=== PATIENT | male | born 1930 | race Caucasian/White ===

== ENCOUNTER 2016-08-24 13:11 | Emergency (ER) | payer MEDICARE, MEDICAID ==
[2016-08-24] MEDS ORDERED: NS 0.9% 1000 ML* 1,000 ML IV SCH (14:30)
[2016-08-24 14:47] LABS: Hematocrit 42 % (42-52); Hemoglobin 14.1 g/dl (14.0-18.0); Mean Corpuscular HGB Conc 33 g/dl (31-36); Mean Corpuscular Hemoglobin 32 pg (27-31); Mean Corpuscular Volume 97 fL (80-94); Mean Platelet Volume 8 um3 (7.4-10.4); Red Blood Count 4.35 10^6/ul (4.0-5.4); Red Cell Distribution Width 14 % (10.5-15); White Blood Count 7.1 10^3/ul (3.5-10.8)
--- NOTE | 2016-08-24 14:55 | RAD ---
HISTORY: Increased confusion COMPARISONS: None TECHNIQUE: Multiple contiguous axial CT scans were obtained of the head without intravenous contrast. FINDINGS: HEMORRHAGE/INFARCT: There is no hemorrhage or acute infarct. MASSES/SHIFT: There is no mass or shift. EXTRA-AXIAL SPACES: There are no extra-axial fluid collections. SULCI AND VENTRICLES: The sulci and ventricles are normal in size and position for the patient's stated age. CEREBRUM: There is hypoattenuation of the periventricular and subcortical white matter. BRAINSTEM: There are no focal parenchymal abnormalities. CEREBELLUM: There are no focal parenchymal abnormalities. VESSELS: The vessels are grossly normal. PARANASAL SINUSES: The paranasal sinuses are clear. ORBITS: The orbits are unremarkable. BONES AND SOFT TISSUE: No bone or soft tissue abnormalities are noted. OTHER: None IMPRESSION: NO ACUTE INTRACRANIAL PATHOLOGY.
[2016-08-24 15:06] LABS: Albumin 3.9 g/dL (3.2-5.2); BUN/Creatinine Ratio 22.2 (8-20); C Reactive Protein 13.53 mg/L (< 5.00); Calcium 9.4 mg/dL (8.6-10.3); EGFR African American 102.7 (>60); EGFR Non-African American 79.8 (>60); Globulin 2.9 g/dL (2-4); Magnesium 2.4 mg/dL (1.9-2.7); Potassium 3.7 mmol/L (3.5-5.0); Total Bilirubin 0.6 mg/dL (0.2-1.0); Total Protein 6.8 g/dL (6.4-8.9)
[2016-08-24 15:07] LABS: Troponin I 0.01 ng/mL (<0.04)
--- NOTE | 2016-08-24 15:07 | RAD ---
Indication: No solid bowel movements. Rectal seepage. Comparison: October 29, 2015 Technique: Supine and upright views of the abdomen. Report: No radiographic evidence for free air. Unremarkable bowel gas pattern. Large volume of stool present throughout the colon however with only mild rectal distention with stool. Negative for dilated bowel loops to indicate obstruction. Pelvic phleboliths. No suspicious calcifications or mass effect. Clear lung bases. IMPRESSION: Large volume of stool throughout the colon without evidence for bowel obstruction. Similar pattern to the prior exam.
[2016-08-24 15:25] LABS: TSH (Thyroid Stimulating Horm) 0.23 mcIU/mL (0.34-5.60)
[2016-08-24 15:53] LABS: Urine Bacteria Absent (Absent); Urine Bilirubin Negative (Negative); Urine Glucose Negative (Negative); Urine Nitrite Negative (Negative)
--- NOTE | 2016-08-24 16:31 | ED ---
Lois Ram Edward, scribed for Jaxson Gutiérrez MD on 08/24/16 at 1405 . GI/ HPI - HPI Summary HPI Summary: 86 y/o male presents to ED c/o increased confusion and fecal seepage. Patient's confusion has been getting progressively worse for the past 7-10 days, according to the patient's daughter in law. The fecal seepage started 3-4 days ago. Associated sx: constipation (last movement one week ago), chronic SOB, increased frequency of urination, bilateral pedal edema and diarrhea. Denies pain, CP, ABD pain, back pain and dry mucosa. Patient was brought in with concerns of fecal impaction by his [id number]. PMHx dementia, fecal impaction, UTI and emphysema. Patient was recently moved into [facility] in [place]. - History of Current Complaint Chief Complaint: EDGeneral Stated Complaint: CONFUSION,CONSTIPATED Hx Obtained From: Patient, Family/Talent Development Consultant - [id number] Onset/Duration: Started Days Ago - Increased confusion started 7-10 days ago, Still Present Pain Intensity: 0 Location of Pain: None Associated Signs and Symptoms: Positive: Constipation, Discharge - Fecal seepage , Diarrhea, Other: - Increased confusion, bilateral pedal edema, mild chronic SOB. Negative: Back Pain, Abdominal Pain, Chest Pain - Additional Pertinent History Primary Care Physician: JOSE - Allergy/Home Medications Allergies/Adverse Reactions: Allergies Allergy/AdvReac Type Severity Reaction Status Date / Time No Known Allergies Allergy Verified 10/24/15 16:22 PMH/Surg Hx/FS Hx/Imm Hx Previously Healthy: No Endocrine/Hematology History: Reports: Hx Thyroid Disease Denies: Hx Anticoagulant Therapy, Hx Diabetes Cardiovascular History: Reports: Hx Angina, Hx Hypercholesterolemia, Hx Hypertension, Other Cardiovascular Problems/Disorders - ANGINA Denies: Hx Congestive Heart Failure, Hx Deep Vein Thrombosis, Hx Myocardial Infarction, Hx Pacemaker/ICD Respiratory History: Reports: Hx Chronic Obstructive Pulmonary Disease (COPD), Other Respiratory Problems/Disorders - COPD Denies: Hx Asthma, Hx Lung Cancer, Hx Pneumonia, Hx Pulmonary Embolism GI History: Reports: Hx Gastroesophageal Reflux Disease - WELL CONTROLLED Denies: Hx Gall Bladder Disease, Hx Gastrointestinal Bleed, Hx Ulcer, Hx Urosepsis History: Reports: Hx Benign Prostatic Hyperplasia, Other Problems/ Disorders - indwelling piedra Denies: Hx Kidney Stones, Hx Renal Disease Sensory History: Reports: Hx Contacts or Glasses, Hx Hearing Aid - BILAT Opthamlomology History: Reports: Hx Contacts or Glasses Neurological History: Denies: Hx Dementia, Hx Migraine, Hx Seizures, Hx Transient Ischemic Attacks (TIA) Psychiatric History: Denies: Hx Anxiety, Hx Depression, Hx Schizophrenia, Hx Bipolar Disorder - Surgical History Surgery Procedure, Year, and Place: 2014 Hx Anesthesia Reactions: No Infectious Disease History: No Infectious Disease History: Denies: Hx Clostridium Difficile, Hx Hepatitis, Hx Human Immunodeficiency Virus (HIV), Hx of Known/Suspected MRSA, Hx Shingles, Hx Tuberculosis, Hx Known/ Suspected VRE, Hx Known/Suspected VRSA, History Other Infectious Disease, Traveled Outside the [place] in Last 30 Days - Family History Family History: no fhx of malignant hyperthermia or anesthesia reaction - Social History Occupation: Retired Lives: Assisted Living - [place] Alcohol Use: None Hx Substance Use: No Substance Use Type: Reports: None Hx Tobacco Use: Yes Smoking Status (MU): Former Smoker Type: Cigarettes Length of Time of Smoking/Using Tobacco: 40 years Have You Smoked in the Last Year: No Review of Systems Constitutional: Negative Eyes: Negative ENT: Negative Cardiovascular: Negative Negative: Chest Pain Positive: Shortness Of Breath Positive: Diarrhea, Other - Constipation. Negative: Abdominal Pain Positive: frequency - Increased frequency Positive: Edema - Mild bilateral pedal edema Skin: Negative Neurological: Other - Increased confusion Psychological: Normal All Other Systems Reviewed And Are Negative: Yes Physical Exam Triage Information Reviewed: Yes Vital Signs On Initial Exam: Initial Vitals Temp 97.7 F 08/24/16 13:15 Vital Signs Reviewed: Yes Appearance: Positive: Well-Appearing, No Pain Distress Skin: Positive: Warm, Skin Color Reflects Adequate Perfusion, Dry Head/Face: Positive: Normal Head/Face Inspection Eyes: Positive: EOMI, JANINE ENT: Positive: Normal ENT inspection Neck: Positive: Supple, Nontender Respiratory/Lung Sounds: Positive: Clear to Auscultation, Breath Sounds Present Cardiovascular: Positive: RRR Abdomen Description: Positive: Nontender, Soft, Other: - Minimal discomfort in the LLQ to palpation Bowel Sounds: Positive: Present Musculoskeletal: Positive: Normal, Strength/ROM Intact Neurological: Positive: Sensory/Motor Intact, Alert, Oriented to Person Place, Time, Other - Mild confusion. Psychiatric: Positive: Affect/Mood Appropriate - [place] Coma Scale Best Eye Response: 4 - Spontaneous Best Motor Response: 6 - Obeys Commands Best Verbal Response: 5 - Oriented Coma Scale Total: 15 Diagnostics - Vital Signs Vital Signs Temp Pulse Resp BP Pulse Ox 08/24/16 14:00 63 17 95 08/24/16 13:31 66 28 162/60 98 08/24/16 13:29 74 97 08/24/16 13:17 97.7 F 75 20 148/93 95 08/24/16 13:15 97.7 F - Laboratory Lab Results: Lab Results 08/24/16 08/24/16 08/24/16 Range/Units 14:31 14:31 14:31 WBC 7.1 (3.5-10.8) 10^3/ul RBC 4.35 (4.0-5.4) 10^6/ul Hgb 14.1 (14.0-18.0) g/dl Hct 42 (42-52) % MCV 97 H (80-94) fL MCH 32 H (27-31) pg MCHC 33 (31-36) g/dl RDW 14 (10.5-15) % Plt Count 248 (150-450) 10^3/ul MPV 8 (7.4-10.4) um3 Neut % (Auto) 63.0 (38-83) % Lymph % (Auto) 24.3 L (25-47) % [place] % (Auto) 8.0 (1-9) % Eos % (Auto) 3.7 (0-6) % Baso % (Auto) 1.0 (0-2) % Absolute Neuts (auto) 4.5 (1.5-7.7) 10^3/ul Absolute Lymphs (auto) 1.7 (1.0-4.8) 10^3/ul Absolute Monos (auto) 0.6 (0-0.8) 10^3/ul Absolute Eos (auto) 0.3 (0-0.6) 10^3/ul Absolute Basos (auto) 0.1 (0-0.2) 10^3/ul Absolute Nucleated RBC 0.01 10^3/ul Nucleated RBC % 0.1 INR (Anticoag Therapy) 0.90 (0.89-1.11) APTT 31.8 (26.0-36.3) seconds Sodium 137 (133-145) mmol/L Potassium 3.7 (3.5-5.0) mmol/L Chloride 101 (101-111) mmol/L Carbon Dioxide 30 (22-32) mmol/L Anion Gap 6 (2-11) mmol/L BUN 20 (6-24) mg/dL Creatinine 0.90 (0.67-1.17) mg/dL Est GFR ( Amer) 102.7 (>60) Est GFR (Non-Af Amer) 79.8 (>60) BUN/Creatinine Ratio 22.2 H (8-20) Glucose 116 H (70-100) mg/dL Lactic Acid (0.5-2.0) mmol/L Calcium 9.4 (8.6-10.3) mg/dL Magnesium 2.4 (1.9-2.7) mg/dL Total Bilirubin 0.60 (0.2-1.0) mg/dL AST 16 (13-39) U/L ALT 12 (7-52) U/L Alkaline Phosphatase 75 (34-104) U/L Total Creatine Kinase 117 (10-223) U/L CK-MB (CK-2) 5.5 (0.6-6.3) ng/mL Troponin I 0.01 (<0.04) ng/mL C-Reactive Protein 13.53 H (< 5.00) mg/L Total Protein 6.8 (6.4-8.9) g/dL Albumin 3.9 (3.2-5.2) g/dL Globulin 2.9 (2-4) g/dL Albumin/Globulin Ratio 1.3 (1-3) Lipase 12 (11.0-82.0) U/L TSH 0.23 L (0.34-5.60) mcIU/mL Urine Color Urine Appearance Urine pH (5-9) Ur Specific [place] (1.010-1.030) Urine Protein (Negative) Urine Ketones (Negative) Urine Blood (Negative) Urine Nitrate (Negative) Urine Bilirubin (Negative) Urine Urobilinogen (Negative) Ur Leukocyte Esterase (Negative) Urine WBC (Auto) (Absent) Urine RBC (Auto) (Absent) Ur Squamous Epith Cells (Absent) Urine Bacteria (Absent) Urine Glucose (Negative) 08/24/16 08/24/16 Range/Units 14:31 15:21 WBC (3.5-10.8) 10^3/ul RBC (4.0-5.4) 10^6/ul Hgb (14.0-18.0) g/dl Hct (42-52) % MCV (80-94) fL MCH (27-31) pg MCHC (31-36) g/dl RDW (10.5-15) % Plt Count (150-450) 10^3/ul MPV (7.4-10.4) um3 Neut % (Auto) (38-83) % Lymph % (Auto) (25-47) % [place] % (Auto) (1-9) % Eos % (Auto) (0-6) % Baso % (Auto) (0-2) % Absolute Neuts (auto) (1.5-7.7) 10^3/ul Absolute Lymphs (auto) (1.0-4.8) 10^3/ul Absolute Monos (auto) (0-0.8) 10^3/ul Absolute Eos (auto) (0-0.6) 10^3/ul Absolute Basos (auto) (0-0.2) 10^3/ul Absolute Nucleated RBC 10^3/ul Nucleated RBC % INR (Anticoag Therapy) (0.89-1.11) APTT (26.0-36.3) seconds Sodium (133-145) mmol/L Potassium (3.5-5.0) mmol/L Chloride (101-111) mmol/L Carbon Dioxide (22-32) mmol/L Anion Gap (2-11) mmol/L BUN (6-24) mg/dL Creatinine (0.67-1.17) mg/dL Est GFR ( Amer) (>60) Est GFR (Non-Af Amer) (>60) BUN/Creatinine Ratio (8-20) Glucose (70-100) mg/dL Lactic Acid 0.8 (0.5-2.0) mmol/L Calcium (8.6-10.3) mg/dL Magnesium (1.9-2.7) mg/dL Total Bilirubin (0.2-1.0) mg/dL AST (13-39) U/L ALT (7-52) U/L Alkaline Phosphatase (34-104) U/L Total Creatine Kinase (10-223) U/L CK-MB (CK-2) (0.6-6.3) ng/mL Troponin I (<0.04) ng/mL C-Reactive Protein (< 5.00) mg/L Total Protein (6.4-8.9) g/dL Albumin (3.2-5.2) g/dL Globulin (2-4) g/dL Albumin/Globulin Ratio (1-3) Lipase (11.0-82.0) U/L TSH (0.34-5.60) mcIU/mL Urine Color Straw Urine Appearance Clear Urine pH 7.0 (5-9) Ur Specific [place] 1.010 (1.010-1.030) Urine Protein Negative (Negative) Urine Ketones Negative (Negative) Urine Blood Negative (Negative) Urine Nitrate Negative (Negative) Urine Bilirubin Negative (Negative) Urine Urobilinogen Negative (Negative) Ur Leukocyte Esterase Trace H (Negative) Urine WBC (Auto) Trace(0-5/hpf) (Absent) Urine RBC (Auto) Absent (Absent) Ur Squamous Epith Cells Present H (Absent) Urine Bacteria Absent (Absent) Urine Glucose Negative (Negative) Result Diagrams: 08/24/16 14:31 08/24/16 14:31 Lab Statement: Any lab studies that have been ordered have been reviewed, and results considered in the medical decision making process. - Radiology ABD XRAY Xray Interpretation: Positive (See Comments) - Large volume of stool throughout the colon without evidence for bowel obstruction. Similar pattern to the prior exam. Radiology Interpretation Completed By: Radiologist - CT BRAIN CT CT Interpretation: No Acute Changes - No acute intracranial pathology CT Interpretation Completed By: Radiologist GIGU Course/Dx - Course Course Of Treatment: NO CRITICAL CARE TIME. DISCUSSED RESULTS WITH PATIENT/ DAUGHTER. PATIENT ONLY MILDLY CONFUSED NOW. DISCUSSED WITH DR MEJIA WHO RECOMMENDED PO TREATMENTS AND ENEMAS PRIOR TO CONSIDERING SIGMOIDOSCOPY OR OTHER INTERVENTIONS. THIS WAS ALL DISCUSSED WITH PATIENT/DAUGHTER. DAUGHTER DECLINES ENEMAS THIS WAS UNSUCCESSFUL IN THE PAST AND CAUSED THE PATIENT GREAT DISTRESS. THEY FEEL COMFORTABLE GOING HOME. TONIGHT WILL TAKE MAG CITRATE. IF THAT IS NOT SUCCESSFUL, TOMOOROW THEY WILL TRY GOLYTELY. WILL F/U WITH PMD AND GI. WILL RETURN IF WORSE. - Diagnoses Provider Diagnoses: Altered mental state, Obstipation, Constipation Discharge - Discharge Plan Condition: Stable Disposition: HOME Prescriptions: Magnesium CITRATE* [Citrate of Magnesia*] 300 ml PO ONCE #1 btl Peg 3000 Gi Lavage* [Golytely*] 4,000 ml PO ONCE #1 btl Patient Education Materials: Altered Mental Status (ED), Constipation (ED), Obstipation (ED) Referrals: Nav Feng MD [Primary Care Provider] - Additional Instructions: FOLLOW UP WITH YOUR DOCTOR. RETURN TO THE EMERGENCY DEPARTMENT FOR ANY WORSENING OF YOUR CONDITION; INCREASED CONFUSION, FEVER, YOU FEEL ILL, PAIN OR QUESTIONS OR CONCERNS. The documentation as recorded by the Lois foster Edward accurately reflects the service I personally performed and the decisions made by me, Jaxson Gutiérrez MD.
[2016-08-24 16:42] VITALS: BP 147/57
== END 2016-08-24 16:44 | disposition home or self-care (01) ==
LOC: ED 13:11
DX: R41.82 Altered mental status, unspecified (principal); K59.00 Constipation, unspecified; R06.02 Shortness of breath; Z87.891 Personal history of nicotine dependence; R19.7 Diarrhea, unspecified; R60.9 Edema, unspecified
CPT/HCPCS: 36415; 70450; 74020; 80053; 81003; 81015; 82550; 82553; 83605; 83690; 83735; 84443; 84484; 85025; 85610; 85730; 86140; 87086; 99283

== ENCOUNTER 2016-08-25 01:52 | Emergency (ER) | payer MEDICARE, MEDICAID ==
--- NOTE | 2016-08-25 03:16 | ED ---
Quyen Ram Salem, scribed for Lopez Calero MD on 08/25/16 at 0216 . Head Injury - HPI Summary HPI Summary: Patient is a 86 y/o M who presents to the ED per EMS s/p fall earlier today. He states that the bathroom floor was wet and that he slipped. Pt denies LOC, but reports abrasion to forehead. PMHx of COPD, angina, and constipation. - History Of Current Complaint Chief Complaint: EDHeadInjury Stated Complaint: FALL Time Seen by Provider: 08/25/16 01:54 Hx Obtained From: Patient, EMS Mechanism Of Injury: Fall From A Standing Position Onset/Duration: Started Hours Ago Onset of Pain: Hours Severity Currently: Moderate Severity Initially: Moderate Pain Intensity: 0 Pain Scale Used: 0-10 Numeric Location of Head Injury: Frontal Location: Discrete At: - Forehead. Associated Signs And Symptoms: Negative - Allergies/Home Medications Allergies/Adverse Reactions: Allergies Allergy/AdvReac Type Severity Reaction Status Date / Time No Known Allergies Allergy Verified 10/24/15 16:22 PMH/Surg Hx/FS Hx/Imm Hx Endocrine/Hematology History: Reports: Hx Thyroid Disease Denies: Hx Anticoagulant Therapy, Hx Diabetes Cardiovascular History: Reports: Hx Angina, Hx Hypercholesterolemia, Hx Hypertension, Other Cardiovascular Problems/Disorders - ANGINA Denies: Hx Congestive Heart Failure, Hx Deep Vein Thrombosis, Hx Myocardial Infarction, Hx Pacemaker/ICD Respiratory History: Reports: Hx Chronic Obstructive Pulmonary Disease (COPD), Other Respiratory Problems/Disorders - COPD Denies: Hx Asthma, Hx Lung Cancer, Hx Pneumonia, Hx Pulmonary Embolism GI History: Reports: Hx Gastroesophageal Reflux Disease - WELL CONTROLLED Denies: Hx Gall Bladder Disease, Hx Gastrointestinal Bleed, Hx Ulcer, Hx Urosepsis History: Reports: Hx Benign Prostatic Hyperplasia, Other Problems/ Disorders - indwelling piedra Denies: Hx Kidney Stones, Hx Renal Disease Sensory History: Reports: Hx Contacts or Glasses, Hx Hearing Aid - BILAT Opthamlomology History: Reports: Hx Contacts or Glasses Neurological History: Denies: Hx Dementia, Hx Migraine, Hx Seizures, Hx Transient Ischemic Attacks (TIA) Psychiatric History: Denies: Hx Anxiety, Hx Depression, Hx Schizophrenia, Hx Bipolar Disorder - Surgical History Surgery Procedure, Year, and Place: [id number] Hx Anesthesia Reactions: No Infectious Disease History: No Infectious Disease History: Denies: Hx Clostridium Difficile, Hx Hepatitis, Hx Human Immunodeficiency Virus (HIV), Hx of Known/Suspected MRSA, Hx Shingles, Hx Tuberculosis, Hx Known/ Suspected VRE, Hx Known/Suspected VRSA, History Other Infectious Disease, Traveled Outside the [place] in Last 30 Days - Family History Known Family History: Positive: Cardiac Disease Family History: no fhx of malignant hyperthermia or anesthesia reaction - Social History Alcohol Use: Occasionally Hx Substance Use: No Substance Use Type: Reports: None Hx Tobacco Use: Yes Smoking Status (MU): Former Smoker Type: Cigarettes Length of Time of Smoking/Using Tobacco: 40 years Have You Smoked in the Last Year: No Review of Systems Positive: Other - Abrasion to forehead. Neurological: Other - No LOC. All Other Systems Reviewed And Are Negative: Yes Physical Exam Triage Information Reviewed: Yes Vital Signs On Initial Exam: Initial Vitals Temp Pulse Resp BP Pulse Ox 98.6 F 67 16 150/57 95 08/25/16 01:59 08/25/16 01:59 08/25/16 01:59 08/25/16 01:59 08/25/16 01:59 Vital Signs Reviewed: Yes Appearance: Positive: Well-Appearing, No Pain Distress Skin: Positive: Warm, Other - abrasion to forehead Eyes: Positive: JANNIE ENT: Positive: Hearing grossly normal Neck: Positive: Supple Respiratory/Lung Sounds: Positive: Clear to Auscultation, Breath Sounds Present Cardiovascular: Positive: RRR Abdomen Description: Positive: Nontender, Soft Bowel Sounds: Positive: Present Musculoskeletal: Positive: Strength/ROM Intact Neurological: Positive: Alert, Oriented to Person Place, Time Psychiatric: Positive: Affect/Mood Appropriate - [place] Coma Scale Coma Scale Total: 15 Diagnostics - Vital Signs Vital Signs Temp Pulse Resp BP Pulse Ox 08/25/16 02:00 98.6 F 67 16 150/57 95 08/25/16 01:59 98.6 F 67 16 150/57 95 - Laboratory Lab Statement: Any lab studies that have been ordered have been reviewed, and results considered in the medical decision making process. - CT BRAIN CT Interpretation Completed By: Radiologist - Findings: Involutional changes with moderate ventriculomegaly again noted. No hemorrhage. No mass. No visible acute infract. Osseous structures are intact. Re-Evaluation - Re-Evaluation First Eval Change: Improved Head Injury Course/Dx Course Of Treatment: 86 y/o M presents per EMS s/p fall earlier today. Pt denies LOC, but reports abrasion to forehead. CT of brain shows, per radiology, Findings: Involutional changes with moderate ventriculomegaly again noted. No hemorrhage. No mass. No visible acute infract. Osseous structures are intact. Pt will be DC'd. - Diagnoses Provider Diagnoses: Head injury Discharge - Discharge Plan Condition: Stable Disposition: HOME Patient Education Materials: Head Injury (ED) Referrals: Nav Feng MD [Primary Care Provider] - Additional Instructions: Please follow up with your primary care provider. The documentation as recorded by the Quyen foster Salem accurately reflects the service I personally performed and the decisions made by me, Lopez Calero MD.
[2016-08-25 03:40] VITALS: BP 134/61
--- NOTE | 2016-08-25 08:07 | RAD ---
HISTORY: Fall, head trauma COMPARISONS: None TECHNIQUE: Multiple contiguous axial CT scans were obtained of the head without intravenous contrast. FINDINGS: HEMORRHAGE/INFARCT: There is no hemorrhage or acute infarct. MASSES/SHIFT: There is no mass or shift. EXTRA-AXIAL SPACES: There are no extra-axial fluid collections. SULCI AND VENTRICLES: The sulci and ventricles are normal in size and position for the patient's stated age. CEREBRUM: There is hypoattenuation of the periventricular and subcortical white matter. BRAINSTEM: There are no focal parenchymal abnormalities. CEREBELLUM: There are no focal parenchymal abnormalities. VESSELS: The vessels are grossly normal. PARANASAL SINUSES: The paranasal sinuses are clear. ORBITS: The orbits are unremarkable. BONES AND SOFT TISSUE: No bone or soft tissue abnormalities are noted. OTHER: None IMPRESSION: NO ACUTE INTRACRANIAL PATHOLOGY.
== END 2016-08-25 04:30 | disposition home or self-care (01) ==
LOC: ED 01:52
DX: S09.90XA Unspecified injury of head, initial encounter (principal); S00.81XA Abrasion of other part of head, initial encounter; W19.XXXA Unspecified fall, initial encounter; Y93.9 Activity, unspecified; Y92.89 Other specified places as the place of occurrence of the external cause; Y99.8 Other external cause status; Z87.891 Personal history of nicotine dependence; Y92.9 Unspecified place or not applicable
CPT/HCPCS: 70450; 99283

== ENCOUNTER → 2016-10-16 14:01 | Emergency (ER) | payer MEDICAID, MEDICARE ==
[2016-10-16 14:17] VITALS: BP 152/59
--- NOTE | 2016-10-16 15:04 | ED ---
Head Injury - HPI Summary HPI Summary: Pt w/ hearing deficit and mild dementia here from long-term - report of him falling out of chair and hitting his head - lost balance while reaching for something while seated and fell. Pt reports he fell - mentions something about his protective undergarments and that he couldn't get up so they brought him here. Denies pain - reports he's embarrassed more than anything. No DANIELSON, neck pain, chest pain, back pain, SOB, LE pain. Feels well. - History Of Current Complaint Chief Complaint: EDHeadInjury Stated Complaint: FALL, HEAD INJURY Time Seen by Provider: 10/16/16 14:08 Hx Obtained From: Patient Pain Intensity: 0 - Allergies/Home Medications Allergies/Adverse Reactions: Allergies Allergy/AdvReac Type Severity Reaction Status Date / Time No Known Allergies Allergy Verified 10/24/15 16:22 PMH/Surg Hx/FS Hx/Imm Hx Previously Healthy: Yes Endocrine/Hematology History: Reports: Hx Thyroid Disease Denies: Hx Anticoagulant Therapy, Hx Diabetes Cardiovascular History: Reports: Hx Angina, Hx Hypercholesterolemia, Hx Hypertension, Other Cardiovascular Problems/Disorders - ANGINA Denies: Hx Congestive Heart Failure, Hx Deep Vein Thrombosis, Hx Myocardial Infarction, Hx Pacemaker/ICD Respiratory History: Reports: Hx Chronic Obstructive Pulmonary Disease (COPD) Denies: Hx Asthma, Hx Lung Cancer, Hx Pneumonia, Hx Pulmonary Embolism GI History: Reports: Hx Gastroesophageal Reflux Disease - WELL CONTROLLED Denies: Hx Gall Bladder Disease, Hx Gastrointestinal Bleed, Hx Ulcer, Hx Urosepsis History: Reports: Hx Benign Prostatic Hyperplasia, Other Problems/ Disorders - indwelling piedra Denies: Hx Kidney Stones, Hx Renal Disease Sensory History: Reports: Hx Contacts or Glasses, Hx Hearing Aid - BILAT Opthamlomology History: Reports: Hx Contacts or Glasses Neurological History: Denies: Hx Dementia, Hx Migraine, Hx Seizures, Hx Transient Ischemic Attacks (TIA) Psychiatric History: Denies: Hx Anxiety, Hx Depression, Hx Schizophrenia, Hx Bipolar Disorder - Surgical History Surgery Procedure, Year, and Place: TUR2014 Hx Anesthesia Reactions: No Infectious Disease History: No Infectious Disease History: Denies: Hx Clostridium Difficile, Hx Hepatitis, Hx Human Immunodeficiency Virus (HIV), Hx of Known/Suspected MRSA, Hx Shingles, Hx Tuberculosis, Hx Known/ Suspected VRE, Hx Known/Suspected VRSA, History Other Infectious Disease, Traveled Outside the [place] in Last 30 Days - Family History Known Family History: Positive: Cardiac Disease Family History: no fhx of malignant hyperthermia or anesthesia reaction - Social History Occupation: Retired [facility]: [facility] Alcohol Use: Occasionally Hx Substance Use: No Substance Use Type: Reports: None Hx Tobacco Use: Yes Smoking Status (MU): Former Smoker Type: Cigarettes Length of Time of Smoking/Using Tobacco: 40 years Have You Smoked in the Last Year: No Review of Systems Constitutional: Negative Negative: Fatigue Eyes: Negative Negative: Photophobia, Blurred Vision, Diplopia ENT: Negative Negative: Dental Pain, Sore Throat, Ear Ache Cardiovascular: Negative Negative: Chest Pain Respiratory: Negative Negative: Shortness Of Breath Gastrointestinal: Negative Negative: Abdominal Pain, Vomiting, Nausea Positive: no symptoms reported Musculoskeletal: Negative Negative: Arthralgia, Myalgia, Decreased ROM, Edema Skin: Negative Negative: Bruising Neurological: Negative Negative: Headache, Weakness, Paresthesia, Numbness, Syncope, Slurred Speech Psychological: Normal All Other Systems Reviewed And Are Negative: Yes Physical Exam Triage Information Reviewed: Yes Vital Signs On Initial Exam: Initial Vitals Temp Pulse Resp BP Pulse Ox 98.3 F 88 18 152/59 93 10/16/16 14:11 10/16/16 14:11 10/16/16 14:11 10/16/16 14:11 10/16/16 14:11 Vital Signs Reviewed: Yes Appearance: Positive: Well-Appearing, No Pain Distress, Well-Nourished Skin: Positive: Warm, Dry - no signs of trauma over body - bruising, lacerations , swelling, scabbing, etc Head/Face: Positive: Normal Head/Face Inspection Eyes: Positive: Normal, EOMI, JANINE, Conjunctiva Clear ENT: Positive: Pharynx normal. Negative: Hearing grossly normal - hearing aids B/L - still has reduced hearing, Nasal congestion, Nasal drainage, Trismus, Muffled/hoarse voice Dental: Negative: Dental Fracture @ Neck: Positive: Supple, Nontender Respiratory/Lung Sounds: Positive: Clear to Auscultation, Breath Sounds Present. Negative: Rales, Rhonchi, Subcutaneous Emphysema, Stridor, Tracheal Deviation Cardiovascular: Positive: Normal, RRR, Pulses are Symmetrical in both Upper and Lower Extremities, S1, S2 Abdomen Description: Positive: Nontender, No Organomegaly, Soft Bowel Sounds: Positive: Present Musculoskeletal: Positive: Normal, Strength/ROM Intact Neurological: Positive: Normal, Sensory/Motor Intact, Alert, Oriented to Person Place, Time, CN Intact II-III Psychiatric: Positive: Normal - pleasant - mild element of dementia and very difficult hearing but appears to be in good spirits and has current body awareness Diagnostics - Vital Signs Vital Signs Temp Pulse Resp BP Pulse Ox 10/16/16 14:11 98.3 F 88 18 152/59 93 - Laboratory Lab Statement: Any lab studies that have been ordered have been reviewed, and results considered in the medical decision making process. Head Injury Course/Dx Course Of Treatment: Pt sent here from long-term for fall - no acute injury reported by pt, no pain and no neuro deficits appreciated on exam. CT's are neg for acute findings however pt has moderate to severe cervical central canal narrowing w/ possible compression on spinal cord. Spoke w/ Jael, nurse in [facility]" who is aware of this finding and that he needs f/u w/ PCP this week to discuss preventative care plan as inury to neck could result in paralysis/ . Jael voices understanding and agrees to contact family as no one is here w/ him today. He will return to long-term with d/c instructions. Danger s/sx reviewed. - Diagnoses Provider Diagnoses: Fall, Central stenosis of spinal canal Discharge - Discharge Plan Condition: Stable Disposition: HOME Patient Education Materials: Fall Prevention for Older Adults (ED), Cervical Spinal Stenosis (ED) Referrals: Nav Feng MD [Primary Care Provider] - Additional Instructions: Your recent fall does not reveal new injuries. Your CT scan of your neck however reveals moderate to severe narrowing of your spinal canal and with likely compression on your spinal cord. You do not appear to have neurological deficits today (other than reduced hearing) so no action was taken to address this here in the ED. It is advised however that you follow-up with your PCP this week for further review of preventative care plan as an acute injury here could result in severe neurological injury and debilitating outcomes. Jael, nurse in [facility], is aware and may be of assistance in helping you contact your family and PCP for follow-up appointment. *If you develop headache, visual change, weakness, numbness, difficulty breathing or swallowing or syncope, return to ED
--- NOTE | 2016-10-16 15:35 | RAD ---
INDICATION: Head injury. COMPARISON: Comparison is made with prior CT of the brain from August 25, 2016. TECHNIQUE: Contiguous axial sections of the brain were obtained from the skull base to the vertex without contrast. FINDINGS: The ventricles, cisterns and sulci are enlarged consistent with diffuse atrophy. There are small areas of decreased density in the subcortical and periventricular white matter suggestive of mild chronic small vessel ischemic changes. No other focal abnormality or mass effect is seen. There is no evidence for hemorrhage. No significant focal osseous abnormality is seen. The visualized portion of the paranasal sinuses and mastoid air cells appear clear. IMPRESSION: NO EVIDENCE FOR ACUTE INTRACRANIAL ABNORMALITY.
--- NOTE | 2016-10-16 15:44 | RAD ---
INDICATION: Trauma. COMPARISON: There are no prior studies available for comparison. TECHNIQUE: Contiguous axial sections were obtained from the skull base through the T3 vertebra. Images were reconstructed in the sagittal and coronal planes. FINDINGS: There is straightening of the cervical spine with loss of the normal cervical lordosis. In addition there is posterior subluxation of the C4 vertebra relative to the C3 and C5 vertebra of approximately 4 mm. No fracture is seen. At the C3-C4 level there is posterior uncinate process spurring and moderate hypertrophic changes within the facet joints. There appears to be mild to moderate spinal canal narrowing and moderate to severe bilateral neural foraminal narrowing. At the C4-C5 level there is posterior uncinate process spurring and moderate hypertrophic changes within the facet joints. There is moderate to severe spinal canal narrowing and moderate to severe bilateral neural foraminal narrowing. There is likely spinal cord compression at this level. At the C5-C6 level there is mild posterior uncinate process spurring and moderate hypertrophic changes within the facet joints. There is mild to moderate spinal canal narrowing and moderate bilateral neural foraminal narrowing. At the C6-C7 level there is posterior uncinate process spurring and mild hypertrophic changes within the facet joints. There is moderate spinal canal narrowing and moderate bilateral neural foraminal narrowing. IMPRESSION: 1. NO EVIDENCE FOR FRACTURE. 2. 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 3. 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 AT THAT LEVEL THERE IS MODERATE TO SEVERE SPINAL CANAL NARROWING AND LIKELY SPINAL CORD COMPRESSION. THIS COULD BE FURTHER EVALUATED WITH MR IMAGING CLINICALLY NEEDED.
== END | disposition home or self-care (01) ==
LOC: ED 14:01
DX: M48.00 Spinal stenosis, site unspecified (principal); F03.90 Unspecified dementia, unspecified severity, without behavioral disturbance, psychotic disturbance, mood disturbance, and anxiety; Z87.891 Personal history of nicotine dependence
CPT/HCPCS: 70450; 72125; 99281

== ENCOUNTER 2016-11-06 17:01 | Emergency (ER) | payer MEDICARE ==
--- NOTE | 2016-11-06 17:49 | ED ---
Lower Extremity - HPI Summary HPI Summary: 86M presents with right hip pain s/p fall. He states I have done it again. He states he tripped on something and fell. He landed on right hip. He has baseline dementia. He denies any head injury. He denies any chest pain, SOB, abdominal pain. He denies any upper extremity pain. He denies any numbness or tingling. He states he fell and was unable to get up and they helped him up and sent him here. He stats he just wants to go back,. - History of Current Complaint Chief Complaint: EDHipPelvisInjury Stated Complaint: FALL Time Seen by Provider: 11/06/16 17:40 Pain Intensity: 0 - Allergies/Home Medications Allergies/Adverse Reactions: Allergies Allergy/AdvReac Type Severity Reaction Status Date / Time No Known Allergies Allergy Verified 11/06/16 17:19 PMH/Surg Hx/FS Hx/Imm Hx Endocrine/Hematology History: Reports: Hx Thyroid Disease Denies: Hx Anticoagulant Therapy, Hx Diabetes Cardiovascular History: Reports: Hx Angina, Hx Hypercholesterolemia, Hx Hypertension, Other Cardiovascular Problems/Disorders - ANGINA Denies: Hx Congestive Heart Failure, Hx Deep Vein Thrombosis, Hx Myocardial Infarction, Hx Pacemaker/ICD Respiratory History: Reports: Hx Chronic Obstructive Pulmonary Disease (COPD) Denies: Hx Asthma, Hx Lung Cancer, Hx Pneumonia, Hx Pulmonary Embolism GI History: Reports: Hx Gastroesophageal Reflux Disease - WELL CONTROLLED Denies: Hx Gall Bladder Disease, Hx Gastrointestinal Bleed, Hx Ulcer, Hx Urosepsis History: Reports: Hx Benign Prostatic Hyperplasia, Other Problems/ Disorders - indwelling piedra Denies: Hx Kidney Stones, Hx Renal Disease Sensory History: Reports: Hx Contacts or Glasses, Hx Hearing Aid - BILAT Opthamlomology History: Reports: Hx Contacts or Glasses Neurological History: Denies: Hx Dementia, Hx Migraine, Hx Seizures, Hx Transient Ischemic Attacks (TIA) Psychiatric History: Denies: Hx Anxiety, Hx Depression, Hx Schizophrenia, Hx Bipolar Disorder - Surgical History Surgery Procedure, Year, and Place: TUR2014 Hx Anesthesia Reactions: No Infectious Disease History: Yes Infectious Disease History: Denies: Hx Clostridium Difficile, Hx Hepatitis, Hx Human Immunodeficiency Virus (HIV), Hx of Known/Suspected MRSA, Hx Shingles, Hx Tuberculosis, Hx Known/ Suspected VRE, Hx Known/Suspected VRSA, History Other Infectious Disease, Traveled Outside the [place] in Last 30 Days - Family History Known Family History: Positive: Cardiac Disease Family History: no fhx of malignant hyperthermia or anesthesia reaction - Social History Alcohol Use: Occasionally Hx Substance Use: No Substance Use Type: Reports: None Hx Tobacco Use: Yes Smoking Status (MU): Former Smoker Type: Cigarettes Length of Time of Smoking/Using Tobacco: 40 years Have You Smoked in the Last Year: No Review of Systems Negative: Fever Negative: Chest Pain Negative: Shortness Of Breath Positive: Myalgia - right hip pain All Other Systems Reviewed And Are Negative: Yes Physical Exam Triage Information Reviewed: Yes Vital Signs On Initial Exam: Initial Vitals BP 160/63 11/06/16 17:11 Vital Signs Reviewed: Yes Appearance: Positive: Well-Appearing Skin: Positive: Warm, Dry Head/Face: Positive: Normal Head/Face Inspection Eyes: Positive: Normal, EOMI, JANINE, Conjunctiva Clear ENT: Positive: Normal ENT inspection, Pharynx normal, TMs normal Respiratory/Lung Sounds: Positive: Clear to Auscultation, Breath Sounds Present Cardiovascular: Positive: Normal, RRR Musculoskeletal: Positive: Strength/ROM Intact - right hip, Other - good pulses , no ecchymosis over hip Neurological: Positive: Sensory/Motor Intact, Alert, Oriented to Person Place, Time, CN Intact II-III - [place] Coma Scale Best Eye Response: 4 - Spontaneous Best Motor Response: 6 - Obeys Commands Best Verbal Response: 5 - Oriented Coma Scale Total: 15 Diagnostics - Vital Signs Vital Signs Temp Pulse Resp BP Pulse Ox 11/06/16 17:30 64 150/60 92 11/06/16 17:14 68 94 11/06/16 17:12 98.5 F 73 14 160/63 100 11/06/16 17:11 160/63 - Laboratory Lab Statement: Any lab studies that have been ordered have been reviewed, and results considered in the medical decision making process. - Radiology hip Xray Interpretation: No Acute Changes Radiology Interpretation Completed By: Radiologist - CT brain CT Interpretation: No Acute Changes CT Interpretation Completed By: Radiologist Lower Extremity Course/Dx - Course Course Of Treatment: 86M presents with right hip pain s/p fall. He states I have done it again. He states he tripped on something and fell. He landed on right hip. He has baseline dementia. He denies any head injury. He denies any chest pain, SOB, abdominal pain. He denies any upper extremity pain. He denies any numbness or tingling. He states he fell and was unable to get up and they helped him up and sent him here. on exam normal neuro exam. mild tenderness to right hip. got CT brain due to baseline dementia and possible head injury which was normal. hip xray normal. told to take tyenlol. patient understands and agrees with plan. - Diagnoses Differential Diagnosis/HQI/PQRI: Positive: Contusion, Fracture (Closed), Sprain Provider Diagnoses: Fall, Right hip pain Discharge - Discharge Plan Condition: Good Disposition: HOME Patient Education Materials: Hip Contusion (ED) Referrals: Nav Feng MD [Primary Care Provider] - Additional Instructions: Take Tylenol every 6 hours as needed for pain Apply ice, rest, elevate Follow up with primary care physician within 5 days Return to ED if develop any new or worsening symptoms
--- NOTE | 2016-11-06 18:23 | RAD ---
Indication: Fall, head injury. CT of the brain was performed without IV contrast. Ventricular structures are midline. No midline shift is noted. The extra-axial spaces are unremarkable. There is no evidence of intracranial mass or hemorrhage. Chronic ischemic White matter change is noted. Mastoid air cells and paranasal sinuses are otherwise unremarkable. Some minimal fluid is noted in the right ethmoid air cells. IMPRESSION: NO INTRACRANIAL MASS OR HEMORRHAGE NOTED. CHRONIC ISCHEMIC WHITE MATTER CHANGE.
--- NOTE | 2016-11-06 18:25 | RAD ---
Indication: Right hip pain. 2 views of the right hip and an AP view of the pelvis demonstrates no fracture. Pelvic ring is intact. Sacroiliac joints are unremarkable. Atherosclerosis with calcification of the common femoral artery is noted. IMPRESSION: No fracture of the right hip is noted.
[2016-11-06 18:57] VITALS: BP 154/61
== END 2016-11-06 18:58 | disposition home or self-care (01) ==
LOC: ED 17:01
DX: M25.551 Pain in right hip (principal); Z86.79 Personal history of other diseases of the circulatory system; Z91.81 History of falling
CPT/HCPCS: 70450; 99282

== ENCOUNTER 2016-11-27 18:34 | Emergency (ER) | payer MEDICARE ==
--- NOTE | 2016-11-27 19:58 | RAD ---
INDICATION: Head injury. COMPARISON: Comparison is made with a prior study from November 06, 2016. TECHNIQUE: Contiguous axial sections of the brain were obtained from the skull base to the vertex without contrast. FINDINGS: The ventricles, cisterns and sulci are enlarged consistent with diffuse atrophy. There are small areas of decreased density in the subcortical and periventricular white matter suggestive of mild chronic small vessel ischemic changes. There is no evidence for hemorrhage. There is focal soft tissue swelling in the scalp in the occipital region with a small amount of air present. No fracture is seen. The visualized portion of the paranasal sinuses and mastoid air cells appear clear. IMPRESSION: NO EVIDENCE FOR ACUTE INTRACRANIAL ABNORMALITY.
--- NOTE | 2016-11-27 20:19 | ED ---
Nadja Ram Abhishek, scribed for Savage Liu MD on 11/27/16 at 1941 . Head Injury - HPI Summary HPI Summary: This patient is a 86 year old M presenting to [facility] accompanied by daughter with a chief complaint of head injury s/p fall since 1840. The patient rates the pain 4/10 in severity. Symptoms aggravated by nothing. Symptoms alleviated by nothing. Patient reports head pain in the back of the head, and laceration posterior head. Patient denies LOC, neck pain, and dizziness. PMHx includes COPD , angina, constipation, and HTN. - History Of Current Complaint Chief Complaint: EDHeadInjury Stated Complaint: FALL Time Seen by Provider: 11/27/16 19:22 Hx Obtained From: Patient Mechanism Of Injury: Fall From A Standing Position Onset/Duration: Started Hours Ago - 1 hour ago Onset of Pain: Post Accident - s/p fall Severity Currently: Mild Severity Initially: Mild Pain Intensity: 4 Pain Scale Used: 0-10 Numeric Location of Head Injury: Occipital Location: Discrete At: - posterior of the head Aggravating Factor(s): Other: - nothing Alleviating Factor(s): Other: - nothing Associated Signs And Symptoms: Other: - laceration at the posterior of the head - Allergies/Home Medications Allergies/Adverse Reactions: Allergies Allergy/AdvReac Type Severity Reaction Status Date / Time No Known Allergies Allergy Verified 11/06/16 17:19 PMH/Surg Hx/FS Hx/Imm Hx Endocrine/Hematology History: Reports: Hx Thyroid Disease Denies: Hx Anticoagulant Therapy, Hx Diabetes Cardiovascular History: Reports: Hx Angina, Hx Hypercholesterolemia, Hx Hypertension, Other Cardiovascular Problems/Disorders - ANGINA Denies: Hx Congestive Heart Failure, Hx Deep Vein Thrombosis, Hx Myocardial Infarction, Hx Pacemaker/ICD Respiratory History: Reports: Hx Chronic Obstructive Pulmonary Disease (COPD) Denies: Hx Asthma, Hx Lung Cancer, Hx Pneumonia, Hx Pulmonary Embolism GI History: Reports: Hx Gastroesophageal Reflux Disease - WELL CONTROLLED Denies: Hx Gall Bladder Disease, Hx Gastrointestinal Bleed, Hx Ulcer, Hx Urosepsis History: Reports: Hx Benign Prostatic Hyperplasia, Other Problems/ Disorders - indwelling piedra Denies: Hx Kidney Stones, Hx Renal Disease Sensory History: Reports: Hx Contacts or Glasses, Hx Hearing Aid - BILAT Opthamlomology History: Reports: Hx Contacts or Glasses Neurological History: Denies: Hx Dementia, Hx Migraine, Hx Seizures, Hx Transient Ischemic Attacks (TIA) Psychiatric History: Denies: Hx Anxiety, Hx Depression, Hx Schizophrenia, Hx Bipolar Disorder - Surgical History Surgery Procedure, Year, and Place: TUR2014 Hx Anesthesia Reactions: No Infectious Disease History: No Infectious Disease History: Denies: Hx Clostridium Difficile, Hx Hepatitis, Hx Human Immunodeficiency Virus (HIV), Hx of Known/Suspected MRSA, Hx Shingles, Hx Tuberculosis, Hx Known/ Suspected VRE, Hx Known/Suspected VRSA, History Other Infectious Disease, Traveled Outside the [place] in Last 30 Days - Family History Known Family History: Positive: Cardiac Disease Family History: no fhx of malignant hyperthermia or anesthesia reaction - Social History Alcohol Use: Occasionally Hx Substance Use: No Substance Use Type: Reports: None Hx Tobacco Use: Yes Smoking Status (MU): Former Smoker Type: Cigarettes Length of Time of Smoking/Using Tobacco: 40 years Have You Smoked in the Last Year: No Review of Systems Constitutional: Negative Eyes: Negative ENT: Negative Cardiovascular: Negative Respiratory: Negative Gastrointestinal: Negative Genitourinary: Negative Musculoskeletal: Other - Negative neck pain Positive: Other - pain in the back of the head Positive: Other - laceration posterior of the head Neurological: Other - Negative LOC, dizziness Psychological: Normal All Other Systems Reviewed And Are Negative: Yes Physical Exam - Summary Physical Exam Summary: Appearance: Well-appearing, no pain distress IF BMI > 30 = obese Skin: Warm, dry, abrasion Head/face: Nml head/face Eyes: Nml eyes ENT: Nml ENT Neck: Supple, non-tender Respiratory: CTA, breath sound present Cardiovascular: RRR Abdomen: Abd soft, non-tender, Bowel: Bowel sounds + Musculoskeletal: Small cephalic hematoma posterior right occiput Neurological: Nml neuro (unless it is a neuro Pt, then click the first 4) Psychiatric: Nml psychiatric, affect/mood appropriate Triage Information Reviewed: Yes Vital Signs On Initial Exam: Initial Vitals Temp Pulse Resp BP Pulse Ox 99 F 91 16 157/62 93 11/27/16 18:40 11/27/16 18:40 11/27/16 18:40 11/27/16 18:40 11/27/16 18:40 Vital Signs Reviewed: Yes - [place] Coma Scale Coma Scale Total: 15 Diagnostics - Vital Signs Vital Signs Temp Pulse Resp BP Pulse Ox 11/27/16 19:00 88 142/61 93 11/27/16 18:51 89 94 11/27/16 18:50 149/58 11/27/16 18:40 99 F 91 16 157/62 93 - Laboratory Lab Statement: Any lab studies that have been ordered have been reviewed, and results considered in the medical decision making process. - CT Brain CT CT Interpretation Completed By: Radiologist Head Injury Course/Dx Course Of Treatment: Mr. Antunez had a mechanical fall today and was sent in. He was only minorly symptomatic but because of his age a CT was obtained that was negative. - Diagnoses Provider Diagnoses: Head injury Discharge - Discharge Plan Condition: Stable Disposition: HOME Patient Education Materials: Head Injury (ED) Referrals: Nav Feng MD [Primary Care Provider] - (Follow up with PCP as needed.) The documentation as recorded by the Nadja foster Abhishek accurately reflects the service I personally performed and the decisions made by , Savage Liu MD.
[2016-11-27 20:43] VITALS: BP 150/58
== END 2016-11-27 20:43 | disposition home or self-care (01) ==
LOC: ED 18:34
DX: S09.90XA Unspecified injury of head, initial encounter (principal); W18.30XA Fall on same level, unspecified, initial encounter; Y93.9 Activity, unspecified; Y92.9 Unspecified place or not applicable; E07.9 Disorder of thyroid, unspecified; I20.9 Angina pectoris, unspecified; I10 Essential (primary) hypertension; E78.00 Pure hypercholesterolemia, unspecified; J44.9 Chronic obstructive pulmonary disease, unspecified; K21.9 Gastro-esophageal reflux disease without esophagitis; N40.0 Benign prostatic hyperplasia without lower urinary tract symptoms; Z87.891 Personal history of nicotine dependence
CPT/HCPCS: 70450; 99282

== ENCOUNTER 2017-02-19 14:17 | Emergency (ER) | payer MEDICAID, MEDICARE ==
--- NOTE | 2017-02-19 16:58 | ED ---
Complex/Multi-Sys Presentation - HPI Summary HPI Summary: 86 male presents to ED brought in by daughter without complaints at this time. Daughter states Dr Olivo suggested being checked out after patient having 2 falls. Patient does fall often due to his shuffling gait and mechanics however due to patient just recently being ill and having 2 falls it was suggested patient be checked out. Daughter states patient has dementia, had stomach bug 2 days ago that lasted 24 hours, it was going around patient fci. Patient was on an only fluid diet yesterday and just began eating solid foods again today. Patient states he feels fine and has no complaints. States he was a little run down from the stomach bug but otherwise feels fine. Denies fever/ chills, coughing, pain and recent vomiting. Daughter believes patient is just a little weak from having the stomach bug and not eating. Has been drinking fluids , however "he is not the best". Patient otherwise healthy. States the last fall was when trying to get up from bed and not using walker, fell on right side 2 days ago however is able to walk and bear weight without much discomfort. Did not hit head. - History Of Current Complaint Chief Complaint: EDGeneral Time Seen by Provider: 02/19/17 16:25 Hx Obtained From: Patient, Family/[employer] - daughter Severity Currently: None Location: Negative Aggravating Factor(s): n/a Alleviating Factor(s): n/a Associated Signs And Symptoms: Positive: Weakness - chronic, falling - Allergies/Home Medications Allergies/Adverse Reactions: Allergies Allergy/AdvReac Type Severity Reaction Status Date / Time No Known Allergies Allergy Verified 02/19/17 14:26 PMH/Surg Hx/FS Hx/Imm Hx Endocrine/Hematology History: Reports: Hx Thyroid Disease Denies: Hx Anticoagulant Therapy, Hx Diabetes Cardiovascular History: Reports: Hx Angina, Hx Hypercholesterolemia, Hx Hypertension, Other Cardiovascular Problems/Disorders - ANGINA Denies: Hx Congestive Heart Failure, Hx Deep Vein Thrombosis, Hx Myocardial Infarction, Hx Pacemaker/ICD Respiratory History: Reports: Hx Chronic Obstructive Pulmonary Disease (COPD) Denies: Hx Asthma, Hx Lung Cancer, Hx Pneumonia, Hx Pulmonary Embolism GI History: Reports: Hx Gastroesophageal Reflux Disease - WELL CONTROLLED Denies: Hx Gall Bladder Disease, Hx Gastrointestinal Bleed, Hx Ulcer, Hx Urosepsis History: Reports: Hx Benign Prostatic Hyperplasia, Other Problems/ Disorders - indwelling piedra Denies: Hx Kidney Stones, Hx Renal Disease Sensory History: Reports: Hx Contacts or Glasses, Hx Hearing Aid - BILAT Opthamlomology History: Reports: Hx Contacts or Glasses Neurological History: Denies: Hx Dementia, Hx Migraine, Hx Seizures, Hx Transient Ischemic Attacks (TIA) Psychiatric History: Denies: Hx Anxiety, Hx Depression, Hx Schizophrenia, Hx Bipolar Disorder - Surgical History Surgery Procedure, Year, and Place: [facility] 2014 Hx Anesthesia Reactions: No - Immunization History Date of Tetanus Vaccine: UTD Date of Influenza Vaccine: 11/2016 Immunizations Up to Date: Yes Infectious Disease History: No Infectious Disease History: Denies: Hx Clostridium Difficile, Hx Hepatitis, Hx Human Immunodeficiency Virus (HIV), Hx of Known/Suspected MRSA, Hx Shingles, Hx Tuberculosis, Hx Known/ Suspected VRE, Hx Known/Suspected VRSA, History Other Infectious Disease, Traveled Outside the [place] in Last 30 Days - Family History Known Family History: Positive: Cardiac Disease Family History: no fhx of malignant hyperthermia or anesthesia reaction - Social History Alcohol Use: Occasionally Hx Substance Use: No Substance Use Type: Reports: None Hx Tobacco Use: Yes Smoking Status (MU): Former Smoker Type: Cigarettes Length of Time of Smoking/Using Tobacco: 40 years Have You Smoked in the Last Year: No Review of Systems Constitutional: Negative Cardiovascular: Negative Respiratory: Negative Skin: Negative Positive: Weakness - chronic, "old age", falling All Other Systems Reviewed And Are Negative: Yes Physical Exam Triage Information Reviewed: Yes Vital Signs On Initial Exam: Initial Vitals Temp Pulse Resp BP Pulse Ox 98.2 F 50 16 136/66 97 02/19/17 14:22 02/19/17 14:22 02/19/17 14:22 02/19/17 14:22 02/19/17 14:22 Vital Signs Reviewed: Yes Completion Of Physical Exam Limited Due To: Dementia Appearance: Positive: Well-Appearing, No Pain Distress, Well-Nourished Skin: Positive: Warm, Skin Color Reflects Adequate Perfusion, Dry. Negative: Cyanosis @, Erythema @ Head/Face: Positive: Normal Head/Face Inspection. Negative: Scalp Eyes: Positive: Normal, EOMI, JANINE, Conjunctiva Clear ENT: Positive: Normal ENT inspection, Hearing grossly normal, Pharynx normal, TMs normal. Negative: Tonsillar swelling, Tonsillar exudate Neck: Positive: Supple, Nontender, No Lymphadenopathy Respiratory/Lung Sounds: Positive: Clear to Auscultation, Breath Sounds Present. Negative: Rales, Rhonchi Cardiovascular: Positive: Normal, RRR, Pulses are Symmetrical in both Upper and Lower Extremities. Negative: Murmur, Rub Abdomen Description: Positive: Nontender, Soft Bowel Sounds: Positive: Present Musculoskeletal: Positive: Normal, Strength/ROM Intact. Negative: Limited @, Interruption @, Abnormal @, Pain @, Edema Left, Edema Right Neurological: Positive: Normal, Sensory/Motor Intact, Alert, Oriented to Person Place, Time - x2, patient has dementia, CN Intact II-III, Reflexes Intact, NV Bundle Intact Distally, Normal Gait, Facial Symmetry, Speech Normal, Other - normal strength equal bilaterally Psychiatric: Positive: Normal - [place] Coma Scale Best Eye Response: 4 - Spontaneous Best Motor Response: 6 - Obeys Commands Best Verbal Response: 5 - Oriented Coma Scale Total: 15 Diagnostics - Vital Signs Vital Signs Temp Pulse Resp BP Pulse Ox 02/19/17 14:22 98.2 F 50 16 136/66 97 - Laboratory Lab Statement: Any lab studies that have been ordered have been reviewed, and results considered in the medical decision making process. Complex Multi-Symp Course/Dx Course Of Treatment: suggested obtaining basic labs and some fluids however daughter and patient refused and stated they don't feel it is necessary. They believe it is just from the recent illness, slight dehydration and not eating and hi mechanics of walking which is chronic. Does fall due to age and not using his walker. Normal vitals. Normal PE exam. Due to patient and daughter deferring any work up patient was discharged. Educated on worsening signs and symptoms. No concern for other etiology, probably due to mechanics and recent illness. No other complaints. Follow up with PCP. Aware of new or worsening symptoms and to return if develop. Patient and daughter agree and understand, and able to make their own decisions. - Diagnoses Differential Diagnoses/HQI/PQRI: Urinary Tract Infection, Other - falls, weakness, normal exam, dehydration Provider Diagnoses: Normal physical examination, Falls frequently, Weakness Discharge - Discharge Plan Condition: Stable Disposition: HOME Referrals: Nav Feng MD [Primary Care Provider] - Additional Instructions: Any new or worsening symptoms as we discussed please seek medical attention promptly. Follow up with PCP. Use walker and move slowly to avoid falling. Be sure to ask for some assistance when able.
[2017-02-19 17:20] VITALS: BP 133/74
== END 2017-02-19 17:10 | disposition home or self-care (01) ==
LOC: ED 14:17
DX: R53.1 Weakness (principal); Z87.891 Personal history of nicotine dependence
CPT/HCPCS: 99281

== ENCOUNTER 2017-02-28 10:26 | Emergency (ER) | payer MEDICARE ==
--- OUTSIDE RECORDS SUMMARY | 2017-02-28 10:36 | XMS REPORT ---
:1930 External Reference #:[id number] Author Organization [facility] Address [address] [place] [address] Phone [phone] Care Team Providers Name Role Phone Nav Feng MD Care Team Information Pan Devulcanizer Helper Unavailable Nav Feng MD Primary Care Physician Unavailable Payers Type Date Identification Numbers Payment Provider Subscriber Medicare Primary Policy Number: [id number] [place] PayID: [id number] [address] [place] [address] Medicaid Policy Number: [id number] Medicaid [place] Lisandro Antunez PayID: [id number] [address] [place] [address] Problems Date Description Provider Status Onset: 02/08/2011 Essential hypertension Nav Feng M.D. Active Onset: 02/08/2011 Pure hypercholesterolemia Nav Feng M.D. Active Onset: 02/08/2011 Hypothyroidism Nav Feng M.D. Active Onset: 06/01/2011 Dyspnea Nav Feng M.D. Active Onset: 06/22/2011 Chronic obstructive lung disease Nav Feng M.D. Active Onset: 11/13/2013 Urinary tract infectious disease Nav Feng M.D. Active Onset: 10/14/2014 Syncope and collapse Nav Feng M.D. Active Onset: 04/21/2015 Dementia Nav Feng M.D. Active Onset: 09/10/2015 Delirium of mixed origin Tyler Murrell M.D. Active Onset: 10/20/2015 Diarrhea Nav Feng M.D. Active Onset: 11/10/2015 Edema Nav Feng M.D. Active Onset: 11/10/2015 Urinary incontinence Nav Feng M.D. Active Onset: 08/02/2016 Anxiety state Nva Feng M.D. Active Social History Type Date Description Comments Living Situation Lives with son Cigarette Use Nonsmoker Smoking Nonsmoker Allergies, Adverse Reactions, Alerts Date Description Reaction Status Severity Comments 01/28/2011 NKDA active Medications Medication Date Status Form Strength Qnty SIG Indications Ordering Provider Toilet Seat 02/24 Active Misc For ease R29.6 Karla Katheryn Elevator of LEON Gorman transfer on and off Ventolin HFA 02/23 Active Aerosol 108(90Bas 18uni 2 puffs Nav Isaac e) ts every 4 Breiman, mcg/Act hours as M.D. needed Diphenhydramine 12/23 Active Capsules 25mg 180ca take 2 Lexii HCL ps capsules Delia, by mouth INFECTION CONTROL PREVENTIONIST every 8 hours as needed for aggitation maximum daily dose=6 capsules Citalopram 12/13 Active Tablets 20mg 30tab 1 tab by Nav Isaac Hydrobromide s mouth Breiman, every day M.D. B-12 11/04 Active Capsules 1000mcg 90cap 1 by mouth Nav Isaac s every day Keanu Feng Synthroid 09/05 Active Tablets 150mcg 30tab 1 tab by Nav Isaac s mouth Breiman, every day M.D. Miralax 09/05 Active Powder 527un give 17gm Nav Isaac 17GM/1Dose /2016 its Or 8.5 GM Breiman, in 7oz of M.D. water by mouth every day as Needed To Prevent Constipati on Aleve 07/20 Active Tablets 220mg 60tab 1po q12h Nav Isaac Laci s prn for Breiman, pain M.D. Colace 07/08 Active Capsules 100mg 60cap 1 cap by Nav Isaac s mouth Breiman, twice M.D. daily Oxygen Therapy 10/19 Active o2 2 l Nav Isaac nasal Breiman, canal at M.D. night Symbicort 10/01 Active Aerosol 160-4.5mc 10.2u inhale one Nav Isaac /2013 g/Act nits puff by Jung, mouth M.D. twice daily Simvastatin 11/20 Active Tablets 20mg 30tab take 1 Nav Isaac /2012 s tablet by Jung, mouth M.D. every day Spiriva 06/15 Active Capsules 18mcg 30cap inhale Nav Isaac Handihaler /2011 s contents Jung, of one cap M.D. orally once every day (by taking two separate inhalation s via handihaler device) Hydrochlorothiazi 04/13 Active Capsules 12.5mg 30cap 1 cap by Nav patterson /2006 s mouth Brejericho, every day M.D. Cardura 02/19 Active Tablets 4mg 30tab 1 tab by Nav Isaac /2004 s mouth at Jung, bedtime M.D. Amlodipine Active Tablets 5mg 30tab 1 tab by Nav Isaac Besylate / s mouth Jung, every day M.D. Acetaminophen Active Tablets 325mg 1 po q6h Unknown /0000 prn Penicillin V 12/13 Hx Tablets 500mg 14tab 1 by Nav Isaac Potassium /2016 s mouthbid Jung, - for M.D. 02/07 infection /2016 Azithromycin 11/17 Hx Tablets 250mg 6tabs take 2 J44.9 Lexii tablets by Delia, - mouth INFECTION CONTROL PREVENTIONIST 12/05 today take 1 tablet daily for next 4 days Triamcinolone 10/19 Hx Paste 0.1% 5gm use in Nav Isaac Acetonide /2016 mouth bid Jung, - times a M.D. Citalopram 10/18 Hx Tablets 10mg 30tab 1 Tab By Nav Isaac Hydrobromide /2016 s Mouth Jung, - Every Day M.D. 12/13 Sulfamethoxazole- 10/06 Hx Tablets 400-80mg 20tab Take 1 Karthikeyan F. Trimethoprim s tablet by Christina, - mouth M.D. 10/13 every hours for 10 days for infection Celexa 10/03 Hx Tablets 10mg 30tab 1 by mouth Nav Isaac s every day Jung - M.D. 10/18 Mupirocin Calcium 09/12 Hx Cream 2% 60gm apply bid S81.802A Lexii until Delia, - wounds INFECTION CONTROL PREVENTIONIST 12/05 heal Note 08/15 Hx only 1 Nav Isaac alchoholic Jung, - beverage a M.D. . /2016 nurses to hold. Cipro 08/12 Hx Tablets 250mg 10tab 1 by mouth Nav Isaac s twice a Jung, - day M.D. 09/12 EX-Lax 07/20 Hx Tablets 15mg 60tab 1 po prn Nav Isaac s for Jung, - constipati M.D. 08/02 Melatonin 07/08 Hx Capsules 3mg 90cap one at Nav Isaac s bedtime Jung, - M.D. 07/21 Shower Chair 07/08 Hx dx r26.81 R26.81 Nav Isaac /2016 lifetime Jung, - use M.D. 09/12 Walker With 07/08 Hx use as R26.81 Nav Isaac Wheels/ Brakes /2016 directed Jung, And Seat - Dx r26.81 M.D. 09/12 Zoloft 07/08 Hx Tablets 25mg 90tab take 1 Nav Poncho s tablet by Jung, - mouth one M.D. 07/21 time daily Doxazosin 07/08 Hx Tablets 4mg 90tab Take One Nav Isaac Mesylate s Tablet By Jung, - Mouth At M.D. 12/05 Bedtime Zoloft 07/05 Hx Tablets 25mg 30tab take 1 Nav Isaac s tablet by Jung, - mouth one M.D. 07/08 time daily Compression 06/28 Hx 15-20mm 2unit knee high R60.0 Nav Isaac Stockings /2016 HG s stockings Jung, - -wear as M.D. 09/12 often possible- dx: edema r60.0 Tinactin 04/11 Hx Powder 1% 216gm apply to B35.9 Sanam affected Rupinder, - feet at INFECTION CONTROL PREVENTIONIST 07/21 least times per day, up to 4 is ok as needed Nifedipine ER 12/01 Hx Tablets 60mg 1 by mouth Nav Isaac ER 24HR every day Timi Feng M.D. 07/08 Polymyxin B 12/01 Hx Solution 19648-9.1 10ml 4 drops H62.41 Tabitha Sulfate/Trimeth Unit/ML-% into right Preeti, rim Sulfate - ear 3-4 Afnp-C 12/06 x/day Aricept 11/09 Hx Tablets 5mg 30tab 1 by mouth Nav Isaac /2015 s every day Jung - for memory Keanu 07/08 Support Stockings 11/09 Hx 2unit medium Nav Isaac s compressio Jung - n knee Keanu 11/30 Colace 11/05 Hx Capsules 100mg 60cap 1 by mouth Nav Isaac /2015 s q.d Timi Feng M.D. 11/30 Lomotil 10/21 Hx Tablets 2.5-0.025 40tab 2 tabs R19.7 Lexii /2016 mg s four times Delia, - a day INFECTION CONTROL PREVENTIONIST 11/30 until diarrhea is controlled , may fill with generic Betamethasone 10/21 Hx Ointment 0.1% 30gm apply to R19.7 Lexii Val affected Delia, - area bid [facility] 11/30 Anusol-HC 10/19 Hx Cream 2.5% 30uni apply Nav Isaac ts twice a Jung - day M.Ned 11/30 Aspir-Low 09/09 Hx Tablets 81mg once daily Nav Isaac /2015 Timi Taylor M.D. 11/30 Vesicare 09/09 Hx Tablets 5mg 1 qd Tyler Okeefe /2015 Timi Murrell M.D. 09/09 Levothyroxine 04/23 Hx Tablets 150mcg 90tab Take One Nav Mejia s Tablet By Jung, - Mouth Once M.DSukumar 09/05 Aricept 04/20 Hx Tablets 5mg 30tab 1 by mouth Nav Isaac s every day Jung, - for memory M.D. 09/09 Nifedipine ER 04/02 Hx Tablets 60mg 90tab Take One Tyler T. ER 24HR s Tablet By Nyasia, - Mouth Once M.D. 11/09 Lasix 03/06 Hx Tablets 20mg 3tabs 1 by mouth Nav Isaac /2014 every day Jung, - for three M.D. Proair HFA 02/21 Hx Aerosol 108(90Bas 9unit inhale two Nav Isaac /2014 e) s puffs by Jung, - mcg/Act mouth M.D. 02/23 every hours as needed Flomax 11/14 Hx Capsules 0.4mg 30cap 1 by mouth Hang Rey, /2013 s every M.D. - night 12/12 Septra DS 11/13 Hx Tablets 800-160mg 14tab 1 by mouth Nav Isaac /2013 s twice a Jung, - day M.D. 10/14 Tudorza Pressair 10/01 Hx Aerosol 400mcg/Ac 2unit 1 puff bid Nav Isaac /2013 t Timi Benitez M.D. 10/01 Nifedipine ER 09/12 Hx Tablets 60mg 90tab Take One ER 24HR s Tablet By Delia, - Mouth INFECTION CONTROL PREVENTIONIST 04/02 Every Simvastatin 09/13 Hx Tablets 20mg 30tab 1 po qd Nav Isaac /2012 Timi Benitez M.D. 11/19 Dulera 05/15 Hx Aerosol 100-5mcg/ 1unit 1 puff bid Nav Isaac /2012 Act s Timi Feng M.D. 10/01 Aspirin 01/09 Hx Tablets 81mg 1 po qd [facility] Ambien 01/09 Hx Tablets 5mg 30tab 1 po qhs Nav Isaac /2011 s prn sleep Timi Feng M.D. 12/12 Albuterol 09/18 Hx Aerosol 90mcg/Act 1unit 2 puffs Nav Isaac /2011 s q4hrs prn Timi Feng M.D. 09/18 Proair HFA 09/18 Hx Aerosol 108(90Bas 1unit 2 puffs Nav Isaac /2011 e) mcg/ac s every 4 Timi Feng M.D. 05/15 needed cough Procardia XL 04/11 Hx Tablets 60mg 90tab 1 PO qd ER 24HR s Timi Lin INFECTION CONTROL PREVENTIONIST 09/12 Nasacort Aq 04/28 Hx Aerosol 55mcg/Act 1unit use 2 Nav Isaac /2009 s spays winnie.d Timi Feng M.D. 06/21 Claritin 03/03 Hx Capsules 10mg 30cap use 1 po Nav Isaac /2009 s jayeshd Timi Feng M.D. 06/21 Zithromax Z-Daniel 01/23 Hx Tablets 250mg 6tabs as Nav Isaac /2008 Timi Bob M.D. 03/03 Restoril 01/20 Hx Capsules 15mg 30cap 1 s Nav Isaac /2008 s prTimi Schwartz M.D. 05/31 Procardia XL 09/16 Hx Tablets 30mg 90tab 2 po qd Nav Isaac /2008 ER 24HR Timi Benitez M.D. 04/11 Synthroid 08/04 Hx Tablets 150mcg 90tab 1 by mouth Nav Isaac /2008 s every day Timi Feng M.D. 04/23 Procardia XL 05/26 Hx Tablets 60mg 100ta 1 po qd Nav Isaac /2005 bs Timi Feng M.D. 09/16 Augmentin 07/16 Hx Tablets 500mg 14tab 1 PO bid Nav Isaac /2004 Timi Benitez M.D. 02/25 Clarinex 07/13 Hx Tablets 5mg 20tab 1 PO qd Nav Isaac /2004 Timi Benitez M.D. 04/08 Cardura 02/19 Hx 4mg 90uni 1 po q.D Nav Isaac /2004 Timi Beach M.D. 09/11 Adalat cc 01/27 Hx 30mg 90uni 1 qd Nav Isaac /2003 Timi Beach M.D. 04/08 Combivent 05/05 Hx 1unit 2 puffs Nav Isaac /2003 s Timi Hardy M.D. 10/21 Lipitor 02/18 Hx Tablets 20mg 90tab 1 po qd Nav JSukumar Timi Benitez M.D. 11/20 Lescol-XL 04/10 Hx 80mg 100un 1 po qd Savage S. marie Bagley M.D. - 02/18 Lopressor 11/08 Hx 50mg 45uni / po qd Sanam Timi Baires M.D. 04/08 Lescol 03/31 Hx 40mg 90uni 1 PO qd Savage S. nick Bagley M.D. - 04/10 Synthroid 03/31 Hx 0.175mg 100un 1 po qd Nav J. Timi Singletary M.D. 08/04 Biaxin 12/05 Hx 250mg 20uni 1 PO bid ts Jayden, - Afnp-C 12/15 Proventil 12/05 Hx 1unit 2 Puffs s Q4H prn Jayden, - Cough/ Afnp-C 12/19 Darvocet N 100 03/29 Hx 0 100mg/65O 30uni 1 qid prn Savage Phelps With Apap ts Pain Keanu Bagley - 05/28 Physical Therapy 03/29 Hx Treatment Savage S. /2000 And Keanu Bagley - Evaluation 05/28 For Back Pain With Radiculopa thy Accular Eye gtts 04/07 Hx 1Bott Use as Savage S. /1999 le Directed Keanu Bagley - 06/05 Emycin 03/03 Hx 333mg 36uni 1 PO tid Savage SSukumar /1999 ts For 12 Keanu Bagley - Days 03/18 Keflex 01/11 Hx 250mg 28uni 1 PO qid Savage S. /1998 nick Bagley M.D. - 01/22 Lomotil 02/18 Hx 30uni 1-2 PO qid Savage SSukumar /1998 ts prn Keanu Bagley - 02/28 Imodium A-D 02/14 Hx 2mg 20uni 2 Tabs Tabitha ts Initially, Preeti, - Then 1 PO Afnp-C 02/19 After Unformed Stool; Max 8 Tabs/Day Hytrin 01/14 Hx 1mg 30uni 1 PO Q . ts Evening Keanu Bagley - 01/11 Aspirin 12/04 Hx 325mg qd . Keanu Bagley - 01/09 Synthroid 09/23 Hx .15mg 90uni qd . ts Keanu Bagley - 03/31 Lopressor 09/23 Hx 50mg 100un 1/2 PO qd Savage . its Keanu Bagley - 05/23 Lescol 09/23 Hx 3 20mg. 100un hs Savage S. its Keanu Bagley - 03/31 Procardia XL Hx 30 2 po qd Unknown /0000 - 05/26 Amlodipine Hx Tablets 5mg 90tab 1 by mouth Nav Poncho Besylate /0000 s every day Timi Feng M.D. 11/30 Miralax Hx Packet [id number] 36uni 17 grams Nav J. /0000 ts every day Timi Feng with large M.D. 09/05 water Melatonin Hx Capsules 5mg 30cap 1 tab Lexii /0000 s every day Delia, - at bedtime INFECTION CONTROL PREVENTIONIST 02/07 Cipro Hx Tablets 250mg 1 by mouth Unknown /0000 twice a - day 12/05 Medications Administered in Office Medication Date Status Form Strength Qnty SIG Indications Ordering Provider TB Intradermal Administered Injection Nav Feng M.D. TB Intradermal Administered Injection Nav Feng M.D. Immunizations CPT Code Status Date Vaccine Lot # [id number] Given 12/05/2016 High-Dose, Influenza Virus Vacccine-fluzone 65 [id number] and older 89477 Given 11/10/2015 High-Dose, Influenza Virus Vacccine-fluzone 65 [id number] and older 99211 Given 12/12/2014 High-Dose, Influenza Virus Vacccine-fluzone 65 [id number] and older 23208 Given 02/04/2014 Pneumococcal Conjugate Vacc-13 [id number] 28029 Given 02/04/2014 High-Dose, Influenza Virus Vacccine-fluzone 65 [id number] and older 95919 Given 11/20/2012 High-Dose, Influenza Virus Vacccine-fluzone 65 [id number] and older 32329 Given 01/10/2012 High-Dose, Influenza Virus Vacccine-fluzone 65 [id number] and older Q2038 Given 01/10/2011 Split Influenza Medicare: Fluzone [id number] 14232 Given 11/10/2009 DO Not Use Split Influenza Virus Vaccine [id number] 78037 Given 01/17/2009 DO Not Use Split Influenza Virus Vaccine [id number] 29388 Given 12/01/2007 DO Not Use Split Influenza Virus Vaccine [id number] 36453 Given 12/23/2006 DO Not Use Split Influenza Virus Vaccine [id number] 26744 Given 01/20/2006 DO Not Use Split Influenza Virus Vaccine [id number] 98187 Given 01/04/2005 DO Not Use Split Influenza Virus Vaccine 37670 Given 12/19/2001 DO Not Use Split Influenza Virus Vaccine 22622 Given 01/18/2001 Influenza Immunization 89429 Given 01/18/2001 DO Not Use Split Influenza Virus Vaccine 37956 Given 12/15/1999 Pneumococcal Immunization 72386 Given 12/15/1999 DO Not Use Split Influenza Virus Vaccine Vital Signs Date Vital Result Comment 02/24/2017 BP Systolic 146 mmHg BP Diastolic 58 mmHg Heart Rate 56 /min Body Temperature 97.7 F Respiratory Rate 15 /min Height 65 inches 5'5" Weight 172.50 lb BMI (Body Mass Index) 28.7 kg/m2 02/09/2017 BP Systolic 138 mmHg BP Diastolic 60 mmHg Heart Rate 80 /min Body Temperature 97.9 F Respiratory Rate 20 /min Height 65 inches 5'5" Weight 174.00 lb BMI (Body Mass Index) 29.0 kg/m2 02/07/2017 BP Systolic 138 mmHg BP Diastolic 60 mmHg Heart Rate 80 /min Body Temperature 97.9 F Respiratory Rate 20 /min Height 65 inches 5'5" Weight 174.00 lb BMI (Body Mass Index) 29.0 kg/m2 12/13/2016 BP Systolic 140 mmHg BP Diastolic 60 mmHg Heart Rate 72 /min Body Temperature 97.5 F Height 65 inches 5'5" Weight 175.00 lb BMI (Body Mass Index) 29.1 kg/m2 12/05/2016 BP Systolic 132 mmHg BP Diastolic 72 mmHg Heart Rate 72 /min Body Temperature 97.7 F Respiratory Rate 20 /min Height 65 inches 5'5" Weight 173.00 lb BMI (Body Mass Index) 28.8 kg/m2 11/17/2016 BP Systolic 142 mmHg BP Diastolic 74 mmHg Heart Rate 64 /min Body Temperature 98.4 F Respiratory Rate 20 /min Height 65 inches 5'5" Weight 175.00 lb BMI (Body Mass Index) 29.1 kg/m2 10/19/2016 BP Systolic 152 mmHg BP Diastolic 58 mmHg Heart Rate 72 /min Body Temperature 97.7 F Height 65 inches 5'5" Weight 175.00 lb BMI (Body Mass Index) 29.1 kg/m2 09/12/2016 BP Systolic 150 mmHg BP Diastolic 62 mmHg Heart Rate 68 /min Body Temperature 97.9 F Height 65 inches 5'5" Weight 177.00 lb BMI (Body Mass Index) 29.5 kg/m2 08/02/2016 BP Systolic 148 mmHg BP Diastolic 72 mmHg Heart Rate 72 /min Body Temperature 98.0 F Respiratory Rate 20 /min O2 % BldC Oximetry 92 % Height 65 inches 5'5" Weight 180.00 lb BMI (Body Mass Index) 30.0 kg/m2 07/05/2016 BP Systolic 166 mmHg BP Diastolic 68 mmHg Heart Rate 78 /min Body Temperature 97.9 F Respiratory Rate 20 /min O2 % BldC Oximetry 95 % Height 65 inches 5'5" Weight 188.00 lb BMI (Body Mass Index) 31.3 kg/m2 04/11/2016 BP Systolic 152 mmHg BP Diastolic 70 mmHg Heart Rate 78 /min Body Temperature 97.9 F Respiratory Rate 24 /min Height 65 inches 5'5" Weight 187.25 lb BMI (Body Mass Index) 31.2 kg/m2 12/02/2015 BP Systolic 142 mmHg BP Diastolic 62 mmHg Heart Rate 104 /min Body Temperature 97.7 F Respiratory Rate 20 /min Height 65 inches 5'5" Weight 171.25 lb BMI (Body Mass Index) 28.5 kg/m2 11/10/2015 BP Systolic 118 mmHg BP Diastolic 60 mmHg Heart Rate 76 /min Body Temperature 98.5 F Respiratory Rate 22 /min O2 % BldC Oximetry 95 % Height 65 inches 5'5" Weight 172.00 lb BMI (Body Mass Index) 28.6 kg/m2 10/22/2015 BP Systolic 120 mmHg BP Diastolic 70 mmHg Heart Rate 90 /min Body Temperature 98.1 F Height 65 inches 5'5" 10/20/2015 BP Systolic 124 mmHg BP Diastolic 70 mmHg Heart Rate 88 /min Body Temperature 98.9 F Respiratory Rate 22 /min O2 % BldC Oximetry 91 % Height 65 inches 5'5" Weight 170.00 lb BMI (Body Mass Index) 28.3 kg/m2 09/22/2015 BP Systolic 118 mmHg BP Diastolic 68 mmHg Heart Rate 70 /min Body Temperature 97.5 F Respiratory Rate 22 /min O2 % BldC Oximetry 92 % Height 65 inches 5'5" Weight 168.00 lb BMI (Body Mass Index) 28.0 kg/m2 09/10/2015 BP Systolic 118 mmHg BP Diastolic 80 mmHg Heart Rate 72 /min Body Temperature 98.4 F Respiratory Rate 20 /min O2 % BldC Oximetry 92 % Height 65 inches 5'5" Weight 168.00 lb BMI (Body Mass Index) 28.0 kg/m2 06/09/2015 BP Systolic 126 mmHg BP Diastolic 64 mmHg Heart Rate 79 /min Body Temperature 97.9 F Respiratory Rate 20 /min O2 % BldC Oximetry 94 % Height 65 inches 5'5" Weight 173.00 lb BMI (Body Mass Index) 28.8 kg/m2 04/21/2015 BP Systolic 138 mmHg BP Diastolic 76 mmHg Heart Rate 76 /min Body Temperature 97.7 F Respiratory Rate 18 /min Height 65 inches 5'5" Weight 172.00 lb BMI (Body Mass Index) 28.6 kg/m2 12/12/2014 BP Systolic 122 mmHg BP Diastolic 64 mmHg Heart Rate 62 /min Body Temperature 97.4 F Respiratory Rate 20 /min O2 % BldC Oximetry 94 % Height 65 inches 5'5" Weight 174.00 lb BMI (Body Mass Index) 29.0 kg/m2 10/14/2014 BP Systolic 120 mmHg BP Diastolic 54 mmHg Heart Rate 74 /min Body Temperature 98.6 F Respiratory Rate 18 /min Height 65 inches 5'5" Weight 172.00 lb BMI (Body Mass Index) 28.6 kg/m2 03/18/2014 BP Systolic 128 mmHg BP Diastolic 68 mmHg Heart Rate 84 /min Respiratory Rate 20 /min Height 65 inches 5'5" Weight 175.00 lb BMI (Body Mass Index) 29.1 kg/m2 02/04/2014 BP Systolic 144 mmHg BP Diastolic 68 mmHg Heart Rate 90 /min Body Temperature 97.2 F Respiratory Rate 26 /min Height 65 inches 5'5" Weight 174.25 lb BMI (Body Mass Index) 29.0 kg/m2 11/13/2013 BP Systolic 134 mmHg BP Diastolic 70 mmHg Heart Rate 72 /min Body Temperature 97.0 F Respiratory Rate 20 /min Height 65 inches 5'5" Weight 176.00 lb BMI (Body Mass Index) 29.3 kg/m2 10/01/2013 BP Systolic 134 mmHg BP Diastolic 72 mmHg Heart Rate 68 /min Body Temperature 97.1 F Respiratory Rate 22 /min O2 % BldC Oximetry 97 % Height 65 inches 5'5" Weight 174.00 lb BMI (Body Mass Index) 29.0 kg/m2 04/02/2013 BP Systolic 162 mmHg BP Diastolic 74 mmHg Heart Rate 66 /min Body Temperature 97.2 F Height 65 inches 5'5" Weight 172.12 lb BMI (Body Mass Index) 28.6 kg/m2 11/20/2012 BP Systolic 148 mmHg BP Diastolic 56 mmHg Heart Rate 72 /min Body Temperature 97.2 F Height 65 inches 5'5" Weight 172.50 lb BMI (Body Mass Index) 28.7 kg/m2 05/15/2012 BP Systolic 138 mmHg BP Diastolic 70 mmHg Heart Rate 80 /min Body Temperature 97.9 F Respiratory Rate 22 /min O2 % BldC Oximetry 94 % Height 65 inches 5'5" Weight 175.00 lb BMI (Body Mass Index) 29.1 kg/m2 01/10/2012 BP Systolic 176 mmHg BP Diastolic 70 mmHg Heart Rate 84 /min Body Temperature 97.8 F Height 65 inches 5'5" Weight 180.00 lb BMI (Body Mass Index) 30.0 kg/m2 09/19/2011 BP Systolic 148 mmHg BP Diastolic 80 mmHg Heart Rate 60 /min Height 65 inches 5'5" Weight 176.00 lb BMI (Body Mass Index) 29.3 kg/m2 06/22/2011 BP Systolic 140 mmHg BP Diastolic 60 mmHg Heart Rate 90 /min Height 65 inches 5'5" Weight 171.00 lb BMI (Body Mass Index) 28.5 kg/m2 06/01/2011 BP Systolic 142 mmHg BP Diastolic 72 mmHg Heart Rate 80 /min Body Temperature 97.9 F O2 % BldC Oximetry 94 % Height 65 inches 5'5" Weight 168.00 lb BMI (Body Mass Index) 28.0 kg/m2 01/28/2011 BP Systolic 134 mmHg BP Diastolic 60 mmHg Heart Rate 88 /min Height 65 inches 5'5" 08/24/2010 BP Systolic 140 mmHg BP Diastolic 88 mmHg Heart Rate 92 /min Height 65 inches 5'5" Weight 173.00 lb BMI (Body Mass Index) 28.8 kg/m2 03/30/2010 BP Systolic 126 mmHg BP Diastolic 72 mmHg Heart Rate 80 /min Height 65 inches 5'5" Weight 174.00 lb BMI (Body Mass Index) 29.0 kg/m2 11/10/2009 BP Systolic 140 mmHg BP Diastolic 60 mmHg Heart Rate 68 /min Height 65 inches 5'5" Weight 176.00 lb BMI (Body Mass Index) 29.3 kg/m2 08/04/2009 BP Systolic 132 mmHg BP Diastolic 64 mmHg Heart Rate 68 /min Height 65 inches 5'5" Weight 173.00 lb BMI (Body Mass Index) 28.8 kg/m2 04/28/2009 BP Systolic 160 mmHg BP Diastolic 60 mmHg Heart Rate 108 /min Height 65 inches 5'5" Weight 174.00 lb BMI (Body Mass Index) 29.0 kg/m2 03/03/2009 BP Systolic 160 mmHg BP Diastolic 70 mmHg Heart Rate 80 /min Height 65 inches 5'5" Weight 171.00 lb BMI (Body Mass Index) 28.5 kg/m2 01/20/2009 BP Systolic 158 mmHg BP Diastolic 60 mmHg Heart Rate 88 /min Body Temperature 98.7 F Height 65 inches 5'5" Weight 165.00 lb BMI (Body Mass Index) 27.5 kg/m2 07/30/2008 BP Systolic 144 mmHg BP Diastolic 64 mmHg Heart Rate 78 /min Body Temperature 98.3 F Height 65 inches 5'5" Weight 165.00 lb BMI (Body Mass Index) 27.5 kg/m2 09/03/2007 BP Systolic 134 mmHg BP Diastolic 60 mmHg Heart Rate 68 /min Height 65 inches 5'5" Weight 167.00 lb BMI (Body Mass Index) 27.8 kg/m2 11/14/2006 BP Systolic 122 mmHg BP Diastolic 50 mmHg Heart Rate 80 /min Body Temperature 98.4 F Height 65 inches 5'5" Weight 167.00 lb BMI (Body Mass Index) 27.8 kg/m2 08/14/2006 BP Systolic 128 mmHg BP Diastolic 58 mmHg Heart Rate 74 /min Height 65 inches 5'5" Weight 170.00 lb BMI (Body Mass Index) 28.3 kg/m2 05/15/2006 BP Systolic 132 mmHg BP Diastolic 60 mmHg Heart Rate 80 /min Height 65 inches 5'5" Weight 168.00 lb BMI (Body Mass Index) 28.0 kg/m2 04/13/2006 BP Systolic 160 mmHg BP Diastolic 64 mmHg Heart Rate 80 /min Height 65 inches 5'5" Weight 172.00 lb BMI (Body Mass Index) 28.6 kg/m2 12/05/2005 BP Systolic 152 mmHg BP Diastolic 72 mmHg Heart Rate 80 /min Height 65 inches 5'5" Weight 174.00 lb BMI (Body Mass Index) 29.0 kg/m2 08/05/2005 BP Systolic 140 mmHg BP Diastolic 62 mmHg Heart Rate 80 /min Height 65 inches 5'5" Weight 169.00 lb BMI (Body Mass Index) 28.1 kg/m2 05/26/2005 BP Systolic 146 mmHg BP Diastolic 66 mmHg Heart Rate 72 /min Height 65 inches 5'5" Weight 171.00 lb BMI (Body Mass Index) 28.5 kg/m2 04/08/2005 BP Systolic 130 mmHg BP Diastolic 76 mmHg Heart Rate 76 /min Height 65 inches 5'5" Weight 173.00 lb BMI (Body Mass Index) 28.8 kg/m2 02/25/2005 BP Systolic 120 mmHg BP Diastolic 74 mmHg Heart Rate 64 /min Body Temperature 97.8 F Height 65 inches 5'5" Weight 174.00 lb BMI (Body Mass Index) 29.0 kg/m2 07/16/2004 BP Systolic 112 mmHg BP Diastolic 74 mmHg Body Temperature 97.6 F Height 65 inches 5'5" Weight 176.00 lb BMI (Body Mass Index) 29.3 kg/m2 07/09/2004 BP Systolic 110 mmHg BP Diastolic 70 mmHg Heart Rate 68 /min Body Temperature 98.0 F Height 65 inches 5'5" Weight 176.00 lb BMI (Body Mass Index) 29.3 kg/m2 01/26/2004 BP Systolic 154 mmHg BP Diastolic 90 mmHg Heart Rate 88 /min Height 65 inches 5'5" Weight 172.00 lb BMI (Body Mass Index) 28.6 kg/m2 10/22/2003 BP Systolic 140 mmHg BP Diastolic 52 mmHg Heart Rate 76 /min Height 65 inches 5'5" Weight 168.00 lb BMI (Body Mass Index) 28.0 kg/m2 09/25/2003 BP Systolic 130 mmHg BP Diastolic 76 mmHg Heart Rate 60 /min Height 65 inches 5'5" Weight 172.00 lb BMI (Body Mass Index) 28.6 kg/m2 07/11/2003 BP Systolic 148 mmHg BP Diastolic 80 mmHg Heart Rate 60 /min Height 65 inches 5'5" Weight 172.00 lb BMI (Body Mass Index) 28.6 kg/m2 05/06/2003 BP Systolic 148 mmHg BP Diastolic 80 mmHg Heart Rate 56 /min Body Temperature 96.6 F O2 % BldC Oximetry 95 % Height 65 inches 5'5" Weight 173.00 lb BMI (Body Mass Index) 28.8 kg/m2 04/24/2003 BP Systolic 132 mmHg BP Diastolic 80 mmHg Body Temperature 97.7 F Height 65 inches 5'5" Weight 174.00 lb BMI (Body Mass Index) 29.0 kg/m2 02/18/2003 BP Systolic 144 mmHg BP Diastolic 80 mmHg Heart Rate 56 /min Height 65 inches 5'5" Weight 174.00 lb BMI (Body Mass Index) 29.0 kg/m2 01/14/2003 BP Systolic 148 mmHg BP Diastolic 80 mmHg Heart Rate 60 /min Body Temperature 96.6 F Height 65 inches 5'5" Weight 174.00 lb BMI (Body Mass Index) 29.0 kg/m2 04/10/2002 BP Systolic 144 mmHg BP Diastolic 80 mmHg Heart Rate 56 /min Height 65.5 inches 5'5.50" Weight 171.50 lb BMI (Body Mass Index) 28.6 kg/m2 12/19/2001 BP Systolic 136 mmHg BP Diastolic 78 mmHg Heart Rate 60 /min Height 65.5 inches 5'5.50" Weight 168.00 lb BMI (Body Mass Index) 28.0 kg/m2 09/12/2001 BP Systolic 156 mmHg BP Diastolic 80 mmHg Heart Rate 60 /min Height 65.5 inches 5'5.50" Weight 167.50 lb BMI (Body Mass Index) 27.9 kg/m2 05/23/2001 BP Systolic 140 mmHg BP Diastolic 70 mmHg Heart Rate 52 /min Irregular Body Temperature 97.7 F Height 65.5 inches 5'5.50" Weight 166.00 lb BMI (Body Mass Index) 27.6 kg/m2 03/09/2001 BP Systolic 150 mmHg BP Diastolic 88 mmHg Heart Rate 56 /min Height 67 inches 5'7" Weight 171.00 lb BMI (Body Mass Index) 26.8 kg/m2 12/05/2000 BP Systolic 148 mmHg LG Cuff BP Diastolic 80 mmHg LG Cuff Body Temperature 98.9 F Height 67 inches 5'7" Weight 168.00 lb BMI (Body Mass Index) 26.3 kg/m2 04/12/2000 BP Systolic 112 mmHg BP Diastolic 80 mmHg Heart Rate 60 /min Height 67 inches 5'7" Weight 171.00 lb BMI (Body Mass Index) 26.8 kg/m2 03/29/2000 BP Systolic 120 mmHg BP Diastolic 80 mmHg Heart Rate 64 /min Height 67 inches 5'7" Weight 171.00 lb BMI (Body Mass Index) 26.8 kg/m2 12/15/1999 BP Systolic 138 mmHg BP Diastolic 80 mmHg Heart Rate 80 /min Height 67 inches 5'7" Weight 170.00 lb BMI (Body Mass Index) 26.6 kg/m2 10/08/1999 BP Systolic 150 mmHg LA SM Cuff BP Diastolic 70 mmHg LA SM Cuff Heart Rate 72 /min Reg Height 67 inches 5'7" Weight 171.00 lb BMI (Body Mass Index) 26.8 kg/m2 03/31/1999 BP Systolic 150 mmHg LG Cuff BP Diastolic 70 mmHg LG Cuff Body Temperature 98.1 F Height 67 inches 5'7" Weight 172.00 lb BMI (Body Mass Index) 26.9 kg/m2 03/03/1999 BP Systolic 132 mmHg BP Diastolic 50 mmHg Body Temperature 97.5 F Height 67 inches 5'7" Weight 169.00 lb BMI (Body Mass Index) 26.5 kg/m2 01/11/1999 BP Systolic 152 mmHg BP Diastolic 90 mmHg Body Temperature 98.1 F Height 67 inches 5'7" Weight 169.00 lb BMI (Body Mass Index) 26.5 kg/m2 02/18/1998 BP Systolic 104 mmHg BP Diastolic 50 mmHg Body Temperature 98.2 F Weight 158.00 lb 4# loss 02/14/1998 BP Systolic 130 mmHg BP Diastolic 70 mmHg Body Temperature 97.6 F Weight 162.00 lb 01/01/1998 BP Systolic 140 mmHg Ra SM Cuff BP Diastolic 70 mmHg Ra SM Cuff Heart Rate 72 /min Reg Body Temperature 97.8 F Height 65.5 inches 5'5.50" Weight 164.00 lb 06/06/1997 BP Systolic 136 mmHg LA LG Cuff BP Diastolic 72 mmHg LA LG Cuff Height 67 inches 5'7" Weight 165.00 lb 12/04/1996 BP Systolic 132 mmHg BP Diastolic 70 mmHg Height 5.70 inches 0'5.70" Weight 160.00 lb 09/23/1996 BP Systolic 150 mmHg BP Diastolic 90 mmHg Body Temperature 97.5 F Height 5.70 inches 0'5.70" Weight 162.00 lb Results Test Date Test Result H/L Range Note Urinalysis Profile 12/19/2016 Urine Color Yellow Urine Appearance Clear Urine Specific [place] 1.013 1.010-1.030 Urine pH 6.0 5-9 Urine Urobilinogen Negative Negative Urine Ketones Negative Negative Urine Protein Negative Negative Urine Leukocytes Negative Negative Urine Blood 2+ Negative Urine Nitrite Negative Negative Urine Bilirubin Negative Negative Urine Glucose Negative Negative Urine White Blood Cell Absent Absent Urine Red Blood Cell 2+(6-10/hpf) Absent Urine Bacteria Absent Absent Laboratory test finding 12/19/2016 Blood Culture SEE RESULT BELOW 1 CBC Auto Diff 12/19/2016 White Blood Count 9.7 10^3/uL 3.5-10.8 Red Blood Count 4.18 10^6/uL 4.0-5.4 Hemoglobin 13.3 g/dL Low 14.0-18.0 Hematocrit 40 % Low 42-52 Mean Corpuscular Volume 95 fL High 80-94 Mean Corpuscular Hemoglobin 32 pg High 27-31 Mean Corpuscular HGB Conc 34 g/dL 31-36 Red Cell Distribution Width 15 % 10.5-15 Platelet Count 246 10^3/uL 150-450 Mean Platelet Volume 8 um3 7.4-10.4 Abs Neutrophils 8.3 10^3/uL High 1.5-7.7 Abs Lymphocytes 0.4 10^3/uL Low 1.0-4.8 Abs Monocytes 0.8 10^3/uL 0-0.8 Abs Eosinophils 0.1 10^3/uL 0-0.6 Abs Basophils 0 10^3/uL 0-0.2 Abs Nucleated RBC 0.01 10^3/uL Granulocyte % 85.4 % High 38-83 Lymphocyte % 4.3 % Low 25-47 Monocyte % 8.3 % 1-9 Eosinophil % 1.5 % 0-6 Basophil % 0.5 % 0-2 Nucleated Red Blood Cells % 0.1 Laboratory test finding 12/19/2016 Lactic Acid 0.7 mmol/L 0.5-2.0 2 Comp Metabolic Panel 12/19/2016 Sodium 136 mmol/L 133-145 Potassium 3.6 mmol/L 3.5-5.0 Chloride 100 mmol/L Low 101-111 Co2 Carbon Dioxide 29 mmol/L 22-32 Anion Gap 7 mmol/L 2-11 Glucose 113 mg/dL High 70-100 Blood Urea Nitrogen 20 mg/dL 6-24 Creatinine 0.95 mg/dL 0.67-1.17 BUN/Creatinine Ratio 21.1 High 8-20 Calcium 9.4 mg/dL 8.6-10.3 Total Protein 6.6 g/dL 6.4-8.9 Albumin 3.7 g/dL 3.2-5.2 Globulin 2.9 g/dL 2-4 Albumin/Globulin Ratio 1.3 1-3 Total Bilirubin 1.10 mg/dL High 0.2-1.0 Alkaline Phosphatase 86 U/L 34-104 Alt 11 U/L 7-52 Ast 17 U/L 13-39 Egfr Non- 75.0 >60 Egfr 96.4 >60 3 Laboratory test finding 12/19/2016 Magnesium 2.0 mg/dL 1.9-2.7 TSH (Thyroid Stim Horm) 0.29 mcIU/mL Low 0.34-5.60 Blood Culture SEE RESULT BELOW 4 Urinalysis Profile 11/11/2016 Urine Color Yellow 5 Urine Appearance Clear 5 Urine Specific [place] 1.015 1.010-1.030 5 Urine pH 6.0 5-9 5 Urine Urobilinogen Negative Negative 5 Urine Ketones Negative Negative 5 Urine Protein Negative Negative 5 Urine Leukocytes Negative Negative 5 Urine Blood Negative Negative 5 * * Negative 5, 6 Urine Nitrite Negative Negative 5 Urine Bilirubin Negative Negative 5 Urine Glucose Negative Negative 5 Laboratory test 11/11/2016 Urine Culture And SEE RESULT BELOW 5, 7 finding Sensitivities Urine Culture Routine 10/19/2016 Urine Culture, Routine Final report 8 , 9 Result 1 No growth 8, 10 Comprehensive Metabolic Prof 10/19/2016 Sodium 137 mEq/L 134-149 Potassium 3.8 mEq/L 3.6-5.5 Chloride 97 mEq/L 94-112 Carbon Dioxide 26 mEq/L 21-32 Glucose 87 mg/dL 70-105 BUN 17 mg/dL 6-26 Creatinine 0.8 mg/dL 0.6-1.4 BUN/Creat Ratio 21.3 CALC 8.0-36.0 Calcium 8.6 mg/dL 8.6-10.2 Total Protein 7.2 g/dL 6.4-8.3 Albumin 3.8 g/dL 3.8-5.5 Globulin 3.4 g/dL 2.0-4.8 A/G Ratio 1.1 CALC 0.6-2.3 Alk. Phosphatase 86 U/L 22-95 Alt (SGPT) 13 U/L 7-35 Ast (Sgot) 18 U/L 5-34 Total Bilirubin 0.5 mg/dL 0.2-1.3 GFR Non- >60 ml/min/1.73m^ >=60 GFR >60 ml/min/1.73m^ >=60 Complete Blood Count 10/19/2016 WBC 6.7 x10^3/UL 3.6-9.6 RBC 4.33 x10^6/UL 3.90-5.70 HGB 14.0 g/dL 12.1-17.2 HCT 41 % 36-50 MCV 94.0 fL 82.2-97.4 MCH 32.4 pg 27.6-33.3 MCHC 34.5 g/dL 33.0-35.5 RDW 14.2 % High 11.6-13.7 PLT 316 x10^3/UL 150-400 MPV 7.3 fL Low 7.4-10.4 Gran # 4.6 x10^3/UL 1.5-7.2 Lymph# 1.8 x10^3/UL 0.7-4.9 Brantley# 0.3 x10^3/UL 0.1-0.9 Gran % 66.9 % 42.2-75.2 Lymph % 27.2 % 20.5-51.1 Brantley% 5.9 % 1.7-9.3 Laboratory test finding 10/19/2016 Vitamin B-12 109 pg/mL Low 230-1050 Free T4 1.50 ng/dL 0.75-1.54 TSH 1.88 mIU/L 0.50-6.00 Laboratory test finding 08/24/2016 Urine Culture And SEE RESULT BELOW 11 Sensitivities Urinalysis Profile 08/24/2016 Urine Color Straw Urine Appearance Clear Urine Specific [place] 1.010 1.010-1.030 Urine pH 7.0 5-9 Urine Urobilinogen Negative Negative Urine Ketones Negative Negative Urine Protein Negative Negative Urine Leukocytes Trace Negative Urine Blood Negative Negative Urine Nitrite Negative Negative Urine Bilirubin Negative Negative Urine Glucose Negative Negative Urine White Blood Cell Trace(0-5/hpf) Absent Urine Red Blood Cell Absent Absent Urine Bacteria Absent Absent Urine Squamous Epithelial Cell Present Absent Laboratory test finding 08/24/2016 TSH (Thyroid Stim 0.23 mcIU/mL Low 0.34 -5.60 Horm) CKMB 08/24/2016 CKMB ng/mL 5.5 ng/mL 0.6-6.3 Laboratory test finding 08/24/2016 Magnesium 2.4 mg/dL 1.9-2.7 Lipase 12 U/L 11.0-82.0 Creatine Kinase(CK) 117 U/L 10-223 C Reactive Protein 13.53 mg/L High < 5.00 12 Troponin I 0.01 ng/mL <0.04 Comp Metabolic Panel 08/24/2016 Sodium 137 mmol/L 133-145 Potassium 3.7 mmol/L 3.5-5.0 Chloride 101 mmol/L 101-111 Co2 Carbon Dioxide 30 mmol/L 22-32 Anion Gap 6 mmol/L 2-11 Glucose 116 mg/dL High 70-100 Blood Urea Nitrogen 20 mg/dL 6-24 Creatinine 0.90 mg/dL 0.67-1.17 BUN/Creatinine Ratio 22.2 High 8-20 Calcium 9.4 mg/dL 8.6-10.3 Total Protein 6.8 g/dL 6.4-8.9 Albumin 3.9 g/dL 3.2-5.2 Globulin 2.9 g/dL 2-4 Albumin/Globulin Ratio 1.3 1-3 Total Bilirubin 0.60 mg/dL 0.2-1.0 Alkaline Phosphatase 75 U/L 34-104 Alt 12 U/L 7-52 Ast 16 U/L 13-39 Egfr Non- 79.8 >60 Egfr 102.7 >60 13 Laboratory test finding 08/24/2016 Partial Thrombo Time 31.8 seconds 26.0 -36.3 PTT Inr/Protime 08/24/2016 Inr 0.90 0.89-1.11 CBC Auto Diff 08/24/2016 White Blood Count 7.1 10^3/uL 3.5-10.8 Red Blood Count 4.35 10^6/uL 4.0-5.4 Hemoglobin 14.1 g/dL 14.0-18.0 Hematocrit 42 % 42-52 Mean Corpuscular Volume 97 fL High 80-94 Mean Corpuscular Hemoglobin 32 pg High 27-31 Mean Corpuscular HGB Conc 33 g/dL 31-36 Red Cell Distribution Width 14 % 10.5-15 Platelet Count 248 10^3/uL 150-450 Mean Platelet Volume 8 um3 7.4-10.4 Abs Neutrophils 4.5 10^3/uL 1.5-7.7 Abs Lymphocytes 1.7 10^3/uL 1.0-4.8 Abs Monocytes 0.6 10^3/uL 0-0.8 Abs Eosinophils 0.3 10^3/uL 0-0.6 Abs Basophils 0.1 10^3/uL 0-0.2 Abs Nucleated RBC 0.01 10^3/uL Granulocyte % 63.0 % 38-83 Lymphocyte % 24.3 % Low 25-47 Monocyte % 8.0 % 1-9 Eosinophil % 3.7 % 0-6 Basophil % 1.0 % 0-2 Nucleated Red Blood Cells % 0.1 Laboratory test 08/24/2016 Lactic Acid 0.8 mmol/L 0.5-2.0 14 finding Laboratory test 08/10/2016 Urine Culture And SEE RESULT 15, 16 finding Sensitivities BELOW Comprehensive 07/05/2016 Sodium 135 mEq/L 134-149 Metabolic Prof Potassium 4.1 mEq/L 3.6-5.5 Chloride 97 mEq/L 94-112 Carbon Dioxide 31 mEq/L 21-32 Glucose 131 mg/dL High 70-105 17 BUN 21 mg/dL 6-26 Creatinine 0.9 mg/dL 0.6-1.4 BUN/Creat Ratio 23.3 CALC 8.0-36.0 Calcium 9.5 mg/dL 8.6-10.2 Total Protein 6.5 g/dL 6.4-8.3 Albumin 4.1 g/dL 3.8-5.5 Globulin 2.4 g/dL 2.0-4.8 A/G Ratio 1.7 CALC 0.6-2.3 Alk. Phosphatase 88 U/L 22-95 Alt (SGPT) 13 U/L 7-35 Ast (Sgot) 19 U/L 5-34 Total Bilirubin 0.7 mg/dL 0.2-1.3 GFR Non- >60 ml/min/1.73m^ >=60 GFR >60 ml/min/1.73m^ >=60 Complete Blood Count 07/05/2016 WBC 7.1 x10^3/UL 3.6-9.6 RBC 4.20 x10^6/UL 3.90-5.70 HGB 13.9 g/dL 12.1-17.2 HCT 40 % 36-50 MCV 96.0 fL 82.2-97.4 MCH 33.2 pg 27.6-33.3 MCHC 34.6 g/dL 33.0-35.5 RDW 14.4 % High 11.6-13.7 PLT 284 x10^3/UL 150-400 MPV 6.9 fL Low 7.4-10.4 Gran # 5.4 x10^3/UL 1.5-7.2 Lymph# 1.4 x10^3/UL 0.7-4.9 Brantley# 0.3 x10^3/UL 0.1-0.9 Gran % 74.0 % 42.2-75.2 Lymph % 20.6 % 20.5-51.1 Brantley% 5.4 % 1.7-9.3 Laboratory test finding 10/24/2015 Urine Culture And SEE RESULT BELOW 18 Sensitivities Urinalysis Profile 10/24/2015 Urine Color Yellow Urine Appearance Cloudy Urine Specific [place] 1.015 1.010-1.030 Urine pH 6.0 5-9 Urine Urobilinogen Negative Negative Urine Ketones Trace Negative Urine Protein Negative Negative Urine Leukocytes 3+ Negative Urine Blood 2+ Negative Urine Nitrite Negative Negative Urine Bilirubin Negative Negative Urine Glucose Negative Negative Urine White Blood Cell 3+(>20/hpf) Absent Urine Red Blood Cell 1+(3-5/hpf) Absent Urine Bacteria Absent Absent Urine Squamous Epithelial Cell Present Absent Laboratory test finding 10/24/2015 Lactic Acid 1.0 mmol/L 0.5-2.0 19 CBC Auto Diff 10/24/2015 White Blood Count 10.3 10^3/uL 3.5-10.8 Red Blood Count 4.37 10^6/uL 4.0-5.4 Hemoglobin 14.2 g/dL 14.0-18.0 Hematocrit 42 % 42-52 Mean Corpuscular Volume 95 fL High 80-94 Mean Corpuscular Hemoglobin 33 pg High 27-31 Mean Corpuscular HGB Conc 34 g/dL 31-36 Red Cell Distribution Width 14 % 10.5-15 Platelet Count 259 10^3/uL 150-450 Mean Platelet Volume 9 um3 7.4-10.4 Abs Neutrophils 7.7 10^3/uL 1.5-7.7 Abs Lymphocytes 1.5 10^3/uL 1.0-4.8 Abs Monocytes 0.8 10^3/uL 0-0.8 Abs Eosinophils 0.1 10^3/uL 0-0.6 Abs Basophils 0.1 10^3/uL 0-0.2 Abs Nucleated RBC 0 10^3/uL Granulocyte % 74.8 % 38-83 Lymphocyte % 15.0 % Low 25-47 Monocyte % 8.2 % 1-9 Eosinophil % 1.4 % 0-6 Basophil % 0.6 % 0-2 Nucleated Red Blood Cells % 0 Comp Metabolic Panel 10/24/2015 Sodium 133 mmol/L 133-145 Potassium 3.4 mmol/L Low 3.5-5.0 Chloride 97 mmol/L Low 101-111 Co2 Carbon Dioxide 30 mmol/L 22-32 Anion Gap 6 mmol/L 2-11 Glucose 125 mg/dL High 70-100 Blood Urea Nitrogen 18 mg/dL 6-24 Creatinine 0.88 mg/dL 0.67-1.17 BUN/Creatinine Ratio 20.5 High 8-20 Calcium 9.3 mg/dL 8.6-10.3 Total Protein 6.7 g/dL 6.4-8.9 Albumin 3.9 g/dL 3.2-5.2 Globulin 2.8 g/dL 2-4 Albumin/Globulin Ratio 1.4 1-3 Total Bilirubin 0.70 mg/dL 0.2-1.0 Alkaline Phosphatase 78 U/L 34-104 Alt 16 U/L 7-52 Ast 21 U/L 13-39 Egfr Non- 82.1 >60 Egfr 105.6 >60 20 Laboratory test finding 10/24/2015 Amylase 30 U/L 29-103 Lipase 6 U/L Low 11.0-82.0 C Reactive Protein 71.48 mg/L High < 5.00 21 Troponin I 0.02 ng/mL <0.03 22 TSH (Thyroid Stim Horm) 0.74 mcIU/mL 0.34-5.60 Urine Culture Routine 10/08/2015 Urine Culture, Routine Final report Result 1 See Comment: Ua - Micro (Fma) 10/08/2015 Appearance CLEAR Color YELLOW Glucose, Urine (Fma/CMC/CTX) NEG Bilirubin NEG Ketones NEG SP Grav 1.020 Blood NEG PH 6.0 Protein NEG Urobil 0.2 Nitrite NEG Leukocytes ([facility]ma/CMC/[facility]rex) SMALL Hyaline - /Lpf Granular - /Lpf WBC ([facility]ma,[facility]rex) 3-5 RBC 0-1 Mucus - /Lpf Epith - /Lpf Bacteria RARE /Hpf Amorphous - /Lpf Crystals, Fluid (Fma/CMC/CTX) - Laboratory test finding 06/09/2015 TSH 1.21 mIU/L 0.50-6.00 Free T4 1.33 ng/dL 0.75-1.54 Comprehensive Metabolic Prof 06/09/2015 Sodium 142 mEq/L 134-149 Potassium 4.3 mEq/L 3.6-5.5 Chloride 101 mEq/L 94-112 Carbon Dioxide 27 mEq/L 21-32 Glucose 124 mg/dL High 70-105 26 BUN 23 mg/dL 6-26 Creatinine 0.9 mg/dL 0.6-1.4 BUN/Creat Ratio 25.6 CALC 8.0-36.0 Calcium 9.6 mg/dL 8.6-10.2 Total Protein 6.5 g/dL 6.4-8.3 Albumin 4.0 g/dL 3.8-5.5 Globulin 2.5 g/dL 2.0-4.8 A/G Ratio 1.6 CALC 0.6-2.3 Alk. Phosphatase 69 U/L 22-95 Alt (SGPT) 24 U/L 7-35 Ast (Sgot) 34 U/L 5-34 Total Bilirubin 0.4 mg/dL 0.2-1.3 GFR Non- >60 ml/min/1.73m^ >=60 GFR >60 ml/min/1.73m^ >=60 CBC Auto Diff 12/13/2014 White Blood Count 6.5 10^3/uL 4.8-10.8 Red Blood Count 4.54 10^6/uL 4.0-5.4 Hemoglobin 14.9 g/dL 14.0-18.0 Hematocrit 45 % 42-52 Mean Corpuscular Volume 99 fL High 80-94 Mean Corpuscular Hemoglobin 33 pg High 27-31 Mean Corpuscular HGB Conc 33 g/dL 31-36 Red Cell Distribution Width 14 % 10.5-15 Platelet Count 222 10^3/uL 150-450 Mean Platelet Volume 10 um3 7.4-10.4 Abs Neutrophils 3.4 10^3/uL 1.5-7.7 Abs Lymphocytes 2.3 10^3/uL 1.0-4.8 Abs Monocytes 0.5 10^3/uL 0-0.8 Abs Eosinophils 0.3 10^3/uL 0-0.6 Abs Basophils 0 10^3/uL 0-0.2 Abs Nucleated RBC 0.01 10^3/uL Granulocyte % 52.4 % 38-83 Lymphocyte % 35.3 % 25-47 Monocyte % 7.1 % 1-9 Eosinophil % 4.5 % 0-6 Basophil % 0.7 % 0-2 Nucleated Red Blood Cells % 0.1 Comp Metabolic Panel 12/13/2014 Sodium 138 mmol/L 133-145 Potassium 4.2 mmol/L 3.5-5.0 Chloride 103 mmol/L 101-111 Co2 Carbon Dioxide 28 mmol/L 22-32 Anion Gap 7 mmol/L 2-11 Glucose 98 mg/dL 70-100 Blood Urea Nitrogen 19 mg/dL 6-24 Creatinine 0.90 mg/dL 0.67-1.17 BUN/Creatinine Ratio 21.1 High 8-20 Calcium 9.2 mg/dL 8.6-10.3 Total Protein 6.0 g/dL Low 6.4-8.9 Albumin 3.9 g/dL 3.2-5.2 Globulin 2.1 g/dL 2-4 Albumin/Globulin Ratio 1.9 1-3 Total Bilirubin 0.70 mg/dL 0.2-1.0 Alkaline Phosphatase 68 U/L 34-104 Alt 13 U/L 7-52 Ast 18 U/L 13-39 Egfr Non- 80.2 >60 Egfr 103.1 >60 27 Lipid Profile (Trig/Chol/HDL) 12/13/2014 Triglycerides 114 mg/dL 28 Cholesterol 149 mg/dL 29 HDL Cholesterol 59.7 mg/dL 30 LDL Cholesterol 67 mg/dL 31 Urine Culture And 05/07/2014 Urine Culture (SEE NOTE) 32, 33 Sensitivities CBC Auto Diff 05/07/2014 White Blood Count 10.5 10^3/uL 4.8-10.8 32 Red Blood Count 4.49 10^6/uL 4.0-5.4 32 Hemoglobin 14.9 g/dL 14.0-18.0 32 Hematocrit 44 % 42-52 32 Mean Corpuscular Volume 97 fL High 80-94 32 Mean Corpuscular Hemoglobin 33 pg High 27-31 32 Mean Corpuscular HGB Conc 34 g/dL 31-36 32 Red Cell Distribution Width 14 % 10.5-15 32 Platelet Count 268 10^3/uL 150-450 32 Mean Platelet Volume 9 um3 7.4-10.4 32 Abs Neutrophils 7.4 10^3/uL 1.5-7.7 32 Abs Lymphocytes 1.9 10^3/uL 1.0-4.8 32 Abs Monocytes 0.9 10^3/uL High 0-0.8 32 Abs Eosinophils 0.2 10^3/uL 0-0.6 32 Abs Basophils 0.1 10^3/uL 0-0.2 32 Abs Nucleated RBC 0 10^3/uL 32 Granulocyte % 70.4 % 38-83 32 Lymphocyte % 18.3 % Low 25-47 32 Monocyte % 8.2 % 1-9 32 Eosinophil % 2.3 % 0-6 32 Basophil % 0.8 % 0-2 32 Nucleated Red Blood Cells % 0 32 Inr/Protime 05/07/2014 Inr 0.92 0.78-1.07 32 Laboratory test 05/07/2014 Activated Partial 32.6 seconds 26.0-36.3 32, 34 finding Thrombo Time Basic Metabolic Panel 05/07/2014 Sodium 134 mmol/L 133-145 32 Potassium 3.7 mmol/L 3.5-5.0 32 Chloride 100 mmol/L Low 101-111 32 Co2 Carbon Dioxide 29 mmol/L 22-32 32 Anion Gap 5 mmol/L 2-11 32 Glucose 101 mg/dL High 70-100 32 Blood Urea Nitrogen 19 mg/dL 6-24 32 Creatinine 0.87 mg/dL 0.67-1.17 32 BUN/Creatinine Ratio 21.8 High 8-20 32 Calcium 9.5 mg/dL 8.6-10.3 32 Egfr Non- 83.6 >60 32 Egfr 107.5 >60 32, 35 Laboratory test finding 03/04/2014 Troponin I 0.03 ng/mL High <0.03 36 CBC Auto Diff 03/04/2014 White Blood Count 12.2 10^3/uL High 4.8-10.8 Red Blood Count 4.62 10^6/uL 4.0-5.4 Hemoglobin 15.0 g/dL 14.0-18.0 Hematocrit 45 % 42-52 Mean Corpuscular Volume 98 fL High 80-94 Mean Corpuscular Hemoglobin 33 pg High 27-31 Mean Corpuscular HGB Conc 33 g/dL 31-36 Red Cell Distribution Width 14 % 10.5-15 Platelet Count 198 10^3/uL 150-450 Mean Platelet Volume 10 um3 7.4-10.4 Abs Neutrophils 11.2 10^3/uL High 1.5-7.7 Abs Lymphocytes 0.3 10^3/uL Low 1.0-4.8 Abs Monocytes 0.6 10^3/uL 0-0.8 Abs Eosinophils 0 10^3/uL 0-0.6 Abs Basophils 0.1 10^3/uL 0-0.2 Abs Nucleated RBC 0 10^3/uL Granulocyte % 92.0 % High 38-83 Lymphocyte % 2.7 % Low 25-47 Monocyte % 4.7 % 1-9 Eosinophil % 0.2 % 0-6 Basophil % 0.4 % 0-2 Nucleated Red Blood Cells % 0 Inr/Protime 03/04/2014 Inr 0.91 0.85-1.06 Comp Metabolic Panel 03/04/2014 Sodium 137 mmol/L 133-145 Potassium 3.6 mmol/L 3.5-5.0 Chloride 103 mmol/L 101-111 Co2 Carbon Dioxide 27 mmol/L 22-32 Anion Gap 7 mmol/L 2-11 Glucose 130 mg/dL High 70-100 Blood Urea Nitrogen 33 mg/dL High 6-24 Creatinine 1.04 mg/dL 0.67-1.17 BUN/Creatinine Ratio 31.7 High 8-20 Calcium 8.9 mg/dL 8.6-10.3 Total Protein 6.2 g/dL Low 6.4-8.9 Albumin 3.8 g/dL 3.2-5.2 Globulin 2.4 g/dL 2-4 Albumin/Globulin Ratio 1.6 1-3 Total Bilirubin 0.70 mg/dL 0.2-1.0 Alkaline Phosphatase 65 U/L 34-104 Alt 16 U/L 7-52 Ast 18 U/L 13-39 Egfr Non- 68.0 >60 Egfr 87.5 >60 37 Laboratory test finding 03/04/2014 Troponin I 0.03 ng/mL High <0.03 38 Lactic Acid 2.5 mmol/L High 0.5-2.2 39 B Type Natriuretic Peptide 141 pg/mL 40 Ua - Micro (a) 11/13/2013 Appearance CLEAR Color YELLOW Glucose, Urine (a/CMC/CTX) NEG Bilirubin NEG Ketones NEG SP Grav 1.015 Blood TRACE-INTACT PH 7.5 Protein NEG Urobil 0.2 Nitrite NEG Leukocytes (a/CMC/[facility]rex) SMALL Hyaline - /Lpf Granular - /Lpf WBC ([facility]) 6-8 RBC 3-4 Mucus - /Lpf Epith RARE /Lpf Bacteria TRACE /Hpf Amorphous - /Lpf Crystals, Fluid (a/CMC/CTX) - Z#Comments - Laboratory test finding 11/13/2013 Urine Culture NEGATIVE ([facility] [place]) Laboratory test finding 09/18/2013 TSH 2.91 mIU/L 0.50-6.00 Comprehensive Metabolic 04/02/2013 Sodium 142 mEq/L 134-149 Prof Potassium 4.1 mEq/L 3.6-5.5 Chloride 99 mEq/L 94-112 Carbon Dioxide 28 mEq/L 21-32 Glucose 120 mg/dL High 70-105 BUN 25 mg/dL 6-26 Creatinine 1.0 mg/dL 0.6-1.4 BUN/Creat Ratio 25.0 CALC 8.0-36.0 Calcium 9.8 mg/dL 8.6-10.2 Total Protein 7.0 g/dL 6.3-8.1 Albumin 4.6 g/dL 3.8-5.5 Globulin 2.4 g/dL 2.0-4.8 A/G Ratio 1.9 CALC 0.6-2.3 Alk. Phosphatase 75 U/L 22-95 Alt (SGPT) 23 U/L 10-40 Ast (Sgot) 29 U/L 5-34 Total Bilirubin 0.6 mg/dL 0.2-1.3 Lipid Profile 04/02/2013 Cholesterol 160 mg/dL 120-200 Triglycerides 85 mg/dL 30-200 HDL Cholesterol 68 mg/dL 30-70 LDL (Calculated) 75 CALC 0-129 VLDL Cholesterol 17 mg/dL 0-50 HDL Risk Factor 2.4 CALC 0.0-4.4 Laboratory test finding 04/02/2013 TSH 10.42 mIU/L High 0.50-6.00 41 Free T4 1.25 ng/dL 0.75-1.54 Lipid Profile 01/10/2012 Cholesterol 188 mg/dL 120-200 HDL 60 mg/dL 30-70 Triglycerides 187 mg/dL 30-200 HDL Risk Factor 3.1 CALC 0.0-4.4 LDL (Calculated) 90 CALC 0-129 VLDL (Calculated) 37 mg/dL 0-50 Laboratory test finding 01/10/2012 TSH 6.93 mIU/L High 0.50-6.00 42 Free T4 1.05 ng/dL 0.75-1.54 Basic Metabolic Profile 06/01/2011 BUN 23 mg/dL 6-26 Calcium 10.0 mg/dL 8.6-10.2 Chloride 100 mEq/L 94-112 Creatinine 1.1 mg/dL 0.6-1.4 Carbon Dioxide 30 mEq/L 21-32 Glucose 126 mg/dL High 70-105 Sodium 141 mEq/L 134-149 Potassium 3.8 mEq/L 3.6-5.5 BUN/Creat Ratio 21.0 Calc 8.0-36.0 Laboratory test finding 06/01/2011 TSH 7.51 mIU/L High 0.50-6.00 43 Laboratory test finding 06/01/2011 Brain Natural Peptide 84.2 pg/mL < 100 CBC Electronic (Fma) 06/01/2011 WBC 7.6 3.6-9.6 RBC 4.83 3.90-5.70 Hemoglobin (Fma/CMC/CTX) 16.3 g/dL 12.1 - 17.2 Hematocrit (Fma/CMC/CTX) 46.8 % 36.1 - 50.3 Platelets 243 10^3/ul 150-400 Lymph% 28.7 20.5-51.1 Mixed% 6.3 Neutrophils % 65.0 Mean Corpuscular Vol 96.9 82.2-97.4 Mean Corpuscular Hemoglobin 33.7 High 27.6-33.3 Mean Corpuscular Hemo Concen 34.8 32.0-36.0 RDW 13.7 11.6-13.7 Mean Platelet Volume 11.0 6.5-11.0 Comprehensive Metabolic Prof 08/24/2010 Albumin 4.6 g/dL 3.8-5.5 Alk. Phos. 98 U/L High 22-95 44 Alt (SGPT) 25 U/L 10-40 Ast (Sgot) 27 U/L 5-34 BUN 25 mg/dL 6-26 Calcium 9.3 mg/dL 8.6-10.2 Chloride 106 mEq/L 94-112 Creatinine 1.2 mg/dL 0.6-1.4 Carbon Dioxide 26 mEq/L 21-32 Glucose 115 mg/dL High 70-105 45 Sodium 141 mEq/L 134-149 Total Bilirubin 0.7 mg/dL 0.2-1.3 Total Protein 7.1 g/dL 6.3-8.1 Potassium 4.0 mEq/L 3.6-5.5 Globulin 2.5 g/dL 2.0-4.8 A/G Ratio 1.8 Calc 0.6-2.2 BUN/Creat Ratio 21.4 Calc 8.0-36.0 Lipid Profile 08/24/2010 Cholesterol 179 mg/dL 120-200 HDL 69 mg/dL 30-70 Triglycerides 94 mg/dL 30-200 HDL Risk Factor 2.6 CALC 0.0-4.0 LDL (Calculated) 91 CALC 0-129 VLDL (Calculated) 19 mg/dL 0-50 Laboratory test finding 08/24/2010 TSH 2.88 mIU/L 0.50-6.00 Free T4 1.17 ng/dL 0.75-1.54 Comprehensive Metabolic Prof 08/04/2009 Albumin 4.6 g/dL 3.8-5.5 Alk. Phos. 81 U/L 22- Alt (SGPT) 19 U/L 10-40 Ast (Sgot) 22 U/L 5-34 BUN 18 mg/dL 6-26 Calcium 9.9 mg/dL 8.6-10.2 Chloride 97 mEq/L 94-112 Creatinine 1.0 mg/dL 0.6-1.4 Carbon Dioxide 27 mEq/L 21-32 Glucose 114 mg/dL High 70-105 46 Sodium 135 mEq/L 134-149 Total Bilirubin 0.9 mg/dL 0.2-1.3 Total Protein 7.1 g/dL 6.3-8.1 Potassium 4.0 mEq/L 3.6-5.5 Globulin 2.5 g/dL 2.0-4.8 A/G Ratio 1.9 Calc 0.6-2.2 BUN/Creat Ratio 19.1 Calc 8.0-36.0 Lipid Profile 08/04/2009 Cholesterol 188 mg/dL 120-200 HDL 67 mg/dL 30-70 Triglycerides 118 mg/dL 30-200 HDL Risk Factor 2.8 CALC Low 4.2-7.0 LDL (Calculated) 97 CALC 0-129 VLDL (Calculated) 24 mg/dL 0-50 Laboratory test finding 08/04/2009 Free T4 1.66 ng/dL High 0.75-1.54 47 TSH 1.29 mIU/L 0.50-6.00 Comprehensive Metabolic Prof 07/30/2008 Albumin 4.4 g/dL 3.8-5.5 48 Alk. Phos. 92 U/L - 48 Alt (SGPT) 20 U/L 10-40 48 Ast (Sgot) 23 U/L 5-34 48 BUN 18 mg/dL 6-26 48 Calcium 10.1 mg/dL 8.6-10.2 48 Chloride 100 mEq/L 94-112 48 Creatinine 1.0 mg/dL 0.6-1.4 48 Carbon Dioxide 30 mEq/L 21-32 48 Glucose 121 mg/dL High 70-105 48 Sodium 138 mEq/L 134-149 48 Total Bilirubin 0.8 mg/dL 0.2-1.3 48 Total Protein 6.9 g/dL 6.3-8.1 48 Potassium 4.2 mEq/L 3.6-5.5 48 Globulin 2.5 g/dL 2.0-4.8 48 A/G Ratio 1.7 Calc 0.6-2.2 48 BUN/Creat Ratio 17.6 Calc 8.0-36.0 48 Lipid Profile 07/30/2008 Cholesterol 189 mg/dL 120-200 48 HDL 62 mg/dL 30-70 48 Triglycerides 167 mg/dL 30-200 48 HDL Risk Factor 3.1 CALC Low 4.2-7.0 48 LDL (Calculated) 94 CALC 0-129 48 VLDL (Calculated) 33 mg/dL 0-50 48 Complete Blood Count 07/30/2008 WBC 7.4 x10^3/uL 3.6-9.6 48 Gran# 4.7 x10^3/uL 1.5-7.2 48 Gran% 63.7 % 42.2-75.2 48 HCT 46 % 36-50 48 HGB 15.8 g/dL 12.1-17.2 48 Lymph# 2.2 x10^3/uL 0.7-4.9 48 Lymph% 30.4 % 20.5-51.1 48 MCH 32.5 pg 27.6-33.3 48 MCV 93.6 fL 82.2-97.4 48 MCHC 34.7 g/dL 33.0-35.5 48 Mo# 0.4 x10^3/uL 0.1-0.9 48 Mo% 5.9 % 1.7-9.3 48 MPV 8.7 fL 7.4-10.4 48 PLT 272 x10^3/uL 150-400 48 RBC 4.86 x10^6/uL 3.90-5.70 48 RDW 12.9 % 11.6-13.7 48 Laboratory test finding 07/30/2008 TSH 0.19 mIU/L Low 0.50-6.00 48 Free T4 1.85 ng/dL High 0.75-1.54 48 PSA 0.40 ng/mL 0.00-4.00 48 Comprehensive Metabolic Prof 09/10/2007 Albumin 4.2 g/dL 3.8-5.5 48 Alk. Phos. 81 U/L 22-95 48 Alt (SGPT) 17 U/L 10-40 48 Ast (Sgot) 20 U/L 5-34 48 BUN 22 mg/dL 6-26 48 Calcium 10.0 mg/dL 8.6-10.2 48 Chloride 102 mEq/L 94-112 48 Creatinine 1.3 mg/dL 0.6-1.4 48 Carbon Dioxide 23 mEq/L 21-32 48 Glucose 118 mg/dL High 70-105 48 Sodium 138 mEq/L 134-149 48 Total Bilirubin 0.7 mg/dL 0.2-1.3 48 Total Protein 6.5 g/dL 6.3-8.1 48 Potassium 3.6 mEq/L 3.6-5.5 48 Globulin 2.3 g/dL 2.0-4.8 48 A/G Ratio 1.8 Calc 0.6-2.2 48 BUN/Creat Ratio 17.5 Calc 8.0-36.0 48 Lipid Profile 09/10/2007 Cholesterol 177 mg/dL 120-200 48 HDL 60 mg/dL 30-70 48 Triglycerides 115 mg/dL 30-200 48 HDL Risk Factor 2.9 CALC Low 4.2-7.0 48 LDL (Calculated) 94 CALC 0-129 48 VLDL (Calculated) 23 mg/dL 0-50 48 Laboratory test finding 09/10/2007 TSH 0.17 mIU/L Low 0.50-6.00 48 Free T4 1.64 ng/dL High 0.75-1.54 48 PSA 0.50 ng/mL 0.00-4.00 48 Comp Metabolic-ALL Lab 05/15/2006 Glucose, Serum 109 mg/dL High 70-105 Compani (Fma/CMC/CTX) BUN (Fma/CMC/Centrex) 20 mg/dL 6-26 Creatinine (Fma/CMC/CTX) 1.1 mg/dL 0.6-1.4 Sodium 139 134-149 Potassium 3.9 3.6-5.5 Chloride 98 mEq/L 94-112 Co2 27 21-32 Albumin (Fma/CMCC/Centrex) 4.0 3.8-5.5 Total Protein 7.0 g/dL 6.3-8.1 Calcium (Fma/CMC/Centrex) 9.8 mg/dL 8.6-10.2 Alkaline Phosphatase (F/C/CTX) 93 U/L 30-110 Ast (Sgot) (Fma/CMC/Centrex) 22 U/mL 5-34 Alt (SGPT) (CMC/Centrex/FF) 18 10-40 Bilirubin, Total 1.0 mg/dL 0.2-1.3 #GFR, Calculated (CTX) - Lipid Panel-ALL Lab 05/15/2006 Cholesterol (Fma/CMC/Centrex) 192 mg/dL 120-200 Companies HDL-Chol 52 mg/dL 30-85 Triglyceride 149 mg/dL 30-200 LDL/HDL Chol. Ratio (F/C/CTX) - Chol./HDL Ratio (Fma/CMC/CTX) - Low 30-85 LDL, Calculated (Centrex) 110 mg/dL 0-129 HDL Risk Factor (Fma) 3.7 CALC Low 4.2-7.0 Laboratory test finding 05/15/2006 TSH (a/CMC/Centrex) 0.71 uIU/ml 0.5- 6.0 Free T4 (a/CMC/Centrex) 1.36 ng/dL 0.75-1.54 PSA (ALL Lab Comp) 0.78 0.0-4.0 Lipid Profile([facility]) Male 08/01/2005 Cholesterol 146 mg/dL 120-200 (a/CMC/Centrex) Triglyceride 91 mg/dL 30-200 HDL Cholesterol (Fma) Male 51 mg/dL 30-70 LDL, Calculated (a/CMC) 77 CALC 0-129 LDL Direct (/CMC/Centrex) - mg/dL 0-130 VLDL 18 0-50 HDL Risk Factor (Fma) 2.9 CALC Low 4.2-7.0 Free T4/TSH 04/08/2005 TSH ([facility]/CMC/[facility]rex) 0.76 uIU/ml 0.5-6.0 (Fma/CMC/Centrex) Free T4 (a/CMC/Centrex) 1.79 ng/dL High 0.75-1.54 49 CBC Electronic (a) 03/02/2005 WBC 7.3 3.6-9.6 Lymphocytes 31.9 % 20.5 - 51.1 Monocytes 8.8 % 1.7-9.3 Granulocytes 59.3 % 42.2 - 75.2 Lymphocytes 2.3 10^3/uL 0.7 - 4.9 Monocytes 0.6 10^3/uL 0.1 - 0.9 Granulocytes 4.3 10^3/uL 1.5 - 7.2 RBC 4.63 3.90-5.70 Hemoglobin (Fma/CMC/CTX) 15.3 g/dL 12.1 - 17.2 Hematocrit (Fma/CMC/CTX) 44.6 % 36.1 - 50.3 Mean Corpuscular Vol 96.4 82.2-97.4 Mean Corpuscular Hemaglobin 33.1 27.6-33.3 Mean Corpuscular Hemo Concen 34.4 33.0-36.0 RDW 13.1 11.6-13.7 Platelets 279. 10^3/ul 150-400 Mean Platelet Volume 8.8 7.4-10.4 Basic Metabolic (a) 03/02/2005 Glucose, Serum (Fma/CMC/CTX) 94 mg/dL 70 -105 BUN (Fma/CMC/Centrex) 26 mg/dL 6-26 Creatinine (a/CMC/CTX) 1.2 mg/dL 0.6-1.4 BUN/Creatinin Ratio 21.4 8.0-36 Sodium 144 134-149 Potassium 4.4 3.6-5.5 Chloride 102 mEq/L 94-112 Co2 30 21-32 Calcium (a/CMC/Centrex) 10.0 mg/dL 8.6-10.2 Laboratory test 02/25/2005 Brain Mague. Peptide(BNP) 43.7 pg/mL 0.0-100.0 50, 51 finding Lipid Profile([facility]) 01/26/2004 Cholesterol 192 mg/dL 120-200 Male Triglyceride 180 mg/dL 30-200 HDL Cholesterol ([facility]) Male 66 mg/dL 30-70 LDL, Calculated ([facility]) 90 CALC 0-129 LDL, Direct - mg/dL 0-130 VLDL 36 0-50 HDL Risk Factor ([facility]) 2.9 CALC Low 4.2-7.0 Liver Function ([facility]) 01/26/2004 Total Protein 7.2 g/dL 6.3-8.1 Albumin ([facility]/CMCC/Centrex) 4.5 3.8-5.5 A/G Ratio (a/CMC/Centrex) 1.7 0.6-2.2 Globulin 2.7 2.0-4.8 Alkaline Phosphatase (F/C/CTX) 95 U/L 30-110 Alt (SGPT) 20 7-35 Ast (Sgot) (Fma/CMC/Centrex) 19 U/mL 5-34 Bilirubin, Total 0.8 mg/dL 0.2-1.3 Bilirubin, Direct 0.3 mg/dL 0-0.6 Bilirubin, Indirect 0.55 ml/dl 0.10-1.0 Ua - Micro ([facility]) 01/26/2004 Appearance CLEAR Color LT YELLOW Glucose NEG Bilirubin NEG Ketones NEG SP Grav 1.020 Blood NEG PH 6.0 Protein NEG Urobil 0.2 Nitrite NEG Leukocytes NEG Hyaline - /Lpf Granular - /Lpf WBC'S 4-6 RBC'S - Mucus - /Lpf Epith RARE Bacteria 1+ Amorphous - /Lpf Crystals - /Lpf Comments - Laboratory test finding 01/26/2004 PSA 0.53 0.0-4.0 TSH ([facility]) 0.72 uIU/ml 0.5-6.0 Free T4/TSH 10/22/2003 TSH ([facility]) 0.31 uIU/ml Low 0.5-6.0 ([facility]) Free T4 1.75 ng/dL High 0.75-1.54 Lipid Profile ([facility]) 07/03/2003 Cholesterol 177 mg/dL 120-200 Triglyceride 126 mg/dL 30-200 HDL-Chol 56 30-70 LDL, Calculated ([facility]) 96 CALC 0-129 VLDL 25 0-50 HDL Risk Factor ([facility]) 3.1 CALC Low 4.2-7.0 Liver Function ([facility]) 07/03/2003 Total Protein 6.9 g/dL 6.3-8.1 Albumin ([facility]) 4.3 3.8-5.5 A/G Ratio ([facility]) 1.7 0.6-2.2 Globulin 2.6 2.0-4.8 Alkaline Phosphatase (F/C/CTX) 94 U/L 30-110 Alt (SGPT) 14 10-40 Ast (Sgot) ([facility]) 17 U/mL 5-34 Bilirubin, Total 0.7 mg/dL 0.2-1.3 Bilirubin, Direct 0.2 mg/dL 0-0.6 Bilirubin, Indirect 0.47 ml/dl 0.10-1.0 Comp Metabolic ([facility]) 04/24/2003 Sodium 135 mmol/L 135-145 Potassium 4.4 mmol/L 3.5-5.0 Chloride 98 mmol/L Low 101-111 Co2 35.0 mmol/L High 22-32 Anion Gap 2.0 mmol/L 2-11 Glucose, Serum (Fma/CMC/CTX) 131 mg/dL High 70-105 BUN (Fma/CMC/Centrex) 25 mg/dL High 6-24 Creatinine (Fma/CMC/CTX) 1.5 mg/dL High 0.5-1.4 BUN/Creatinin Ratio 16.7 8-20 Calcium (Fma/CMC/Centrex) 9.6 mg/dL 8.7-10.2 Total Protein 6.2 GM/DL 6.2-8.1 Albumin (Fma/CMCC/Centrex) 3.1 Low 3.6-5.4 Globulin 3.1 2-4 A/G Ratio (Fma/CMC/[facility]rex) 1.0 1-3 Bilirubin, Total 1.5 mg/dL 0.4-1.5 Alkaline Phosphatase (F/C/CTX) 84 U/L 39-117 Alt (SGPT) (Fma/CMC/Centrex) 22 17-63 Ast (Sgot) (Fma/CMC/Centrex) 28 12-42 CBC W/ Manual Dif ([facility]) 04/24/2003 WBC 13.2 High 3.6-9.6 RBC 4.53 3.90-5.70 52 Hemoglobin (Fma/CMC/CTX) 14.7 g/dL 12.1 - 17.2 Hematocrit (Fma/CMC/CTX) 44.2 % 36.1 - 50.3 Mean Corpuscular Vol 97.6 High 82.2-97.4 Mean Corpuscular Hemaglobin 32.5 27.6-33.3 Mean Corpuscular Hemo Concen 33.3 33.0-35.5 RDW 13.2 11.6-13.7 Platelets 216 10^3/ul 150-400 53 Mean Platelet Volume 8.4 7.4-10.4 Neutrophils 40 Band 41 Lymph From [facility] 3 Monocytes 6 % 1.7-9.3 Eosinophils -- Basophils -- Metamyelocytes 6 Myelocytes 4 Promyelocyte -- Blast -- Atypical Lymph -- NRBC -- Morphology (Fma/CMC/[facility]rex) -- Comments SEE DETAIL 54 Liver Function ([facility]) 01/21/2003 Total Protein 6.9 g/dL 6.3-8.1 Albumin (a/[facility]) 4.7 3.8-5.5 A/G Ratio (a/[facility]rex) 2.1 0.6-2.2 Globulin 2.2 2.0-4.8 Alkaline Phosphatase (F/C/CTX) 92 U/L 22-95 Alt (SGPT) 19 10-40 Ast (Sgot) (a/[facility]) 21 U/mL 5-34 Bilirubin, Total 0.6 mg/dL 0.2-1.3 Bilirubin, Direct 0.2 mg/dL 0-0.6 Bilirubin, Indirect 0.41 ml/dl 0.10-1.0 Lipid Profile ([facility]) 01/21/2003 Cholesterol 222 mg/dL High 120-200 Triglyceride 192 mg/dL 30-200 HDL-Chol 46 30-70 LDL-Calculated ([facility]) 137 CALC High 0-129 VLDL 38 0-50 HDL Risk Factor ([facility]) 4.8 CALC 4.2-7.0 Laboratory test finding 01/21/2003 PSA 0.94 0.0-4.0 Ua - Non Micro ([facility]) 01/14/2003 Appearance CLEAR Color LT. YELLOW Glucose NEG Bilirubin NEG Ketones NEG SP Grav 1.010 Blood NEG PH 8.0 Protein NEG Urobil 0.2 Nitrite NEG Leukocytes NEG Comp+ Lipid ([facility]) 05/25/2002 Sodium 143 mmol/L 135-146 Potassium 4.4 mmol/L 3.5-5.3 Chloride 104 mmol/L 98-110 Uric Acid 7.8 mg/dL 2.7-8.2 Phosphorus 3.4 mg/dL 2.1-4.3 Calcium (a/[facility]) 9.6 mmol/L 8.5-10.4 Ionized Calcium 4.2 mg/dL 3.8-4.5 Magnesium 2.4 mg/dL 1.5-2.5 Alkaline Phosphatase (F/C/CTX) 85 U/L 20-125 GGT 66 U/L 2-80 Ast (Sgot) (Fma/CMC/Centrex) 19 U/L 2-50 Alt (SGPT) (a/[facility]) 18 U/L 2-60 LD 139 U/L 100-250 Bilirubin, Total 0.6 mg/dL 0.2-1.5 Bilirubin, Direct 0.1 mg/dL 0.0-0.3 Glucose, Serum (a/CMC/CTX) 108 mg/dL 65-109 BUN (Fma/CMC/[facility]rex) 22 mg/dL 7-30 Creatinine (Fma/CMC/CTX) 1.1 mg/dL 0.5-1.4 BUN/Creatinin Ratio 20.4 mg/dL 6-25 Total Protein 7.1 GM/DL 6.0-8.3 Albumin (Fma/CMCC/Centrex) 4.3 GM/DL 3.2-4.6 Globulin 2.8 g/dL 2.2-4.2 A/G Ratio (A/G Ratio) 1.5 0.8-2.0 Cholesterol (Fma/CMC/Centrex) 233 mg/dL High <200 Cholesterol / HDL Ratio 3.6 <5.0 LDL, Calculated ([facility]) 133 High <130 Triglyceride 175 mg/dL High <150 Iron, Total (Fma/CMC/Centrex) 77 g/dL 40-190 HDL-Chol 65 >40 Tibc 300 250-400 Iron Saturation Percent 26 % 13-48 CBC Simple ([facility]) 05/25/2002 WBC 8.4 x1000 3.8-10.8 RBC 4.53 xMILLION 4.2-5.80 Hemoglobin (a/CMC/CTX) 15.1 g/dL 13.2-17.1 Hematocrit (a/CMC/CTX) 43.7 % 38.5-50.0 Mean Corpuscular Vol 96.5 FL 80-100 Mean Corpuscular Hemaglobin 33.3 pg High 27-33 Mean Corpuscular Hemo Concen 34.5 % 32-36 RDW 13.5 % 11.0-15.0 Liver Function ([facility]) 12/19/2001 Albumin (a/CMCC/Centrex) 4.7 3.8-5.5 Alkaline Phosphatase 89 U/L 22-95 Bilirubin, Direct 0.1 mg/dL 0-0.6 Bilirubin, Total 0.4 mg/dL 0.2-1.3 Ast (Sgot) 23 5-40 Alt (SGPT) 19 10-40 Total Protein 6.9 g/dL 6.4-8.3 Bilirubin, Indirect 0.30 ml/dl 0.10-1.0 Lipid Profile (Fma) 12/19/2001 Cholesterol 257 mg/dL High 140-200 Triglyceride 232 mg/dL High 30-150 VLDL 46 0-50 LDL-Calculated 150 0-160 HDL-Chol 61 30-70 Free T4/TSH Profile 12/19/2001 Free T4 1.27 ng/dL 0.7-1.55 TSH 3.37 0.4-4.2 Comp+ Lipid ([facility]) 06/02/2001 Sodium 142 mmol/L 135-146 Potassium 4.6 mmol/L 3.5-5.3 Chloride 104 mmol/L 98-110 Uric Acid 6.9 mg/dL 1.7-7.5 Phosphorus 3.1 mg/dL 2.5-4.5 Calcium 9.2 mmol/L 8.5-10.4 Ionized Calcium 4.2 mg/dL 3.8-4.5 Magnesium 2.3 mg/dL 1.5-2.5 Alkaline Phosphatase 88 U/L 20-125 GGT 46 U/L 2-60 Ast (Sgot) 18 U/L 2-35 Alt (SGPT) 15 U/L 2-40 LD 137 U/L 100-250 Bilirubin, Total 0.5 mg/dL 0.2-1.3 Bilirubin, Direct 0.1 mg/dL 0.0-0.3 Glucose 108 mg/dL 65-109 BUN 18 mg/dL 7-25 Creatinine 1.1 mg/dL 0.5-1.2 BUN/Creatinin Ratio 15.9 mg/dL 6-25 Total Protein 6.7 GM/DL 6.0-8.3 Albumin 4.4 GM/DL 3.5-4.9 Globulin 2.3 g/dL 2.2-4.2 A/G Ratio 1.9 0.8-2.0 Cholesterol 211 mg/dL High <200 Cholesterol / HDL Ratio 3.25 <4.46 LDL-Calculated 111 High <100 Triglyceride 176 mg/dL High <150 Iron, Total 70 g/dL 35-175 HDL-Chol 65 >40 Tibc 257 250-400 Iron Saturation Percent 27 % 13-48 CBC Simple ([facility]) 06/02/2001 WBC 7.0 x1000 3.9-11.2 RBC 4.49 xMILLION 3.8-5.2 Hemoglobin 15.6 g/dL 11.9-16.9 Hematocrit 43.7 % 34-46 Mean Corpuscular Vol 97.2 FL 80-98 Mean Corpuscular Hemaglobin 34.6 pg 27.5-35.0 Mean Corpuscular Hemo Concen 35.6 % 32-36 RDW 12.8 % 11.0-15.5 Ua - Non Micro ([facility]) 05/23/2001 Appearance CLEAR LT YELLOW Glucose NEGATIVE Bilirubin NEGATIVE Ketones NEGATIVE SP Grav 1.010 Blood NEGATIVE PH 7.5 Protein NEGATIVE Urobil 0.2 Nitrite NEGATIVE Leukocytes NEGATIVE Comp Metabolic ([facility]) 03/13/2001 Albumin 4.2 3.8-5.5 Alkaline Phosphatase 89 U/L 22-95 Bilirubin, Total 0.6 mg/dL 0.2-1.3 BUN 18 7-26 Calcium 9.3 mg/dL 8.6-10.0 Creatinine 0.8 mg/dL 0.6-1.4 Glucose 116 mg/dL 70 - 118 Ast Sgot 21 U/L 5-40 Alt (SGPT) 20 10-40 Total Protein 6.8 g/dL 6.4-8.3 Sodium 138 134-149 Potassium 4.6 3.6-5.5 Chloride 99 mEq/L 94-112 Co2 26 21-32 Globulin 2.6 2.0-4.8 Albumin / Globulin Ratio 1.6 0.6-2.2 BUN/Creatinin Ratio 22.5 8.0-36 Lipid Profile ([facility]) 03/13/2001 Cholesterol 249 mg/dL High 140-200 Triglyceride 265 mg/dL High 30-150 VLDL 53 High 0-50 LDL-Calculated INVALID 0-160 HDL-Chol 67 30-70 Laboratory test finding 03/13/2001 LDL, Direct 125.3 mg/dL 0-130 TSH 6.30 0.4-4.2 PSA 0.77 0.0-4.0 CBC With Diff ([facility]) 03/13/2001 WBC 7.8 3.6-9.6 Lymphocytes 30.7 % 20.5 - 51.1 Monocytes 3.8 % 1.7-9.3 Granulocytes 65.5 % 42.2 - 75.2 Lymphocytes 2.4 10^3/uL 0.7 - 4.9 Monocytes 0.3 10^3/uL 0.1 - 0.9 Granulocytes 5.1 10^3/uL 1.5 - 7.2 RBC 4.90 3.90-5.70 Hemoglobin 16.1 g/dL 12.1 - 17.2 Hematocrit 48.1 % 36.1 - 50.3 Mean Corpuscular Vol 98.2 High 82.2-97.4 Mean Corpuscular Hemaglobin 32.8 27.6-33.3 Mean Corpuscular Hemo Concen 33.4 33.0-34.8 RDW 12.9 11.6-13.7 Platelets 315 10^3/ul 150-400 Mean Platelet Volume 8.8 7.4-10.4 CBC Simple ([facility]) 05/15/1999 WBC 7.4 x1000 4.0-11.2 RBC 4.71 xMILLION 3.9-5.6 Hemoglobin 15.9 g/dL 12.3-17.0 Hematocrit 46.2 % 36.5-49.0 Mean Corpuscular Vol 98.0 FL 81-99 Mean Corpuscular Hemaglobin 33.8 pg 27.6-35.0 Mean Corpuscular Hemo Concen 34.5 % 32-36 RDW 13.0 % 11.0-15.5 Comp+ Lipid ([facility]) 05/15/1999 Sodium 144 mmol/L 136-145 Potassium 5.2 mmol/L 3.6-5.3 Chloride 105 mmol/L 98-109 Uric Acid 6.7 mg/dL 3.0-8.3 Phosphorus 3.2 mg/dL 2.3-4.5 Calcium 10.0 mmol/L 8.6-10.2 Ionized Calcium 4.4 mg/dL 3.8-4.5 Magnesium 2.0 mg/dL 1.5-2.5 Alkaline Phosphatase 88 U/L 30-120 GGT 42 U/L 5-80 Ast (Sgot) 17 U/L 5-37 Alt (SGPT) 14 U/L 5-45 LD 132 U/L 100-225 Bilirubin, Total 0.5 mg/dL 0.2-1.5 Bilirubin, Direct 0.1 mg/dL 0.0-0.2 Glucose 114 mg/dL High 65-109 BUN 16 mg/dL 9-28 Creatinine 1.2 mg/dL 0.7-1.5 BUN/Creatinin Ratio 13.3 mg/dL 10-25 Total Protein 7.0 GM/DL 6.3-8.2 Albumin 4.4 GM/DL 3.7-4.8 Globulin 2.6 GM/DL 2.1-3.7 A/G Ratio 1.7 1.0-1.9 Cholesterol 225 mg/dL High 120-199 Cholesterol / HDL Ratio 4.33 1.00-6.2, See No 55 LDL-Calculated 127 mg/dL 75-129 Triglyceride 228 mg/dL High 40-199 Iron, Total 88 g/dL 40-160 HDL-Chol 52 mg/dL 35-59, See Note 56 Tibc 301 g/dL 248-430 Iron Saturation Percent 29 % 13-48 Laboratory test finding 05/15/1999 Comments [facility] PSA 0.6 NG/ML 0.0-4.0 1 SEE RESULT BELOW Name: LISANDRO ANTUNEZ : [address]: Savage Liu MD Acct: [id number] Unit: [id number] AGE: 86 Location: ED Re12/19/16 SEX: M Status: DEP ER SPEC: [id number] JENN: 12/19/16-[address]: Savage Liu MD REQ: [id number] RECD: 12/19/16-1204 STATUS: THELMA PATEL DR: Nav Feng MD _ SOURCE: BLOOD,[facility]: ORDERED: Blood Cult Procedure Result Reported Site Aerobic Culture Bottle Final 12/24/16- 1205 ML No Growth Day 5 Anaerobic Culture Bottle Final 12/24/16- 1205 ML No Growth Day 5 * ML - [facility] . END OF REPORT * ML=Testing performed at Main Lab DEPARTMENT OF PATHOLOGY, [address] [place] [address] Austin Landeros M.D. Director [facility] # [id number] 2 [facility] Severe Sepsis and Septic Shock Management Bundle Measure requires all lactic acids initially measuring >2.0 mmol/L be repeated. 3 Because ethnic data is not always readily available, this report includes an eGFR for both -Americans and non- Americans. The National Kidney Disease Education Program (NKDEP) does not endorse the use of the MDRD equation for patients that are not between the ages of 18 and 70, are , have extremes of body size, muscle mass, or nutritional status, or are non- or non-. According to the National Kidney Foundation, irrespective of diagnosis, the stage of the disease is based on the level of kidney function: Stage Description GFR(mL/min/1.73 m(2)) 1 Kidney damage with normal or decreased GFR 90 2 Kidney damage with mild decrease in GFR 60-89 3 Moderate decrease in GFR 30-59 4 Severe decrease in GFR 15-29 5 Kidney failure <15 (or dialysis) 4 SEE RESULT BELOW Name: LISANDRO ANTUNEZ : [address]: Savage Liu MD Acct: [id number] Unit: [id number] AGE: 86 Location: ED Re12/19/16 SEX: M Status: DEP ER SPEC: [id number] JENN: 12/19/16-1146 [facility] DR: Savage Liu MD REQ: [id number] RECD: 12/19/16120 STATUS: RES ALEXANDER DR: Nav Feng MD _ SOURCE: BLOOD,VENO SPDESC: ORDERED: Blood Cult Procedure Result Reported Site Aerobic Culture Bottle Preliminary 12/20/16- 1204 ML No Growth Day 1 Anaerobic Culture Bottle Preliminary 12/20/16- 1204 ML No Growth Day 1 * ML - MAIN LAB ([facility]) . END OF REPORT * ML=Testing performed at Main Lab DEPARTMENT OF PATHOLOGY, [address] [place] [address] Austin Landeros M.D. Director [facility] # [id number] 5 [id number] *Ascorbic acid is present which may interfere with detection of blood. 7 SEE RESULT BELOW Name: LISANDRO ANTUNEZ : [address]: Nav Feng MD Acct: [id number] Unit: [id number] AGE: 86 Location: [facility] Re11/11/16 SEX: M Status: REG REF SPEC: [id number] JENN: 11/11/16-[address]: Nav Feng MD REQ: [id number] RECD: 11/11/16-140 STATUS: COMP _ SOURCE: URINE SPDES: ORDERED: Urine Culture COMMENTS: [id number] QUERIES: Urine Source: Random Procedure Result Reported Site Urine Culture Final 11/13/16- 0720 ML No growth of clinically significant organisms * ML - [facility]) . END OF REPORT * ML=Testing performed at Main Lab DEPARTMENT OF PATHOLOGY, [address] [place] [address] Austin Landeros M.D. Director [facility] # [id number] SRC:urine 9 Source of Specimen: urine 10 Source of Specimen: urine 11 SEE RESULT BELOW Name: LISANDRO ANTUNEZ : [address]: Jaxson Gutiérrez MD Acct: [id number] Unit: [id number] AGE: 86 Location: ED Re08/24/16 SEX: M Status: DEP ER SPEC: [id number] JENN: 08/24/16 [facility] DR: Jaxson Gutiérrez MD REQ: [id number] RECD: 08/24/16 STATUS: THELMA PATEL DR: Nav Feng MD _ SOURCE: URINE SPDESC: ORDERED: Urine Culture Procedure Result Reported Site Urine Culture Final 08/26/16- 0749 ML No growth of clinically significant organisms * ML - [facility]) . END OF REPORT * ML=Testing performed at Main Lab DEPARTMENT OF PATHOLOGY, [address] [place] [address] Austin Landeros M.D. Director [facility] # [id number] 12 Acute inflammation: >10.00 13 Because ethnic data is not always readily available, this report includes an eGFR for both -Americans and non- Americans. The National Kidney Disease Education Program (NKDEP) does not endorse the use of the MDRD equation for patients that are not between the ages of 18 and 70, are , have extremes of body size, muscle mass, or nutritional status, or are non- or non-. According to the National Kidney Foundation, irrespective of diagnosis, the stage of the disease is based on the level of kidney function: Stage Description GFR(mL/min/1.73 m(2)) 1 Kidney damage with normal or decreased GFR 90 2 Kidney damage with mild decrease in GFR 60-89 3 Moderate decrease in GFR 30-59 4 Severe decrease in GFR 15-29 5 Kidney failure <15 (or dialysis) 14 [facility] Severe Sepsis and Septic Shock Management Bundle Measure requires all lactic acids initially measuring >2.0 mmol/L be repeated. 15 [id number] 16 SEE RESULT BELOW Name: LISANDRO ANTUNEZ [place] : [address]: Nav Feng MD Acct: [id number] Unit: [id number] AGE: 86 Location: [facility] Re08/10/16 SEX: M Status: REG REF SPEC: [id number] JENN: 08/10/[address]: Nav Feng MD REQ: [id number] RECD: 08/10/164 STATUS: COMP _ SOURCE: URINE SPDESC: ORDERED: Urine Culture COMMENTS: [id number] Urine Source: Random Procedure Result Reported Site Urine Culture Final 08/12/16- 0847 ML Organism 1 PSEUDOMONAS AERUGINOSA Maypearl Count >100,000 (Many) CFU/ML 1. PSEUDOMONAS AERUGINOSA M.I.C. RX --------- ------ Ampicillin >=32 R Cefazolin >=64 R Cefepime <=1 S Ceftriaxone R Ciprofloxacin <=0.25 S Gentamicin <=1 S Levofloxacin 0.25 S Meropenem <=0.25 S Nitrofurantoin >=512 R Tetracycline >=16 R Pipercillin/Tazobactam 8 S Trimethoprim/Sulfamethoxazole 80 R Amoxicillin/Clavulanic Acid >=32 R Contact the Microbiology Department for any additional antibiotic reporting. * ML - MAIN LAB ([facility]) . END OF REPORT * ML=Testing performed at Main Lab DEPARTMENT OF PATHOLOGY, [address] [place] [address] Austin Landeros M.D. Director [facility] # [id number] 17 NON-FASTING 18 SEE RESULT BELOW Name: LISANDRO ANTUNEZ : [address]: Rashmi Connelly MD Acct: [id number] Unit: [id number] AGE: 85 Location: [place] [address] Re10/25/15 SEX: M Status: ADM IN SPEC: [id number] JENN: 10/27/15-5 [facility] DR: Wiley Coffey MD REQ: [id number] RECD: 10/27/15 STATUS: THELMA PATEL DR: Nav Feng MD _ SOURCE: URINE SPDESC: ORDERED: Urine Culture Procedure Result Reported Site Urine Culture Final 10/29/15- 0818 ML Organism 1 PSEUDOMONAS AERUGINOSA [place] Count >100,000 (Many) CFU/ML 1. PSEUDOMONAS AERUGINOSA M.I.C. RX --------- ------ Ampicillin >=32 R Cefazolin >=64 R Cefepime 4 S Ceftriaxone >=64 R Ciprofloxacin <=0.25 S Gentamicin 2 S Levofloxacin 0.5 S Meropenem 0.5 S Nitrofurantoin >=512 R Tetracycline >=16 R Pipercillin/Tazobactam 8 S Trimethoprim/Sulfamethoxazole 160 R Amoxicillin/Clavulanic Acid >=32 R Contact the Microbiology Department for any additional antibiotic reporting. * ML - [facility]) . END OF REPORT * ML=Testing performed at Main Lab DEPARTMENT OF PATHOLOGY, [address] [place] [address] Austin Landeros M.D. Director [facility] # [id number] 19 [facility] Severe Sepsis and Septic Shock Management Bundle Measure requires all lactic acids initially measuring >2.0 mmol/L be repeated. 20 Because ethnic data is not always readily available, this report includes an eGFR for both -Americans and non- Americans. The National Kidney Disease Education Program (NKDEP) does not endorse the use of the MDRD equation for patients that are not between the ages of 18 and 70, are , have extremes of body size, muscle mass, or nutritional status, or are non- or non-. According to the National Kidney Foundation, irrespective of diagnosis, the stage of the disease is based on the level of kidney function: Stage Description GFR(mL/min/1.73 m(2)) 1 Kidney damage with normal or decreased GFR 90 2 Kidney damage with mild decrease in GFR 60-89 3 Moderate decrease in GFR 30-59 4 Severe decrease in GFR 15-29 5 Kidney failure <15 (or dialysis) 21 Acute inflammation: >10.00 22 Reference Range and Interpretation: TnI (ng/mL) Interpretation Less Than 0.03 ng/mL Not supportive of diagnosis of [place] 0.03 - 0.50 ng/mL Indeterminate: suggest serial studies if clinically indicated. Greater than 0.5 ng/mL Consistent with diagnosis of OH 23 SRC:<Blank> 1URINE VACUTAI NER 24 Source of Specimen: <Blank> 1URINE VACUTAI 25 Source of Specimen: <Blank> 1URINE VACUTAI Culture shows less than 10,000 colony forming units of bacteria per milliliter of urine. This colony count is not generally considered to be clinically significant. 26 NON-FASTING 27 Because ethnic data is not always readily available, this report includes an eGFR for both -Americans and non- Americans. The National Kidney Disease Education Program (NKDEP) does not endorse the use of the MDRD equation for patients that are not between the ages of 18 and 70, are , have extremes of body size, muscle mass, or nutritional status, or are non- or non-. According to the National Kidney Foundation, irrespective of diagnosis, the stage of the disease is based on the level of kidney function: Stage Description GFR(mL/min/1.73 m(2)) 1 Kidney damage with normal or decreased GFR 90 2 Kidney damage with mild decrease in GFR 60-89 3 Moderate decrease in GFR 30-59 4 Severe decrease in GFR 15-29 5 Kidney failure <15 (or dialysis) 28 Desirable <150 Borderline high 150-199 High 200-499 Very High >500 29 Desirable <200 Borderline high 200-239 High >239 30 Low <40 Desirable: 40-60 High: >60 31 Desirable: <100 mg/dL Near Optimal: 100-129 mg/dL Borderline High: 130-159 mg/dL High: 160-189 mg/dL Very High: >189 mg/dL 32 SDS 05/14 33 RUN DATE: 05/09/14 [facility] LAB LIVE PAGE 1 RUN TIME: [address] [place] [id number] Specimen Inquiry Name: LISANDRO ANTUNEZ : [address]: Xander Augustine MD Acct: [id number] Unit: [id number] AGE: 83 Location: PAT Re05/07/14 SEX: M Status: REG REF SPEC: [id number] JENN: 05/07/14-[address]: Xander Augustine MD REQ: [id number] RECD: 05/07/14 STATUS: THELMA PATEL DR: Nav Feng MD _ SOURCE: URINE SPDESC: ORDERED: Urine Culture COMMENTS: RYAN 05/14 QUERIES: Urine Source: Catheterization Procedure Result Verified Site Urine Culture Final 05/09/14- 0918 ML Organism 1 PSEUDOMONAS AERUGINOSA [place] Count >100,000 (Many) CFU/ML Organism 2 ENTEROCOCCUS FAECALIS [place] Count 1-10,000 (Few) CFU/ML 1. PSEUDOMONAS AERUGINOSA M.I.C. RX --------- ------ Ampicillin >=32 R Cefazolin >=64 R Cefepime 8 S Ceftriaxone >=64 R Ciprofloxacin >=4 R Gentamicin 2 S Levofloxacin >=8 R Meropenem 1 S Nitrofurantoin >=512 R Tetracycline >=16 R Pipercillin/Tazobactam 32 S Trimethoprim/Sulfamethoxazole >=320 R Amoxicillin/Clavulanic Acid >=32 R CONTINUED ON NEXT PAGE * ML=Testing performed at Main Lab DEPARTMENT OF PATHOLOGY, [facility] [employer] [place], [place] [address] Austin Landeros M.D. Director [facility] # [id number] RUN DATE: 05/09/14 [facility] LAB LIVE PAGE 2 RUN TIME: 917 [facility] [employer] [place], [place] [address] Specimen Inquiry Patient: LISANDRO ANTUNEZ [id number] (Continued) Specimen: [id number] Collected: 05/07/14 Received: 05/07/14-1150 (Continued) Procedure Result Verified Site Urine Culture Final (continued) 05/09/14917 2. ENTEROCOCCUS FAECALIS M.I.C. RX --------- ------ Ampicillin <=2 S Penicillin 4 S Ciprofloxacin 1 S Gentamicin High Level S Levofloxacin 1 S Linezolid 2 S Nitrofurantoin <=16 S * Quinupristin/Dalfopristin 8 R * Streptomycin High Level S Tetracycline >=16 R Tigecycline <=0.12 S Vancomycin <=0.5 S Imipenem-Deduced S * Ampicillin/Sulbactam-Deduced S * These antibiotics are not available in the [facility] Formulary Contact the Microbiology Department for any additional antibiotic reporting. Contact the Microbiology Department for any additional antibiotic reporting. * ML - MAIN LAB ([facility]) . END OF REPORT * ML=Testing performed at Main Lab DEPARTMENT OF PATHOLOGY, [address] [place] [address] Austin Landeros M.D. Director [facility] # [id number] 34 Effective April 11, 2014 at 12:00pm there is an updated reference range. 35 Because ethnic data is not always readily available, this report includes an eGFR for both -Americans and non- Americans. The National Kidney Disease Education Program (NKDEP) does not endorse the use of the MDRD equation for patients that are not between the ages of 18 and 70, are , have extremes of body size, muscle mass, or nutritional status, or are non- or non-. According to the National Kidney Foundation, irrespective of diagnosis, the stage of the disease is based on the level of kidney function: Stage Description GFR(mL/min/1.73 m(2)) 1 Kidney damage with normal or decreased GFR 90 2 Kidney damage with mild decrease in GFR 60-89 3 Moderate decrease in GFR 30-59 4 Severe decrease in GFR 15-29 5 Kidney failure <15 (or dialysis) 36 Reference Range and Interpretation: TnI (ng/mL) Interpretation Less Than 0.03 ng/mL Not supportive of diagnosis of OH 0.03 - 0.50 ng/mL Indeterminate: suggest serial studies if clinically indicated. Greater than 0.5 ng/mL Consistent with diagnosis of OH 37 Because ethnic data is not always readily available, this report includes an eGFR for both -Americans and non- Americans. The National Kidney Disease Education Program (NKDEP) does not endorse the use of the MDRD equation for patients that are not between the ages of 18 and 70, are , have extremes of body size, muscle mass, or nutritional status, or are non- or non-. According to the National Kidney Foundation, irrespective of diagnosis, the stage of the disease is based on the level of kidney function: Stage Description GFR(mL/min/1.73 m(2)) 1 Kidney damage with normal or decreased GFR 90 2 Kidney damage with mild decrease in GFR 60-89 3 Moderate decrease in GFR 30-59 4 Severe decrease in GFR 15-29 5 Kidney failure <15 (or dialysis) 38 Reference Range and Interpretation: TnI (ng/mL) Interpretation Less Than 0.03 ng/mL Not supportive of diagnosis of OH 0.03 - 0.50 ng/mL Indeterminate: suggest serial studies if clinically indicated. Greater than 0.5 ng/mL Consistent with diagnosis of OH 39 Critical Result LACT:2.5 Called to [id number] at: 13:11:36 by:[id number] Read back by:[id number] 40 >100 to <200 pg/mL: likely compensated congestive heart failure (CHF) 200 to 400 pg/mL: likely moderate CHF >400 pg/mL: likely moderate to severe CHF [place] [facility] 41 RESULTS VERIFIED BY REPEAT ANALYSIS 42 result rehan'd 43 result rehan'd 44 RESULT REHAN'D 45 RESULT REHAN'D 46 RESULT REHAN'D 47 RESULT REHAN'D 48 FASTING 49 RESULT VERIFIED BY REPEAT ANALYSIS 50 FROZEN PLASMA 51 . Abnormal BNP values are associated with increased mortality and are independent of age, Troponin-I and the presence or absence of heart failure, renal insufficiency and ST segment deviation. The adjusted odds ratios for at 10 months at a median of 40 hours after the onset of ischemic symptoms are: Quartile Plasma BNP (pg/ml) Odds ratio Q-1 5.0 to 43.6 Reference group Q-2 43.7 to 81.2 3.8 (95% C.I., 1.1 to 3.0) Q-3 81.3 to 137.8 4.0 (95% C.I., 1.2 to 13.7) Q-4 137.9 to 1456.6 8.8 (95% C.I., 1.7 to 19.7) BNP is also associated with the risk of recurrent or new myocardial infarction, and/or new or worsening congestive heart failure. N. Engl. J. Med., 2001; 345:1014-21 52 RBC APPEAR NORMAL ON SMEAR 53 PLTS APPEAR NORMAL ON SMEAR 54 SLIGHT TOXIC VACUOLIZATION 55 THE RANGE FOR CHOLESTEROL/HDL CHOLESTEROL REPRESENTS THE 75TH PERCENTILE FOR THE SPECIFIED AGE AND GENDER OF THIS PATIENT. THE HIGHER THE VALUE, THE HIGHER THE RISK FOR CHD. 56 A HDL CONCENTRATION LESS THAN 35MG/DL CONSTITUTES A CHD RISK FACTOR. A CONCENTRATION EQUAL TO OR GREATER THAN 60 MG/DL CONSTITUTES A NEGATIVE RISK FACTOR. Procedures Date CPT Code Description Status Comment 08/02/2016 59017 Pulse Oximetry Completed 09/22/2015 94372 Pulse Oximetry Completed 06/09/2015 23310 Pulse Oximetry Completed 04/21/2015 39392 Pulse Oximetry Completed 10/14/2014 32653 Electrocardiogram Complete Completed 05/15/2012 73868 Pulse Oximetry Completed 06/01/2011 35630 Pulse Oximetry Completed 01/20/2009 26465 Pulse Oximetry Completed 02/25/2005 22540 Pulse Oximetry Completed 02/25/2005 79313 Electrocardiogram Complete Completed 01/14/2003 82193 Electrocardiogram Complete Completed 07/14/2001 Colonoscopy Completed REPEAT @ AGE 79 05/23/2001 59856 Electrocardiogram Complete Completed 12/15/1999 88383 Electrocardiogram Complete Completed 03/31/1999 07899 Excise Benign Lesion 1.1-2CM Completed Trunk/Arm/Leg 01/01/1998 02006 Electrocardiogram Complete Completed Encounters Type Date Location Provider CPT E/M Dx Office Visit 02/09/2017 2:15p [facility] Office Nav Feng M.D. 86728 Z11.1 Office Visit 02/07/2017 1:20p [facility] Office Nav Feng M.D. 43939 J44.9 I10 F02.80 F41.9 Z11.1 Office Visit 12/13/2016 1:10p [facility] Office Nav Feng M.D. 28742 R22.9 Office Visit 12/05/2016 1:40p Main Office Nav Feng M.D. 44474 Z23 J44.9 R60.0 I10 F02.80 F41.9 Office Visit 11/17/2016 10:30a [facility] Office CECILIO Hartley 44744 J44.9 Office Visit 10/19/2016 9:40a Main Office Nav Feng M.D. 76107 R60.0 I10 F41.9 F02.80 N39.0 Office Visit 09/12/2016 11:00a Main Office CECILIO Hartley 22412 R60.0 S81.802A W22.09xA Office Visit 08/02/2016 3:20p [facility] Office Nav Feng M.D. 69356 J44.9 R60.0 I10 F41.9 Office Visit 2016 11:00a [facility] Office Nav Feng M.D. 69850 Z11.1 Office Visit 07/05/2016 1:40p [facility] Office Nav Feng M.D. 15208 J44.9 R60.0 Z11.1 I10 F41.9 Office Visit 04/11/2016 8:45a [facility] Sanam Bucio, [facility] [address] B35.9 Office Visit 12/02/2015 1:15p [facility] Tabitha Álvarez leon-C 82879 H62.41 S81.801A W01.198A Office Visit 11/10/2015 9:00a [facility] Nav Feng M.D. 99283 J44.9 F02.80 I10 R60.0 R32 Z23 Office Visit 10/22/2015 9:45a [facility] Lexii Lin, [facility] [address] R19.7 Office Visit 10/20/2015 1:40p [facility] Nav Feng M.D. 37337 R19.7 J44.9 F32.9 Office Visit 09/22/2015 1:40p [facility] Nav Feng M.D. 71146 J44.9 F05 Office Visit 09/10/2015 2:00p [facility] Tyler Murrell M.D. 56628 F05 F02.80 E03.9 I10 Office Visit 06/09/2015 1:00p [facility] Nav Feng M.D. 90729 J44.9 F02.80 E03.9 Office Visit 04/21/2015 1:00p [facility] Nav Feng M.D. 35467 J44.9 F02.80 Office Visit 12/12/2014 2:10p Main Office Nav Feng M.D. 37632 Z23 R55 J44.9 Office Visit 10/14/2014 9:10a [facility] Nav Feng M.D. 67037 780.2 Office Visit 03/18/2014 2:40p [facility] Hang Rey M.D. 25976 486 Office Visit 02/04/2014 9:10a [facility] Nav Feng M.D. 16138 496 244.9 401.9 v03.82 v04.81 Office Visit 11/13/2013 12:00p Main Office Nav Feng M.D. 70179 599.0 Office Visit 10/01/2013 10:10a [facility] Nav Feng M.D. 39509 496 244.9 401.9 Office Visit 04/02/2013 9:00a [facility] Nav Feng M.D. 84206 401.9 244.9 496 272.0 Office Visit 11/20/2012 10:10a [facility] Nav Feng M.D. 69866 V04.81 496 401.9 Office Visit 05/15/2012 10:10a [facility] Nav Feng M.D. 04238 496 401.9 244.9 Office Visit 01/10/2012 9:00a [facility] Nav Feng M.D. 98150 496 401.9 244.9 v04.81 Office Visit 09/19/2011 1:00p Main Office Nav Feng M.D. 44404 496 272.0 Office Visit 06/22/2011 2:10p Main Office Nav Feng M.D. 56583 496 Office Visit 06/01/2011 11:10a Main Office Nav Feng M.D. 04740 786.05 Office Visit 01/28/2011 4:20p Main Office Nav Feng M.D. 22608 V68.89 Office Visit 08/24/2010 9:00a [facility] Nav Feng M.D. 45955 401.9 272.0 244.9 Office Visit 03/30/2010 11:10a [facility] Nav Feng M.D. 05659 401.9 Office Visit 11/10/2009 9:10a [facility] Nav Feng M.D. 83303 401.9 272.0 244.9 V04.81 Office Visit 08/04/2009 9:00a [facility] Nav Feng M.D. 38587 401.9 272.0 244.9 Office Visit 04/28/2009 10:10a [facility] Nav Feng M.D. 22021 784.91 401.9 Office Visit 03/03/2009 2:10p [facility] Nav Feng M.D. 54689 786.2 784.91 Office Visit 01/20/2009 4:00p [facility] Nav Feng M.D. 92766 786.2 780.52 Office Visit 07/30/2008 9:00a Main Office Nav Feng M.D. 87354 401.9 244.9 V76.44 272.0 Office Visit 09/03/2007 9:00a Main Office Nav Feng M.D. 09169 784.7 401.9 244.9 V76.44 Office Visit 11/14/2006 2:20p [facility] Nav Feng M.D. 19688 366.9 401.9 272.0 244.9 600.0 V72.83 Office Visit 08/14/2006 8:20a Main Office Nav Feng M.D. 34120 401.9 272.0 244.9 Office Visit 05/15/2006 8:20a Main Office Nav Feng M.D. 00260 401.9 272.0 244.9 V76.44 Office Visit 04/13/2006 10:00a Main Office Nav Feng M.D. 10148 401.9 272.0 244.9 Office Visit 12/05/2005 9:10a Main Office Nav Feng M.D. 45308 401.9 272.0 Office Visit 08/05/2005 10:00a Main Office Nav Feng M.D. 95421 272.0 401.9 Office Visit 05/26/2005 9:20a Main Office Nav Feng M.D. 51412 401.9 786.05 Office Visit 04/08/2005 10:10a Main Office Nav Feng M.D. 40521 244.9 786.05 Office Visit 02/25/2005 9:00a [facility] Nav Feng M.D. 88338 786.05 429.2 Office Visit 07/16/2004 11:20a [facility] Nav Feng M.D. 81481 785.6 Office Visit 07/09/2004 3:00p Main Office Nav Feng M.D. 04839 995.3 Office Visit 01/26/2004 8:00a Main Office Nav Feng M.D. 69288 788.41 244.9 272.0 Office Visit 10/22/2003 1:00p Main Office Nav Feng M.D. 19039 244.9 429.2 Office Visit 09/25/2003 2:10p Main Office Sanam Cunningham M.D. 79597 709.9 Office Visit 07/11/2003 3:10p Main Office Savage Bagley M.D. 18842 496 486 429.2 272.4 Office Visit 05/06/2003 9:40a Main Office Negrito Santos M.D. 88185 486 Office Visit 04/24/2003 10:30a Main Office Devan Cox M.D. 48199 486 272.4 496 V58.69 401.9 429.2 Office Visit 01/14/2003 10:20a Main Office Savage Bagley M.D. 89124 429.2 244.9 401.9 496 V76.41 Office Visit 04/10/2002 10:10a [facility] Savage Bagley M.D. 50306 429.2 272.4 496 Office Visit 12/19/2001 9:10a [facility] Savage Bagley M.D. 21253 272.4 496 244.9 V04.8 Office Visit 09/12/2001 11:00a [facility] Savage Bagley M.D. 01112 Office Visit 05/23/2001 10:20a [facility] Savage Bagley M.D. 45389 Office Visit 03/09/2001 9:00a [facility] Savage Bagley M.D. 11375 Office Visit 12/05/2000 3:30p [facility] Angelic Rodriguez 30824 Office Visit 04/12/2000 1:20p [facility] Savage Bagley M.D. 45601 Office Visit 03/29/2000 1:40p [facility] Savage Bagley M.D. 47983 Office Visit 12/15/1999 2:20p [facility] Savage Bagley M.D. 54535 Office Visit 10/08/1999 1:00p Main Office Savage Bagley M.D. 10336 Plan of Care Future Appointment(s):03/13/2017 1:40 pm - Nav Feng M.D. at Main Dvftro3902/24/2017 - Karla Gorman, NPR26.81 Unsteadiness on feetComments: VNS PT referralraised toilet seat fall precautions [id number] Repeated fallsNew Medication:Toilet Seat ElevatorAllComments:~B_~U_Medication Management~ b_~u_ Patient Understands medications he's taking? Yes No Are there Barriers to Adherence? Yes No Has the patient been asked about herbal supplements and therapies, and OTC meds? Yes No ~B_~U_Care Plan~b_~u _1. Patient has been queried about patient's goals/preferences and functional/ lifestyle goals at relevant visits. If relevant, describe: na2. Treatment goals as explained to the patient: above3. Are there barriers to meeting treatment goals? Yes No If Yes, please describe:4. Self-Management goals as described to the patient: Yes NoFollow up:As always, we strongly encourage a healthy diet and making physical activity a part of your every day life. If you have questions about how or where to start, please contact the office.
[2017-02-28 12:12] LABS: ABS Basophils 0 10^3/ul (0-0.2); ABS Eosinophils 0.2 10^3/ul (0-0.6); ABS Lymphocytes 1.7 10^3/ul (1.0-4.8); ABS Monocytes 0.7 10^3/ul (0-0.8); ABS Neutrophils 7.1 10^3/ul (1.5-7.7); ABS Nucleated RBC 0 10^3/ul; Eosinophil % 2.4 % (0-6); Hematocrit 40 % (42-52); Hemoglobin 13.5 g/dl (14.0-18.0); Lymphocyte % 17.5 % (25-47); Mean Corpuscular HGB Conc 34 g/dl (31-36); Mean Corpuscular Hemoglobin 32 pg (27-31); Mean Corpuscular Volume 94 fL (80-94); Mean Platelet Volume 8 um3 (7.4-10.4); Nucleated Red Blood Cells % 0; Platelet Count 289 10^3/ul (150-450); Red Blood Count 4.22 10^6/ul (4.0-5.4); Red Cell Distribution Width 15 % (10.5-15); White Blood Count 9.8 10^3/ul (3.5-10.8)
--- NOTE | 2017-02-28 12:12 | RAD ---
INDICATION: Altered mental status COMPARISON: Chest x-ray December 19, 2016 TECHNIQUE: An AP portable view obtained at 1150 hours is submitted. FINDINGS: Bones/Soft Tissues: There are no acute bony findings. Cardiomediastinal: The cardiomediastinal silhouette is normal. Lungs: There are no infiltrates. Pleura: There are no pleural effusions. Other: None IMPRESSION: NO ACTIVE DISEASE
--- NOTE | 2017-02-28 12:17 | RAD ---
Indication: Confusion, altered mental status. CT of the brain was performed without IV contrast. Ventricular structures are midline. No midline shift is noted. Periventricular lucency consistent with chronic ischemic White matter change is noted. There is no evidence of intracranial mass or hemorrhage. No other high or low density lesions are identified. When compared to previous exam of November 27, 2016 no significant change is noted. Mastoid air cells and paranasal sinuses are otherwise unremarkable. There is poor pneumatization of the right mastoid air cells. IMPRESSION: Chronic ischemic White matter change. No intracranial mass or hemorrhage is noted.
[2017-02-28 12:27] LABS: EGFR Non-African American 81.9 (>60)
[2017-02-28] MEDS ORDERED: NS 0.9% 1000 ML* 1,000 ML IV ONE (12:48)
[2017-02-28] MEDS ORDERED: Albuterol/Ipratropium NEB.SOL* Albuterol 2.5 MG/Ipratropium 0.5 MG 3 ML INH ONE (13:16)
[2017-02-28 13:18] LABS: INR 0.89 (0.77-1.02)
[2017-02-28 15:00] LABS: Urine Appearance Cloudy; Urine Blood Negative (Negative); Urine Color Yellow; Urine Ketones Negative (Negative); Urine Protein Negative (Negative); Urine Specific Gravity 1.018 (1.010-1.030); Urine Urobilinogen Positive (Negative)
[2017-02-28] MEDS ORDERED: Sulfamethox/Trimethoprim DS 800/160* TAB PO ONE (15:45)
[2017-02-28] MEDS ORDERED: Ciprofloxacin TAB* 500 MG PO ONE (15:49)
[2017-02-28 16:16] VITALS: BP 156/58
--- NOTE | 2017-02-28 20:15 | CONS ---
CC: Dr. Feng; Dr. Woody Kirk * CONSULTATION REPORT: DATE OF CONSULT: 02/28/17 PRIMARY CARE PROVIDER: Dr. Feng. MY ATTENDING WHILE IN THE HOSPITAL: Dr. Woody Kirk. CHIEF COMPLAINT: Unresponsive episodes x2 this morning. HISTORY OF PRESENT ILLNESS: The patient is an 86-year-old male with past medical history significant for dementia, COPD, hypertension, BPH, hypothyroidism, recurrent UTI, who presents after this morning being found at [place]. It was observed that the patient would not open his eyes, but he was able to respond appropriately and move all his extremities. Another episode like this happened while he was in the emergency department; however, the patient was never fully unresponsive. The patient states he remembers these episodes, does not know why he cannot open his eyes and was just very tired. The patient denies any falls, dizziness, lightheadedness, palpitations, chest pain, shortness of breath, fevers, chills or other symptoms associated with this. The patient denies decrease in urine output. The patient recently had stomach virus that caused nausea and vomiting starting last Monday as well as diarrhea. The patient and son states that he has been drinking more to keep up with this. The patient's first day without diarrhea was yesterday. The patient was seen to be in his normal state of health at 7 p.m. yesterday. The patient denies dysuria, frequency of urination or incomplete emptying; however, the patient has had 2 to 3 UTIs in the past year due to urinary retention for which he follows with Dr. Tellez of Urology. It was discussed with the patient and the son, the risks and benefits of being admitted to the hospital and they were in favor of avoiding hospitalization if possible. PAST MEDICAL HISTORY: COPD, hypertension, BPH, hypothyroidism, hyperlipidemia, dementia, recurrent UTI. PAST SURGICAL HISTORY: TURP, hernia repair, and bilateral cataract repair. MEDICATIONS: 1. Levothyroxine 150 mcg p.o. daily. 2. Hydrochlorothiazide 12.5 mg p.o. daily. 3. Simvastatin 20 mg p.o. daily. 4. Spiriva 1 cap inhalation daily. 5. Doxazosin 4 mg p.o. daily. 6. Symbicort 84.5 two puffs inhalation p.o. daily. 7. Ventolin 2 puffs inhalation as needed for shortness of breath and wheezing. 8. Colace 100 mg p.o. b.i.d. 9. MiraLAX 17 g p.o. daily. 10. Amlodipine 5 mg p.o. daily. 11. Naproxen 250 mg p.o. q.12 hours as needed. 12. Tylenol 325 mg p.o. q.6 hours as needed. 13. Vitamin D12 1000 mcg p.o. daily. 14. Citalopram 20 mg p.o. daily. 15. Benadryl 25 mg p.o. q.8 hours as needed. ALLERGIES: No known drug allergies. FAMILY HISTORY: Significant for coronary artery disease. SOCIAL HISTORY: The patient quit smoking 9 years ago, rarely drinks alcohol. No illicit drugs. 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 The patient was and has 2 children. REVIEW OF SYSTEMS: A 14-point review of systems was conducted and is negative except as above. PHYSICAL EXAMINATION: General: The patient is an 86-year-old male who appears stated age and sitting comfortably in the bed, no acute distress. Vital signs: Temperature 97.6, pulse rate 56, respiratory rate 18, oxygen saturation 98% on room air, blood pressure 154/56. HEENT: Head: Normocephalic, atraumatic. Sclerae anicteric. No conjunctival injection. Nasal mucosa moist. Oral mucosa dry with mucous. No pharyngeal erythema or exudate. Neck: Supple, nontender. No lymphadenopathy. No carotid bruit auscultated. Cardiac: Regular rate and rhythm. No clicks, murmurs, gallops, or rubs. Pulses 2+ in bilateral dorsalis pedis, posterior tibialis, and radial areas. Respiratory: Good air exchange bilaterally. Wheezes heard in the left anterior lobe and right lower lobe. Abdomen: Soft, nontender. Mildly distended. No guarding. No tenderness to palpation. Bowel sounds are present in all 4 quadrants. No hepatosplenomegaly. Skin: Clean, dry, and intact. No rash. 1+ edema in bilateral lower extremities. Neurologic: Cranial nerves II through XII grossly intact. The patient is alert and oriented x3, but lethargic. No focal deficits. Psychiatric: The patient is subdued, but otherwise pleasant and cooperative. DIAGNOSTIC STUDIES/LAB DATA: White blood cell count 9.8, hemoglobin 13.5, hematocrit 40, MCV 94, MCH 32, platelet count 289. INR 89, APTT 30.7. Sodium 136, potassium 4.4, chloride 100, carbon dioxide 34, anion gap 2, BUN 18, creatinine 0.88, BUN and creatinine ratio 20.5, glucose 93, lactic acid 1.1, calcium 9.1. Total bilirubin 0.50, AST 17, ALT 13, alkaline phosphatase 76, troponin I 0.02, total protein 5.8, albumin 3.4, globulin 2.4, TSH 3.62, free T4 0.88. Urine shows yellow cloudy urine with positive nitrite and leukocyte esterase. Negative bacteria and glucose. Influenza A and B are positive. IMPRESSION: The patient is an 86-year-old male with past medical history significant for chronic obstructive pulmonary disease, hypertension, benign prostatic hypertrophy, chronic urinary retention and recurrent urinary tract infection, dementia, hypothyroidism, who presents with approximately 12 hours of sedation and 2 episodes where he would not open up his eyes, but was otherwise aware and responsive. This likely represents altered mental status due to acute urinary tract infection and dehydration from diarrhea. The patient would not benefit from admission to the hospital and there would be especially susceptible to risks such as eris influenza or other hospital- acquired infections. ASSESSMENT AND PLAN: 1. Lethargy, urinary tract infection, and dehydration. The patient is likely lethargic due to dementia, being exacerbated by acute urinary tract infection. The patient will be discharged back to home on ciprofloxacin 500 mg p.o. b.i.d. for 7 days for complicated urinary tract infection. The patient was given 1 L of fluid in the emergency department to compensate for moderate dehydration, which may also be contributing to his altered mental status. The patient's influenza is negative and has no other significant laboratory abnormalities. 2. Chronic obstructive pulmonary disease. The patient was wheezing while in the hospital. The patient was given a DuoNeb with limited relief. The patient will be continued on his home medications for chronic obstructive pulmonary disease. 3. Hypertension. The patient was normotensive, just borderline hypertensive while in the hospital, we continued on home amlodipine and hydrochlorothiazide. 4. Hyperlipidemia. Continue home simvastatin. 5. Dementia. Continue supportive care including assisted living at [facility]. 6. Urinary tract infection. The patient should stay well hydrated to avoid urinary retention, but he should continue with doxazosin. The patient should be aware for orthostatic hypotension possibly caused by this medication. 7. Hypothyroidism. Continue the patient's levothyroxine at a home dose. The patient's TSH was within normal limits. TIME SPENT: Approximately 60 minutes was spent on this consultation, 30 of which was spent [id number] with the patient and his family obtaining history and physical and discussing treatment plan. Thank you very much for this consultation. CONNIE CHRISTENSEN [id number]/[facility] [place]: [id number] RAFAEL
== END 2017-02-28 16:16 | disposition home or self-care (01) ==
LOC: ED 10:26
DX: N39.0 Urinary tract infection, site not specified (principal); J44.9 Chronic obstructive pulmonary disease, unspecified; R53.83 Other fatigue; E86.0 Dehydration; Z86.79 Personal history of other diseases of the circulatory system; E78.5 Hyperlipidemia, unspecified; F03.90 Unspecified dementia, unspecified severity, without behavioral disturbance, psychotic disturbance, mood disturbance, and anxiety; E03.9 Hypothyroidism, unspecified
CPT/HCPCS: 36415; 70450; 71045; 80053; 81003; 81015; 83605; 84439; 84443; 84484; 85025; 85610; 85730; 87077; 87086; 87186; 87502; 93005; 94640; 96360; 99284; A9270-GY

== ENCOUNTER 2017-05-17 23:24 | Emergency (ER) | payer MEDICARE ==
--- NOTE | 2017-05-18 00:57 | ED ---
Head Injury - HPI Summary HPI Summary: 86-year-old male presents with head injury tonight. He states that he fell on the door and the door collapsed. He denies any loss consciousness. He denies any neck pain. He denies any chest pain or shortness of breath. He claims it was mechanical fall but [facility] He has history of dementia. He is not on blood thinners. He denies any pain. He denies any upper or lower extremity pain. He denies any bowel pain. He denies any other injury. He has a laceration to the back of his scalp that has minimal bleeding. unsure when last tetanus was. - History Of Current Complaint Chief Complaint: EDHeadInjury Stated Complaint: FALL Time Seen by Provider: 05/17/17 23:33 Pain Intensity: 0 - Allergies/Home Medications Allergies/Adverse Reactions: Allergies Allergy/AdvReac Type Severity Reaction Status Date / Time No Known Allergies Allergy Verified 02/19/17 14:26 PMH/Surg Hx/FS Hx/Imm Hx Endocrine/Hematology History: Reports: Hx Thyroid Disease Denies: Hx Anticoagulant Therapy, Hx Diabetes Cardiovascular History: Reports: Hx Angina, Hx Hypercholesterolemia, Hx Hypertension, Other Cardiovascular Problems/Disorders - ANGINA Denies: Hx Congestive Heart Failure, Hx Deep Vein Thrombosis, Hx Myocardial Infarction, Hx Pacemaker/ICD Respiratory History: Reports: Hx Chronic Obstructive Pulmonary Disease (COPD) Denies: Hx Asthma, Hx Lung Cancer, Hx Pneumonia, Hx Pulmonary Embolism GI History: Reports: Hx Gastroesophageal Reflux Disease - WELL CONTROLLED Denies: Hx Gall Bladder Disease, Hx Gastrointestinal Bleed, Hx Ulcer, Hx Urosepsis History: Reports: Hx Benign Prostatic Hyperplasia, Other Problems/ Disorders - indwelling piedra Denies: Hx Kidney Stones, Hx Renal Disease Sensory History: Reports: Hx Contacts or Glasses, Hx Hearing Aid - BILAT Opthamlomology History: Reports: Hx Contacts or Glasses Neurological History: Denies: Hx Dementia, Hx Migraine, Hx Seizures, Hx Transient Ischemic Attacks (TIA) Psychiatric History: Denies: Hx Anxiety, Hx Depression, Hx Schizophrenia, Hx Bipolar Disorder - Surgical History Surgery Procedure, Year, and Place: TUR2014 Hx Anesthesia Reactions: No - Immunization History Date of Tetanus Vaccine: UTD Date of Influenza Vaccine: 11/2016 Infectious Disease History: No Infectious Disease History: Denies: Hx Clostridium Difficile, Hx Hepatitis, Hx Human Immunodeficiency Virus (HIV), Hx of Known/Suspected MRSA, Hx Shingles, Hx Tuberculosis, Hx Known/ Suspected VRE, Hx Known/Suspected VRSA, History Other Infectious Disease, Traveled Outside the US in Last 30 Days - Family History Known Family History: Positive: Cardiac Disease Family History: no fhx of malignant hyperthermia or anesthesia reaction - Social History Alcohol Use: Occasionally Hx Substance Use: No Substance Use Type: Reports: None Hx Tobacco Use: Yes Smoking Status (MU): Former Smoker Type: Cigarettes Length of Time of Smoking/Using Tobacco: 40 years Have You Smoked in the Last Year: No Review of Systems Negative: Fever Negative: Chest Pain Negative: Shortness Of Breath Positive: Other - scalp laceration Positive: Headache All Other Systems Reviewed And Are Negative: Yes Physical Exam Triage Information Reviewed: Yes Vital Signs On Initial Exam: Initial Vitals Temp Pulse Resp BP Pulse Ox 98.8 F 70 16 148/64 96 05/17/17 23:28 05/17/17 23:28 05/17/17 23:28 05/17/17 23:28 05/17/17 23:28 Vital Signs Reviewed: Yes Appearance: Positive: Well-Appearing Skin: Positive: Warm, Dry, Other - 1cm on posterior scalp by 1/4cm Head/Face: Positive: Normal Head/Face Inspection, Other - no step off, racoon eyes, treviño sign Eyes: Positive: Normal, EOMI, JANINE, Conjunctiva Clear ENT: Positive: Normal ENT inspection, Pharynx normal, TMs normal Respiratory/Lung Sounds: Positive: Clear to Auscultation, Breath Sounds Present Cardiovascular: Positive: Normal, RRR Abdomen Description: Positive: Nontender, Soft Bowel Sounds: Positive: Present Musculoskeletal: Positive: Normal, Other - nontender hips Neurological: Positive: Sensory/Motor Intact, CN Intact II-III - Napoleon Coma Scale Best Eye Response: 4 - Spontaneous Best Motor Response: 6 - Obeys Commands Best Verbal Response: 5 - Oriented Coma Scale Total: 15 Procedures - Laceration/Wound Repair 1 Location: head Description: Linear Anesthesia: Local, 1.0%, Epi Length, Depth and Shape: 2cm superficial laceration Irrigated w/ Saline (ccs): 100 Closure: [place] #__ - 2 Diagnostics - Vital Signs Vital Signs Temp Pulse Resp BP Pulse Ox 04/04/18 23:28 98.8 F 70 16 148/64 96 - Laboratory Lab Statement: Any lab studies that have been ordered have been reviewed, and results considered in the medical decision making process. - CT brain CT Interpretation: No Acute Changes CT Interpretation Completed By: Radiologist neck CT Interpretation: No Acute Changes - no definite fracture but unable to see C1- C2 recommend repeat imaging CT Interpretation Completed By: Radiologist Head Injury Course/Dx Course Of Treatment: 86-year-old male presents with head injury tonight. He states that he fell on the door and the door collapsed. He denies any loss consciousness. He denies any neck pain. He denies any chest pain or shortness of breath. He claims it was mechanical fall but [facility]. He has history of dementia. He is not on blood thinners. He denies any pain. He denies any upper or lower extremity pain. He denies any bowel pain. He denies any other injury. He has a laceration to the back of his scalp that has minimal bleeding. unsure when last tetanus was. on exam normal neuro exam. has 1cm laceration to back of scalp. placed [address] brain normal[address] CT neck unable to see C1-C2 so will get another scan. CT scan normal. told to keep area clean. told to follow up with primary. patient understand and agrees with plan. - Diagnoses Differential Diagnosis/HQI/PQRI: Concussion Without LOC, Contusion, Intracranial Bleed, Laceration Provider Diagnoses: Fall, Head injury, Scalp laceration Discharge - Sign-Out/Discharge Documenting (check all that apply): Discharge - Discharge Plan Condition: Stable Disposition: HOME Patient Education Materials: Head Injury (ED), Staple Care (ED) Referrals: Nav Feng MD [Primary Care Provider] - Additional Instructions: Take Tylenol for pain every 6 hours as needed Do not scrub staple area Return to ED, urgent care or primary in 7-10 days to have yesica removed Follow up with primary within 5 days Return to ED if develop signs of infection such as fever, spreading redness, or pus or any new or worsening symptoms - Billing Disposition and Condition Condition: STABLE Disposition: HOME
[2017-05-18 03:10] VITALS: BP 160/72
--- NOTE | 2017-05-18 07:42 | RAD ---
HISTORY: Fall, head injury COMPARISONS: February 28, 2017 TECHNIQUE: Multiple contiguous axial CT scans were obtained of the head without intravenous contrast. FINDINGS: The study is limited by patient motion artifact. HEMORRHAGE/INFARCT: There is no hemorrhage or acute infarct. MASSES/SHIFT: There is no mass or shift. EXTRA-AXIAL SPACES: There are no extra-axial fluid collections. SULCI AND VENTRICLES: The sulci and ventricles are normal in size and position for the patient's stated age. CEREBRUM: There is hypoattenuation of the periventricular and subcortical white matter. BRAINSTEM: There are no focal parenchymal abnormalities. CEREBELLUM: There are no focal parenchymal abnormalities. VESSELS: There is calcification of the cavernous segments of the internal carotid arteries bilaterally and of the distal vertebral arteries bilaterally. PARANASAL SINUSES: There is mucosal thickening in partial opacification of ethmoid air cells. ORBITS: The orbits are unremarkable. BONES AND SOFT TISSUE: There is a chronic medial orbital wall fracture on the right. OTHER: None IMPRESSION: NO ACUTE INTRACRANIAL PATHOLOGY.
--- NOTE | 2017-05-18 07:47 | RAD ---
Indication: Fall, neck injury. CT of the cervical spine was obtained in the axial plane. Sagittal and coronal reconstructed images were obtained. The skull base demonstrates mastoid air cells to be well aerated. No fracture is noted. There is calcification of the transverse ligament. The C1 ring is intact. Degenerative changes of the atlantoaxial joint is noted. Motion artifact limits images of the C1-C2. A repeat of the C1-C2 level demonstrates no fracture. There is grade 1 spondylolisthesis of C3 on 4. This is due to facet hypertrophy. Degenerative disc disease at C5-C6, C6-C7 and C7-T1 without fracture. Bilateral facet arthropathy is noted. There appears to be bilateral foraminal stenosis at C4-C5, C5-C6 and C6-C7. No rib injury is noted. Lung apices are unremarkable. IMPRESSION: Degenerative disc disease at C4-C5, C5-C6 and C6-C7 without fracture. Degenerative changes of the atlantoaxial joint is noted.
== END 2017-05-18 02:50 | disposition home or self-care (01) ==
LOC: ED 23:24
DX: S01.01XA Laceration without foreign body of scalp, initial encounter (principal); W19.XXXA Unspecified fall, initial encounter; Y93.9 Activity, unspecified; Y92.9 Unspecified place or not applicable; Z87.09 Personal history of other diseases of the respiratory system; Z87.891 Personal history of nicotine dependence; R51 Headache
CPT/HCPCS: 12011; 70450; 72125; 99282

== ENCOUNTER 2017-07-20 14:15 | Emergency (ER) | payer MEDICARE ==
[2017-07-20] MEDS ORDERED: Ciprofloxacin 400MG IVPREMIX(* 400 MG/200 ML BAG IVPB ONE (15:08)
--- NOTE | 2017-07-20 16:30 | ED ---
Jayro Ram Stephanie, scribed for Stan Bennett MD on 07/20/17 at 1507 . GI/ HPI - HPI Summary HPI Summary: The pt is an 87 y/o M BIBA to the ED with c/o UTI that began at 14:20 on . Per medical records, the pt had a urine test and culture completed by PCP Dr. Cox 2 days ago. Pseudomonas was founds in the culture. Per son, the pt denies fevers, nausea and vomiting. The pt denies any physical pain. - History of Current Complaint Chief Complaint: EDUrogenitalProblems Time Seen by Provider: 07/20/17 14:56 Stated Complaint: UTI PER PCP-NEEDS IV ANTIBIOTICS Hx Obtained From: Family/Engineering Test Specialist - son, Medical Records Hx From Patient Unobtainable Due To: Dementia Onset/Duration: Started Days Ago Timing: Constant Current Severity: None Pain Intensity: 0 Associated Signs and Symptoms: Positive: UTI Symptoms. Negative: Nausea, Vomiting, Fever Aggravating Factor(s): Nothing Alleviating Factor(s): Nothing - Additional Pertinent History Primary Care Physician: [id number] - Allergy/Home Medications Allergies/Adverse Reactions: Allergies Allergy/AdvReac Type Severity Reaction Status Date / Time No Known Allergies Allergy Verified 07/20/17 14:21 Home Medications: Home Medications Acetaminophen TAB* [Tylenol TAB*] 650 mg PO BID 07/20/17 [History Confirmed 08/30] Budesonide/Formote 160/4.5(NF) [Symbicort 160/4.5 (NF)] 1 puff INH BID 07/20/17 [History Confirmed 07/20/17] Furosemide TAB* [Lasix TAB*] 40 mg PO DAILY 07/20/17 [History Confirmed 07/20/17 ] Melatonin (NF) 5 mg PO BEDTIME 07/20/17 [History Confirmed 07/20/17] Polyethylene Glycol 3350* [Miralax*] 17 gm PO MOWEFR 07/20/17 [History Confirmed 07/20/17] PMH/Surg Hx/FS Hx/Imm Hx Endocrine/Hematology History: Reports: Hx Thyroid Disease Denies: Hx Anticoagulant Therapy, Hx Diabetes Cardiovascular History: Reports: Hx Angina, Hx Hypercholesterolemia, Hx Hypertension, Other Cardiovascular Problems/Disorders - ANGINA Denies: Hx Congestive Heart Failure, Hx Deep Vein Thrombosis, Hx Myocardial Infarction, Hx Pacemaker/ICD Respiratory History: Reports: Hx Chronic Obstructive Pulmonary Disease (COPD) Denies: Hx Asthma, Hx Lung Cancer, Hx Pneumonia, Hx Pulmonary Embolism GI History: Reports: Hx Gastroesophageal Reflux Disease - WELL CONTROLLED Denies: Hx Gall Bladder Disease, Hx Gastrointestinal Bleed, Hx Ulcer, Hx Urosepsis History: Reports: Hx Benign Prostatic Hyperplasia, Other Problems/ Disorders - indwelling piedra Denies: Hx Kidney Stones, Hx Renal Disease Sensory History: Reports: Hx Contacts or Glasses, Hx Hearing Aid - BILAT Opthamlomology History: Reports: Hx Contacts or Glasses Neurological History: Denies: Hx Dementia, Hx Migraine, Hx Seizures, Hx Transient Ischemic Attacks (TIA) Psychiatric History: Denies: Hx Anxiety, Hx Depression, Hx Schizophrenia, Hx Bipolar Disorder - Surgical History Surgery Procedure, Year, and Place: TURP 2014 Hx Anesthesia Reactions: No - Immunization History Date of Tetanus Vaccine: UTD Date of Influenza Vaccine: 11/2016 Infectious Disease History: No Infectious Disease History: Denies: Hx Clostridium Difficile, Hx Hepatitis, Hx Human Immunodeficiency Virus (HIV), Hx of Known/Suspected MRSA, Hx Shingles, Hx Tuberculosis, Hx Known/ Suspected VRE, Hx Known/Suspected VRSA, History Other Infectious Disease, Traveled Outside the US in Last 30 Days - Family History Known Family History: Positive: Cardiac Disease Family History: no fhx of malignant hyperthermia or anesthesia reaction - Social History Occupation: Retired Lives: [facility] [place] Alcohol Use: Occasionally Hx Substance Use: No Substance Use Type: Reports: None Hx Tobacco Use: Yes Smoking Status (MU): Former Smoker Type: Cigarettes Length of Time of Smoking/Using Tobacco: 40 years Have You Smoked in the Last Year: No Review of Systems Negative: Fever Negative: Vomiting, Nausea Negative: Slurred Speech All Other Systems Reviewed And Are Negative: Yes Physical Exam - Summary Physical Exam Summary: Appearance: Well appearing, no pain distress, uncircumcised Skin: warm, dry, reflects adequate perfusion Head/face: normal Eyes: EOMI, JANINE ENT: normal Neck: supple, non-tender Respiratory: CTA, breath sounds present Cardiovascular: RRR, pulses symmetrical Abdomen: non-tender, soft Bowel Sounds: present Musculoskeletal: strength/ROM intact, 1+ LE edema bilaterally Neuro: normal, sensory motor intact, Awake and alert, confused, GCS: 14 Triage Information Reviewed: Yes Vital Signs On Initial Exam: Initial Vitals Temp Pulse Resp BP Pulse Ox 98.4 F 74 16 138/54 94 07/20/17 14:19 07/20/17 14:19 07/20/17 14:19 07/20/17 14:19 07/20/17 14:19 Vital Signs Reviewed: Yes Diagnostics - Vital Signs Vital Signs Temp Pulse Resp BP Pulse Ox 07/20/17 14:19 98.4 F 74 16 138/54 94 - Laboratory Lab Statement: Any lab studies that have been ordered have been reviewed, and results considered in the medical decision making process. GIGU Course/Dx - Course Course Of Treatment: Vision currently without symptoms. He does have advanced dementia. He has recurrent UTIs and is uncircumcised. His urine showed absent bacteria and 2+ leukocytes from 07/18/17. A culture was done of the urine and proved to be pseudomonas. It was sensitive to a number of antibiotics including Cipro. He is given a dose of IV Cipro here at the urging of his family physician. He will be continued on the same outpatient while in the [facility]. He has normal renal function. - Diagnoses Differential Diagnoses - Male: Other - Patient with known pseudomonas urinary tract infection without delirium, fever. Provider Diagnoses: Recurrent UTI (urinary tract infection), Uncircumcised male, Advanced dementia Discharge - Sign-Out/Discharge Documenting (check all that apply): Discharge/Admit/Transfer - Discharge - Discharge Plan Condition: Good Disposition: [facility] Prescriptions: Ciprofloxacin TAB* [Cipro 500 MG TAB*] 500 mg PO BID #10 tab Patient Education Materials: Urinary Tract Infection in Men (ED) Referrals: Nav Feng MD [Primary Care Provider] - Xander Augustine MD [Medical Doctor] - Additional Instructions: Patient returned to [place]. Urologist may consider performing dorsal slit procedure to prevent recurrent UTI. Conversely, he may believe that the patient is colonized with pseudomonas and that these findings do not represent acute urinary tract infection. Return with fever, alteration in mental status or other concerns. - Billing Disposition and Condition Condition: GOOD [facility] The documentation as recorded by the Jayro foster Stephanie accurately reflects the service I personally performed and the decisions made by , Stan Bennett MD.
[2017-07-20 16:48] VITALS: BP 148/63
== END 2017-07-20 16:40 ==
LOC: ED 14:15
DX: N39.0 Urinary tract infection, site not specified (principal); B96.5 Pseudomonas (aeruginosa) (mallei) (pseudomallei) as the cause of diseases classified elsewhere; F03.90 Unspecified dementia, unspecified severity, without behavioral disturbance, psychotic disturbance, mood disturbance, and anxiety; I10 Essential (primary) hypertension; J44.9 Chronic obstructive pulmonary disease, unspecified; Z79.899 Other long term (current) drug therapy; Z87.891 Personal history of nicotine dependence
CPT/HCPCS: 96360; 99283; J0744

== ENCOUNTER 2017-08-13 17:39 | Emergency (ER) | payer MEDICARE ==
[2017-08-13] MEDS ORDERED: NS 0.9% 1000 ML* 1,000 ML IV SCH (18:15)
[2017-08-13 18:32] LABS: ABS Basophils 0.1 10^3/ul (0-0.2); ABS Eosinophils 0.2 10^3/ul (0-0.6); ABS Lymphocytes 1.1 10^3/ul (1.0-4.8); ABS Monocytes 0.5 10^3/ul (0-0.8); ABS Nucleated RBC 0 10^3/ul; Eosinophil % 2.2 % (0-6); Hematocrit 37 % (42-52); Hemoglobin 12.8 g/dl (14.0-18.0); Lymphocyte % 13.9 % (25-47); Mean Corpuscular HGB Conc 34 g/dl (31-36); Mean Corpuscular Hemoglobin 32 pg (27-31); Mean Corpuscular Volume 95 fL (80-94); Nucleated Red Blood Cells % 0.1; Platelet Count 264 10^3/ul (150-450); Red Blood Count 3.94 10^6/ul (4.00-5.40); Red Cell Distribution Width 15 % (10.5-15); White Blood Count 7.9 10^3/ul (3.5-10.8)
[2017-08-13 18:37] LABS: INR 0.9 (0.77-1.02)
[2017-08-13 18:49] LABS: EGFR Non-African American 73.9 (>60)
--- NOTE | 2017-08-13 18:52 | ED ---
Leticia Ram SooYoung, scribed for Jaxson Gutiérrez MD on 08/13/17 at 1805 . 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 At bedside, pt states I dont need to be here, theres nothing wrong with me. Pt denies pain, fever, chills at bedside. (Temp at bedside is 100.6 F). Pt denies recent falls, says his last fall was 3 months ago. Per EMS: pt shuffles when he ambulates, but do not think it's an acute change. At correction, pt complained of R hip pain. - History Of Current Complaint Chief Complaint: EDExtremityLower Time Seen by Provider: 08/13/17 17:59 Hx Obtained From: Patient, EMS Associated Signs And Symptoms: Positive: Other - Fever 100.6 F; neg: chills, pain. - Allergies/Home Medications Allergies/Adverse Reactions: Allergies Allergy/AdvReac Type Severity Reaction Status Date / Time No Known Allergies Allergy Verified 08/13/17 18:00 PMH/Surg Hx/FS Hx/Imm Hx Previously Healthy: No Endocrine/Hematology History: Reports: Hx Thyroid Disease Denies: Hx Anticoagulant Therapy, Hx Diabetes Cardiovascular History: Reports: Hx Angina, Hx Hypercholesterolemia, Hx Hypertension, Other Cardiovascular Problems/Disorders - ANGINA Denies: Hx Congestive Heart Failure, Hx Deep Vein Thrombosis, Hx Myocardial Infarction, Hx Pacemaker/ICD Respiratory History: Reports: Hx Chronic Obstructive Pulmonary Disease (COPD) Denies: Hx Asthma, Hx Lung Cancer, Hx Pneumonia, Hx Pulmonary Embolism GI History: Reports: Hx Gastroesophageal Reflux Disease - WELL CONTROLLED Denies: Hx Gall Bladder Disease, Hx Gastrointestinal Bleed, Hx Ulcer, Hx Urosepsis History: Reports: Hx Benign Prostatic Hyperplasia, Other Problems/ Disorders - indwelling piedra Denies: Hx Kidney Stones, Hx Renal Disease Sensory History: Reports: Hx Contacts or Glasses, Hx Hearing Aid - BILAT Opthamlomology History: Reports: Hx Contacts or Glasses Neurological History: Denies: Hx Dementia, Hx Migraine, Hx Seizures, Hx Transient Ischemic Attacks (TIA) Psychiatric History: Denies: Hx Anxiety, Hx Depression, Hx Schizophrenia, Hx Bipolar Disorder - Surgical History Surgery Procedure, Year, and Place: TUR2014 Hx Anesthesia Reactions: No - Immunization History Date of Tetanus Vaccine: UTD Date of Influenza Vaccine: 11/2016 Infectious Disease History: No Infectious Disease History: Denies: Hx Clostridium Difficile, Hx Hepatitis, Hx Human Immunodeficiency Virus (HIV), Hx of Known/Suspected MRSA, Hx Shingles, Hx Tuberculosis, Hx Known/ Suspected VRE, Hx Known/Suspected VRSA, History Other Infectious Disease, Traveled Outside the [place] in Last 30 Days - Family History Known Family History: Positive: Cardiac Disease Family History: no fhx of malignant hyperthermia or anesthesia reaction - Social History Occupation: Retired [facility] Alcohol Use: Rare Hx Substance Use: No Substance Use Type: Reports: None Hx Tobacco Use: Yes Smoking Status (MU): Former Smoker Type: Cigarettes Length of Time of Smoking/Using Tobacco: 40 years Have You Smoked in the Last Year: No Review of Systems Positive: Fever. Negative: Chills Positive: Other - Pt denies pain at bedside All Other Systems Reviewed And Are Negative: Yes Physical Exam - Summary Physical Exam Summary: Pt is pleasantly demented and states no complaints. General: well-appearing, no pain distress Skin: warm, color reflects adequate perfusion, dry Head: normal Eyes: EOMI, JANINE ENT: normal Neck: supple, nontender Respiratory: CTA, breath sounds present Cardiovascular: RRR Abdomen: soft, nontender Bowel: present Musculoskeletal: normal, strength/ROM intact Neurological: sensory/motor intact, A&O x3 Psychological: affect/mood appropriate Triage Information Reviewed: Yes Vital Signs On Initial Exam: Initial Vitals Temp Pulse Resp BP Pulse Ox 100.6 F 90 16 151/57 93 08/13/17 17:43 08/13/17 17:43 08/13/17 17:43 08/13/17 17:43 08/13/17 17:43 Vital Signs Reviewed: Yes Diagnostics - Vital Signs Vital Signs Temp Pulse Resp BP Pulse Ox 08/13/17 17:50 89 151/57 93 08/13/17 17:49 90 93 08/13/17 17:43 100.6 F 90 16 151/57 93 - Laboratory Lab Results: Lab Results 08/13/17 08/13/17 08/13/17 Range/Units 18:23 18:23 18:23 WBC 7.9 (3.5-10.8) 10^3/ul RBC 3.94 L (4.00-5.40) 10^6/ul Hgb 12.8 L (14.0-18.0) g/dl Hct 37 L (42-52) % MCV 95 H (80-94) fL MCH 32 H (27-31) pg MCHC 34 (31-36) g/dl RDW 15 (10.5-15) % Plt Count 264 (150-450) 10^3/ul MPV 8.0 (7.4-10.4) um3 Neut % (Auto) 76.4 (38-83) % Lymph % (Auto) 13.9 L (25-47) % [place] % (Auto) 6.3 (0-7) % Eos % (Auto) 2.2 (0-6) % Baso % (Auto) 1.2 (0-2) % Absolute Neuts (auto) 6.0 (1.5-7.7) 10^3/ul Absolute Lymphs (auto) 1.1 (1.0-4.8) 10^3/ul Absolute Monos (auto) 0.5 (0-0.8) 10^3/ul Absolute Eos (auto) 0.2 (0-0.6) 10^3/ul Absolute Basos (auto) 0.1 (0-0.2) 10^3/ul Absolute Nucleated RBC 0 10^3/ul Nucleated RBC % 0.1 INR (Anticoag Therapy) 0.90 (0.77-1.02) APTT 32.0 (26.0-36.3) seconds Sodium 137 (135-145) mmol/L Potassium 3.9 (3.5-5.0) mmol/L Chloride 101 (101-111) mmol/L Carbon Dioxide 28 (22-32) mmol/L Anion Gap 8 (2-11) mmol/L BUN 25 H (6-24) mg/dL Creatinine 0.96 (0.67-1.17) mg/dL Est GFR ( Amer) 89.4 (>60) Est GFR (Non-Af Amer) 73.9 (>60) BUN/Creatinine Ratio 26.0 H (8-20) Glucose 90 (70-100) mg/dL Lactic Acid (0.5-2.0) mmol/L Calcium 9.4 (8.6-10.3) mg/dL Total Bilirubin 0.80 (0.2-1.0) mg/dL AST 20 (13-39) U/L ALT 17 (7-52) U/L Alkaline Phosphatase 92 (34-104) U/L C-Reactive Protein 10.42 H (<8.01) mg/L Total Protein 6.7 (6.4-8.9) g/dL Albumin 3.9 (3.2-5.2) g/dL Globulin 2.8 (2-4) g/dL Albumin/Globulin Ratio 1.4 (1-3) Lipase 10 L (11.0-82.0) U/L 08/13/17 Range/Units 18:23 WBC (3.5-10.8) 10^3/ul RBC (4.00-5.40) 10^6/ul Hgb (14.0-18.0) g/dl Hct (42-52) % MCV (80-94) fL MCH (27-31) pg MCHC (31-36) g/dl RDW (10.5-15) % Plt Count (150-450) 10^3/ul MPV (7.4-10.4) um3 Neut % (Auto) (38-83) % Lymph % (Auto) (25-47) % [place] % (Auto) (0-7) % Eos % (Auto) (0-6) % Baso % (Auto) (0-2) % Absolute Neuts (auto) (1.5-7.7) 10^3/ul Absolute Lymphs (auto) (1.0-4.8) 10^3/ul Absolute Monos (auto) (0-0.8) 10^3/ul Absolute Eos (auto) (0-0.6) 10^3/ul Absolute Basos (auto) (0-0.2) 10^3/ul Absolute Nucleated RBC 10^3/ul Nucleated RBC % INR (Anticoag Therapy) (0.77-1.02) APTT (26.0-36.3) seconds Sodium (135-145) mmol/L Potassium (3.5-5.0) mmol/L Chloride (101-111) mmol/L Carbon Dioxide (22-32) mmol/L Anion Gap (2-11) mmol/L BUN (6-24) mg/dL Creatinine (0.67-1.17) mg/dL Est GFR ( Amer) (>60) Est GFR (Non-Af Amer) (>60) BUN/Creatinine Ratio (8-20) Glucose (70-100) mg/dL Lactic Acid 0.8 (0.5-2.0) mmol/L Calcium (8.6-10.3) mg/dL Total Bilirubin (0.2-1.0) mg/dL AST (13-39) U/L ALT (7-52) U/L Alkaline Phosphatase (34-104) U/L C-Reactive Protein (<8.01) mg/L Total Protein (6.4-8.9) g/dL Albumin (3.2-5.2) g/dL Globulin (2-4) g/dL Albumin/Globulin Ratio (1-3) Lipase (11.0-82.0) U/L Result Diagrams: 08/13/17 18:23 08/13/17 18:23 Lab Statement: Any lab studies that have been ordered have been reviewed, and results considered in the medical decision making process. - EKG 1817 Cardiac Rate: NL - 81 bpm EKG Rhythm: Sinus Rhythm Ectopy: None EKG Interpretation: RBBB and LAFB EKG Comparison: No Significant Change - from 02/28/18 Complex Multi-Symp Course/Dx Course Of Treatment: DISPOSITION PENDING AT SHIFT CHANGE - Diagnoses Provider Diagnoses: Falls, Fever Discharge - Sign-Out/Discharge Documenting (check all that apply): Sign-Out Patient Signing out patient TO: Shea Auguste - Pending imaging results - Discharge Plan Condition: Stable Referrals: Nav Feng MD [Primary Care Provider] - - Billing Disposition and Condition Condition: STABLE The documentation as recorded by the Leticia foster SooYoung accurately reflects the service I personally performed and the decisions made by me, Jaxson Gutiérrez MD.
--- NOTE | 2017-08-13 19:13 | RAD ---
Indication: Fall, head injury. CT of the brain was performed without IV contrast. Ventricular structures are midline. No midline shift is noted. Central and cortical atrophy is noted. There is no evidence of intracranial mass or hemorrhage. No other high or low density lesions identified. Overall no changes noted since May 18, 2017. The bony structures including mastoid air cells and paranasal sinuses are otherwise unremarkable. IMPRESSION: Atrophy. No intracranial mass or hemorrhage is noted.
--- NOTE | 2017-08-13 19:44 | RAD ---
Indication: Fall, head injury. CT of the cervical spine was obtained in the axial plane. Sagittal and coronal reconstructed images were obtained. The skull base demonstrates no fracture. The C1 ring is intact. Calcification of the transverse ligament is noted. No fracture of the odontoid process is noted. C2 vertebra is intact. At C2-C3 degenerative disc disease is noted. Left facet hypertrophy is noted. At C3-C4 there is minimal grade 1 spinal listhesis noted. Spondylitic ridge with bilateral uncovertebral joint hypertrophy narrows both foramen. No fractures noted. At C4-C5 spondylitic ridge flattens the thecal sac. No fracture is noted. No central or foraminal stenosis is At C6-C7 spondylitic ridge flattens the thecal sac. Bilateral uncovertebral joint hypertrophy no is noted. No definite foraminal or central stenosis is noted. At C6-C7 spondylitic ridge flattens the thecal sac. No central or foraminal stenosis is noted. Degenerative disc disease is noted at C7-T1 with grade 1 spondylolisthesis. IMPRESSION: Multilevel degenerative disc disease without evidence of fracture.
--- NOTE | 2017-08-13 19:45 | RAD ---
Indication: Fall, hip pain. 2 views of the pelvis demonstrates pelvic ring to be intact. Degenerative changes of the sacroiliac joint is also noted. No fractures identified. Atherosclerosis is noted of the great vessels. IMPRESSION: No fracture of the pelvis is noted.
--- NOTE | 2017-08-13 19:48 | RAD ---
Indication: Fall. Single frontal view of the chest performed at 1918 hours was reviewed. Comparison is made with previous exam dated February 28, 2017. No mediastinal shift is noted. Heart is of normal size and configuration. Lung pendleton appear clear. IMPRESSION: NO ACTIVE CARDIOPULMONARY DISEASE IS NOTED.
[2017-08-13 20:13] LABS: Urine Appearance Clear; Urine Blood Negative (Negative); Urine Color Straw; Urine Ketones Negative (Negative); Urine Protein Negative (Negative); Urine Specific Gravity 1.009 (1.010-1.030); Urine Urobilinogen Negative (Negative)
[2017-08-13 20:42] VITALS: BP 150/78
--- NOTE | 2017-08-13 20:51 | ED ---
Margarita Ram Gabriel, scribed for Shea Auguste MD on 08/13/17 at 2025 . Progress - Progress Note Progress Note: This patient was signed out from Dr. Gutiérrez awaiting imagining and dispo. Pelvis XR reveals, per radiologist, No fracture of the pelvis is noted. ED physician has reviewed this radiology report. CT C spine reveals, per radiologist, Multilevel degenerative disc disease without evidence of fracture. ED physician has reviewed this radiology report. CT Brain reveals, per radiologist, Atrophy. No intracranial mass or hemorrhage is noted. ED physician has reviewed this radiology report. CXR reveals, per radiologist, NO ACTIVE CARDIOPULMONARY DISEASE IS NOTED. ED physician has reviewed this radiology report. Re-Evaluation - Re-Evaluation First Eval Re-Evaluation Time: 20:31 Change: Improved Comment: The pt has no fever at this time and was not given any tylenol. His daughter is at [facility] and he has no complaints. Course/Dx - Diagnoses Provider Diagnoses: Accident due to mechanical fall without injury Discharge - Sign-Out/Discharge Documenting (check all that apply): Discharge/Admit/Transfer, Receiving Sign-Out Receiving patient FROM: Jaxson Gutiérrez - Discharge Plan Condition: Stable Disposition: HOME Patient Education Materials: Fall Prevention (ED) Referrals: Nav Feng MD [Primary Care Provider] - 3 Days Additional Instructions: RETURN TO THE ER FOR ANY NEW OR WORSENING SYMPTOMS The documentation as recorded by the Margarita foster Gabriel accurately reflects the service I personally performed and the decisions made by , Shea Auguste MD.
== END 2017-08-13 20:46 | disposition home or self-care (01) ==
LOC: ED 17:39
DX: R50.9 Fever, unspecified (principal); I45.2 Bifascicular block; M50.33 Other cervical disc degeneration, cervicothoracic region; Z91.81 History of falling; Z87.891 Personal history of nicotine dependence
CPT/HCPCS: 36415; 70450; 71045; 72125; 72170; 80053; 81003; 81015; 83605; 83690; 83880; 85025; 85610; 85730; 86140; 87077; 87086; 93005; 99283

== ENCOUNTER 2017-08-14 14:03 | Emergency (ER) | payer MEDICARE ==
[2017-08-14 14:16] VITALS: BP 131/69
--- NOTE | 2017-08-14 15:19 | ED ---
Complex/Multi-Sys Presentation - HPI Summary HPI Summary: Pt with Hx of dementia, Pt from [facility], Brought in for fall eval by staff because he is not using his walker. No LOC, did not hit head. EMS brought in from ambulance. Family is at bedside. Family states he is at his baseline. He is in no acute distress. Alert and oriented 3. Denies fevers, sweats, chills or other recent illness. Recently started on a new medication a few days ago which could have made him more unsteady on his feet. However, he states since he did not use his walker is why he fell down. Family states they would prefer not to have CT scans or labs at this time unless it is deemed necessary. Denies any anticoagulants. Does not feel that he hit his head. He recalls all the events and states he has no confusion, memory loss or visual changes. - History Of Current Complaint Chief Complaint: EDGeneral Time Seen by Provider: 08/14/17 14:13 Hx Obtained From: Patient Onset/Duration: Sudden Onset Timing: Constant Severity Currently: None Location: Negative - Allergies/Home Medications Allergies/Adverse Reactions: Allergies Allergy/AdvReac Type Severity Reaction Status Date / Time No Known Allergies Allergy Verified 08/13/17 18:00 Home Medications: Home Medications Acetaminophen TAB* [Tylenol TAB*] 650 mg PO BID 08/14/17 [History Confirmed 04/02] Albuterol HFA INHALER* [Ventolin HFA Inhaler*] 2 puff INH BID PRN 08/14/17 [ History Confirmed 08/14/17] Budesonide/Formote 160/4.5(NF) [Symbicort 160/4.5 (NF)] 1 puff INH BID 08/14/17 [History Confirmed 08/14/17] Citalopram TAB* [CeleXA TAB*] 20 mg PO DAILY 08/14/17 [History Confirmed ] Cyanocobalamin TAB* [Vitamin B12 TAB*] 1,000 mcg PO DAILY 08/14/17 [History Confirmed 08/14/17] Doxazosin TAB* [Cardura TAB*] 4 mg PO BEDTIME 08/14/17 [History Confirmed ] Furosemide TAB* [Lasix TAB*] 40 mg PO DAILY 08/14/17 [History Confirmed 08/14/17 ] Levothyroxine TAB* [Synthroid TAB*] 150 mcg PO DAILY 08/14/17 [History Confirmed 08/14/17] Melatonin (NF) 5 mg PO BEDTIME 08/14/17 [History Confirmed 08/14/17] Methenamine Hippurate TAB* [Hiprex TAB*] 1 gm PO DAILY 08/14/17 [History Confirmed 08/14/17] Polyethylene Glycol 3350* [Miralax*] 17 gm PO EVERY OTHER DAY 08/14/17 [History Confirmed 08/14/17] QUEtiapine TAB* [Seroquel 25 MG TAB*] 25 mg PO QAM 08/14/17 [History Confirmed 08/14/17] Simvastatin TAB(NF) [Zocor(NF)] 20 mg PO BEDTIME 08/14/17 [History Confirmed 04/02] Tiotropium CAP.INH* [Spiriva CAP.INH*] 1 cap.inh INH DAILY 08/14/17 [History Confirmed 08/14/17] amLODIPine TAB* [Norvasc 5 mg TAB*] 5 mg PO DAILY 08/14/17 [History Confirmed ] PMH/Surg Hx/FS Hx/Imm Hx Previously Healthy: Yes Endocrine/Hematology History: Reports: Hx Thyroid Disease Denies: Hx Anticoagulant Therapy, Hx Diabetes Cardiovascular History: Reports: Hx Angina, Hx Hypercholesterolemia, Hx Hypertension, Other Cardiovascular Problems/Disorders - ANGINA Denies: Hx Congestive Heart Failure, Hx Deep Vein Thrombosis, Hx Myocardial Infarction, Hx Pacemaker/ICD Respiratory History: Reports: Hx Chronic Obstructive Pulmonary Disease (COPD) Denies: Hx Asthma, Hx Lung Cancer, Hx Pneumonia, Hx Pulmonary Embolism GI History: Reports: Hx Gastroesophageal Reflux Disease - WELL CONTROLLED Denies: Hx Gall Bladder Disease, Hx Gastrointestinal Bleed, Hx Ulcer, Hx Urosepsis History: Reports: Hx Benign Prostatic Hyperplasia, Other Problems/ Disorders - indwelling piedra Denies: Hx Kidney Stones, Hx Renal Disease Sensory History: Reports: Hx Contacts or Glasses, Hx Hearing Aid - BILAT Opthamlomology History: Reports: Hx Contacts or Glasses Neurological History: Denies: Hx Dementia, Hx Migraine, Hx Seizures, Hx Transient Ischemic Attacks (TIA) Psychiatric History: Denies: Hx Anxiety, Hx Depression, Hx Schizophrenia, Hx Bipolar Disorder - Surgical History Surgery Procedure, Year, and Place: TURP 2014 Hx Anesthesia Reactions: No - Immunization History Date of Tetanus Vaccine: UTD Date of Influenza Vaccine: 11/2016 Hx Pertussis Vaccination: No Immunizations Up to Date: Unable to Obtain/Confirm Infectious Disease History: No Infectious Disease History: Denies: Hx Clostridium Difficile, Hx Hepatitis, Hx Human Immunodeficiency Virus (HIV), Hx of Known/Suspected MRSA, Hx Shingles, Hx Tuberculosis, Hx Known/ Suspected VRE, Hx Known/Suspected VRSA, History Other Infectious Disease, Traveled Outside the [place] in Last 30 Days - Family History Known Family History: Positive: Cardiac Disease Family History: no fhx of malignant hyperthermia or anesthesia reaction - Social History Occupation: Unemployed Lives: [facility] - R Alcohol Use: Rare Hx Substance Use: No Substance Use Type: Reports: None Hx Tobacco Use: Yes Smoking Status (MU): Former Smoker Type: Cigarettes Length of Time of Smoking/Using Tobacco: 40 years Have You Smoked in the Last Year: No Review of Systems Constitutional: Negative Negative: Fever, Chills, Fatigue, Skin Diaphoresis Negative: Palpitations, Chest Pain Negative: Shortness Of Breath, Cough Genitourinary: Negative Positive: no symptoms reported, see HPI Negative: Arthralgia, Myalgia Negative: Rash, Bruising Neurological: Negative All Other Systems Reviewed And Are Negative: Yes Physical Exam Triage Information Reviewed: Yes Vital Signs On Initial Exam: Initial Vitals Temp Pulse Resp BP Pulse Ox 98.1 F 84 16 131/69 99 08/14/17 14:12 08/14/17 14:12 08/14/17 14:12 08/14/17 14:12 08/14/17 14:12 Vital Signs Reviewed: Yes Appearance: Positive: Well-Appearing, Well-Nourished Skin: Positive: Warm, Skin Color Reflects Adequate Perfusion Head/Face: Positive: Normal Head/Face Inspection Eyes: Positive: EOMI, JANINE, Conjunctiva Clear Neck: Positive: Supple, No Lymphadenopathy Respiratory/Lung Sounds: Positive: Clear to Auscultation, Breath Sounds Present Cardiovascular: Positive: RRR, Pulses are Symmetrical in both Upper and Lower Extremities Musculoskeletal: Positive: Normal, Strength/ROM Intact - log rolled patient without pain Neurological: Positive: Speech Normal Psychiatric: Positive: Normal, Affect/Mood Appropriate AVPU Assessment: Alert Diagnostics - Vital Signs Vital Signs Temp Pulse Resp BP Pulse Ox 08/14/17 14:12 98.1 F 84 16 131/69 99 - Laboratory Lab Statement: Any lab studies that have been ordered have been reviewed, and results considered in the medical decision making process. Complex Multi-Symp Course/Dx Course Of Treatment: Course of treatment, the patient is evaluated s/p fall. . Family at bedside states they would prefer not to have CT scans for lab work unless it is deemed necessary. Patient was here a few days ago and has had negative hip x-rays. He denies any hip pain on this visit. Denies any confusion, memory loss, visual changes. Patient is at his baseline per patient. He is a and O 3 and denies any complaints. In no acute distress. Patient will be discharged back to [facility] at this time. - Diagnoses Provider Diagnoses: Fall Discharge - Sign-Out/Discharge Documenting (check all that apply): Discharge/Admit/Transfer - Discharge Plan Condition: Stable Disposition: HOME Referrals: Nav Feng MD [Primary Care Provider] - Additional Instructions: No findings of hip discomfort You seem to be at your baseline. No changes/images/labs needed at this time. - Billing Disposition and Condition Condition: STABLE Disposition: Home
== END 2017-08-14 15:04 | disposition home or self-care (01) ==
LOC: ED 14:03
DX: Z91.81 History of falling (principal); Z87.891 Personal history of nicotine dependence; I10 Essential (primary) hypertension; Z87.09 Personal history of other diseases of the respiratory system
CPT/HCPCS: 99282

== ENCOUNTER 2017-08-29 22:11 | Emergency (ER) | payer MEDICARE ==
[2017-08-30] MEDS ORDERED: Acetaminophen ADULT LIQ* 650 MG/20.3 ML UDC PO ONE (00:39)
[2017-08-30] MEDS ORDERED: Acetaminophen ADULT LIQ* 650 MG/20.3 ML UDC ONE (00:41)
--- NOTE | 2017-08-30 00:50 | ED ---
Back Pain - HPI Summary HPI Summary: 87-year-old male presents with back pain today. He had an unwitnessed fall. He has been falling more recently. Daughter states he is at his baseline. Has a history of dementia. No head injury or loss consciousness. No vomiting. No chest pain or shortness breath. No abdominal pain. His only complaining about his back. Did have back pain prior to the fall. Has been taking Tylenol for the pain. No loss of bowel or bladder. No saddle anesthesia. Is moving both legs. Daughter states wants limited imaging done. - History of Current Complaint Chief Complaint: EDBackInjuryPain Stated Complaint: FALL Time Seen by Provider: 08/29/17 22:46 Pain Intensity: 0 - Allergies/Home Medications Allergies/Adverse Reactions: Allergies Allergy/AdvReac Type Severity Reaction Status Date / Time No Known Allergies Allergy Verified 08/13/17 18:00 PMH/Surg Hx/FS Hx/Imm Hx Endocrine/Hematology History: Reports: Hx Thyroid Disease Denies: Hx Anticoagulant Therapy, Hx Diabetes Cardiovascular History: Reports: Hx Angina, Hx Hypercholesterolemia, Hx Hypertension, Other Cardiovascular Problems/Disorders - ANGINA Denies: Hx Congestive Heart Failure, Hx Deep Vein Thrombosis, Hx Myocardial Infarction, Hx Pacemaker/ICD Respiratory History: Reports: Hx Chronic Obstructive Pulmonary Disease (COPD) Denies: Hx Asthma, Hx Lung Cancer, Hx Pneumonia, Hx Pulmonary Embolism GI History: Reports: Hx Gastroesophageal Reflux Disease - WELL CONTROLLED Denies: Hx Gall Bladder Disease, Hx Gastrointestinal Bleed, Hx Ulcer, Hx Urosepsis History: Reports: Hx Benign Prostatic Hyperplasia, Other Problems/ Disorders - indwelling piedra Denies: Hx Kidney Stones, Hx Renal Disease Sensory History: Reports: Hx Contacts or Glasses Opthamlomology History: Reports: Hx Contacts or Glasses Neurological History: Denies: Hx Dementia, Hx Migraine, Hx Seizures, Hx Transient Ischemic Attacks (TIA) Psychiatric History: Denies: Hx Anxiety, Hx Depression, Hx Schizophrenia, Hx Bipolar Disorder - Surgical History Surgery Procedure, Year, and Place: TURP 2014 Hx Anesthesia Reactions: No - Immunization History Date of Tetanus Vaccine: UTD Date of Influenza Vaccine: 11/2016 Immunizations Up to Date: Yes Infectious Disease History: No Infectious Disease History: Denies: Hx Clostridium Difficile, Hx Hepatitis, Hx Human Immunodeficiency Virus (HIV), Hx of Known/Suspected MRSA, Hx Shingles, Hx Tuberculosis, Hx Known/ Suspected VRE, Hx Known/Suspected VRSA, History Other Infectious Disease, Traveled Outside the [place] in Last 30 Days - Family History Known Family History: Positive: Cardiac Disease Family History: no fhx of malignant hyperthermia or anesthesia reaction - Social History Alcohol Use: Rare Hx Substance Use: No Substance Use Type: Reports: None Hx Tobacco Use: Yes Smoking Status (MU): Former Smoker Type: Cigarettes Length of Time of Smoking/Using Tobacco: 40 years Have You Smoked in the Last Year: No Review of Systems Negative: Fever Negative: Chest Pain Negative: Shortness Of Breath Positive: Myalgia - back pain All Other Systems Reviewed And Are Negative: Yes Physical Exam Triage Information Reviewed: Yes Vital Signs On Initial Exam: Initial Vitals Temp Pulse Resp BP Pulse Ox 100.1 F 71 16 153/89 94 08/29/17 22:36 08/29/17 22:36 08/29/17 22:36 08/29/17 22:36 08/29/17 22:36 Vital Signs Reviewed: Yes Appearance: Positive: Well-Appearing Skin: Positive: Warm, Dry Head/Face: Positive: Normal Head/Face Inspection Eyes: Positive: Normal, Conjunctiva Clear ENT: Positive: Pharynx normal Respiratory/Lung Sounds: Positive: Clear to Auscultation, Breath Sounds Present Cardiovascular: Positive: Normal, RRR Abdomen Description: Positive: Nontender, Soft Bowel Sounds: Positive: Present Musculoskeletal: Positive: Strength/ROM Intact - back, Other - tenderness lower back, nontender neck Neurological: Positive: Sensory/Motor Intact, CN Intact II-III. Negative: Alert , Oriented to Person Place, Time Psychiatric: Positive: Normal - [place] Coma Scale Best Eye Response: 4 - Spontaneous Best Motor Response: 6 - Obeys Commands Best Verbal Response: 5 - Oriented - baseline Coma Scale Total: 15 Diagnostics - Vital Signs Vital Signs Temp Pulse Resp BP Pulse Ox 08/29/17 22:36 100.1 F 71 16 153/89 94 - Laboratory Lab Statement: Any lab studies that have been ordered have been reviewed, and results considered in the medical decision making process. - Radiology lumbar Xray Interpretation: No Acute Changes - degenerative changes Radiology Interpretation Completed By: ED Physician thoracic Xray Interpretation: No Acute Changes Radiology Interpretation Completed By: ED Physician Back Pain Course/Dx - Course Course Of Treatment: 87-year-old male presents with back pain today. He had an unwitnessed fall. He has been falling more recently. Daughter states he is at his baseline. Has a history of dementia. No head injury or loss consciousness. No vomiting. No chest pain or shortness breath. No abdominal pain. His only complaining about his back. Did have back pain prior to the fall. Has been taking Tylenol for the pain. No loss of bowel or bladder. No saddle anesthesia. Is moving both legs. Daughter states wants limited imaging done. On exam has tenderness lower back. Patient is at baseline. Negative straight leg raise. Full room options of Lasix. Neurovascularly intact. X- ray read by Dr. Kennedy just degenerative changes. We'll try lidocaine patches for pain. Told to follow-up with primary about falls. Patient's daughter understands agrees with plan. - Diagnoses Differential Diagnosis/HQI/PQRI: Positive: Herniated Disc, Strain, Sprain Provider Diagnoses: Back pain Discharge - Sign-Out/Discharge Documenting (check all that apply): Patient Departure - Discharge Plan Condition: Good Disposition: HOME Prescriptions: Lidocaine PATCH 5%* [Lidoderm 5% Patch*] 1 patch TRANSDERM DAILY #7 patch Patient Education Materials: Back Pain (ED) Referrals: Nav eFng MD [Primary Care Provider] - Additional Instructions: Apply lidocaine patches to area for up to 12 hours in one 24 hour period Use Tylenol for pain every 6 hours ice/heat area, move as much as possible Follow up with primary within 5 days Return to ED if develop any new or worsening symptoms - Billing Disposition and Condition Condition: GOOD Disposition: Home
[2017-08-30] MEDS ORDERED: Lidocaine PATCH 5%* 1 PATCH TRANSDERM SCH ×2 (01:00)
[2017-08-30 02:22] VITALS: BP 151/44
--- NOTE | 2017-08-30 08:21 | RAD ---
INDICATION: Back pain. COMPARISON: None. TECHNIQUE: 3 views of the lumbar spine and 2 views of the thoracic spine were obtained. FINDINGS: There is nonspecific straightening of the normal lumbar lordosis. Otherwise the vertebra of the thoracic and lumbar spine are appropriately aligned. Degenerative changes include loss of intervertebral disc height at multiple levels and anterior bridging osteophyte formation at the mid-level and lower thoracic spine. Overall the visualized bones appear demineralized. IMPRESSION: Age-appropriate degenerative changes and appearance of diffuse demineralization without radiographically apparent acute fracture or dislocation involving the thoracic or lumbar spine. R0
[2017-08-30] MEDS ORDERED: Lidocaine Patch REMOVE* 1 NOTE MISC PATCH OFF ONE (13:00)
== END 2017-08-30 02:19 | disposition home or self-care (01) ==
LOC: ED 22:11
DX: M54.9 Dorsalgia, unspecified (principal); E07.9 Disorder of thyroid, unspecified; I20.9 Angina pectoris, unspecified; I10 Essential (primary) hypertension; E78.00 Pure hypercholesterolemia, unspecified; J44.9 Chronic obstructive pulmonary disease, unspecified; K21.9 Gastro-esophageal reflux disease without esophagitis; N40.0 Benign prostatic hyperplasia without lower urinary tract symptoms; Z90.79 Acquired absence of other genital organ(s); Z82.49 Family history of ischemic heart disease and other diseases of the circulatory system; Z87.891 Personal history of nicotine dependence
CPT/HCPCS: 72070; 72100; 99282; A9270-GY

== ENCOUNTER 2017-09-17 12:00 | Emergency (ER) | payer MEDICARE ==
--- NOTE | 2017-09-17 12:33 | ED ---
Lower Extremity - HPI Summary HPI Summary: This is kristin Avila documenting for attending Stan Bennett MD. This patient is a 87 year old M presenting to [facility] with a chief complaint of right calf swelling that was noticed by the staff at [facility] where he lives. They noticed the swelling this morning and it was reduced with elevation. The patient rates the pain 0/10 in severity. Patient denies pain, SOB increased from baseline, CP, and fever. Pt reports that he feels fine and is hard of hearing. Hx smoking and COPD. - History of Current Complaint Chief Complaint: EDExtremityLower Stated Complaint: LEG SWELLING Hx Obtained From: Patient, Family/Recreation Facility Manager Mechanism Of Injury: Other - none Onset/Duration: Still Present Severity Initially: Moderate Severity Currently: Mild Pain Intensity: 0 Pain Scale Used: 0-10 Numeric Timing: Constant Associated Signs And Symptoms: Positive: Negative - CP SOB, Swelling - Allergies/Home Medications Allergies/Adverse Reactions: Allergies Allergy/AdvReac Type Severity Reaction Status Date / Time No Known Allergies Allergy Verified 08/13/17 18:00 PMH/Surg Hx/FS Hx/Imm Hx Endocrine/Hematology History: Reports: Hx Thyroid Disease Denies: Hx Anticoagulant Therapy, Hx Diabetes Cardiovascular History: Reports: Hx Angina, Hx Hypercholesterolemia, Hx Hypertension, Other Cardiovascular Problems/Disorders - ANGINA Denies: Hx Congestive Heart Failure, Hx Deep Vein Thrombosis, Hx Myocardial Infarction, Hx Pacemaker/ICD Respiratory History: Reports: Hx Chronic Obstructive Pulmonary Disease (COPD) Denies: Hx Asthma, Hx Lung Cancer, Hx Pneumonia, Hx Pulmonary Embolism GI History: Reports: Hx Gastroesophageal Reflux Disease - WELL CONTROLLED Denies: Hx Gall Bladder Disease, Hx Gastrointestinal Bleed, Hx Ulcer, Hx Urosepsis History: Reports: Hx Benign Prostatic Hyperplasia, Other Problems/ Disorders - indwelling piedra Denies: Hx Kidney Stones, Hx Renal Disease Sensory History: Reports: Hx Contacts or Glasses Opthamlomology History: Reports: Hx Contacts or Glasses Neurological History: Denies: Hx Dementia, Hx Migraine, Hx Seizures, Hx Transient Ischemic Attacks (TIA) Psychiatric History: Denies: Hx Anxiety, Hx Depression, Hx Schizophrenia, Hx Bipolar Disorder - Surgical History Surgery Procedure, Year, and Place: TURP 2014 Hx Anesthesia Reactions: No - Immunization History Date of Tetanus Vaccine: UTD Date of Influenza Vaccine: 11/2016 Infectious Disease History: No Infectious Disease History: Denies: Hx Clostridium Difficile, Hx Hepatitis, Hx Human Immunodeficiency Virus (HIV), Hx of Known/Suspected MRSA, Hx Shingles, Hx Tuberculosis, Hx Known/ Suspected VRE, Hx Known/Suspected VRSA, History Other Infectious Disease, Traveled Outside the [place] in Last 30 Days - Family History Known Family History: Positive: Cardiac Disease Family History: no fhx of malignant hyperthermia or anesthesia reaction - Social History Lives: [facility] Alcohol Use: None Hx Substance Use: No Substance Use Type: Reports: None Hx Tobacco Use: Yes Smoking Status (MU): Former Smoker Type: Cigarettes Length of Time of Smoking/Using Tobacco: 40 years Have You Smoked in the Last Year: No Review of Systems Negative: Fever Negative: Chest Pain Negative: Shortness Of Breath Musculoskeletal: Negative - pain Positive: Edema All Other Systems Reviewed And Are Negative: Yes Physical Exam - Summary Physical Exam Summary: Appearance: Well appearing, no pain distress Skin: warm, dry, reflects adequate perfusion Head/face: normal Eyes: EOMI, JANINE ENT: normal Neck: supple, non-tender Respiratory: diminished breath sounds Cardiovascular: RRR, pulses symmetrical Abdomen: non-tender, soft Bowel Sounds: present Musculoskeletal: increased calf diameter of the right vs left. There is trace edema in bilateral LE. strength/ROM intact Neuro: normal, sensory motor intact, A&Ox3 Triage Information Reviewed: Yes Vital Signs On Initial Exam: Initial Vitals Temp Pulse Resp BP Pulse Ox 98.1 F 60 15 152/76 96 09/17/17 12:17 09/17/17 12:17 09/17/17 12:17 09/17/17 12:17 09/17/17 12:17 Vital Signs Reviewed: Yes Diagnostics - Vital Signs Vital Signs Temp Pulse Resp BP Pulse Ox 09/17/17 12:28 57 154/59 95 09/17/17 12:17 98.1 F 60 15 152/76 96 - Laboratory Lab Statement: Any lab studies that have been ordered have been reviewed, and results considered in the medical decision making process. - Ultrasound No standard instances Ultrasound Interpretation Completed By: Radiologist - US Doppler- Right femoral vein and common femoral veins appear patent. The study is limited as the patient refused further study. ED physician has reviewed this radiology report. Lower Extremity Course/Dx - Course Course Of Treatment: Patient with increased right calf girth compared to left. No significant edema today. No tenderness or redness. His DVT ultrasound was limited as the patient wanted to discontinue. He is no distress [facility] - Diagnoses Provider Diagnoses: Peripheral edema Discharge - Sign-Out/Discharge Documenting (check all that apply): Patient Departure - Discharge Plan Condition: Improved Disposition: ALF FACILITY Patient Education Materials: Leg Edema (ED) Referrals: Nav Feng MD [Primary Care Provider] - Additional Instructions: Low-salt diet. Compression hose may help. Return if worse, new symptoms or other concerns. - Billing Disposition and Condition Condition: IMPROVED Disposition: Senior Living Facility
--- NOTE | 2017-09-17 13:08 | RAD ---
Indication: Right leg edema. Duplex Doppler sonography of the right lower extremity was performed. The right common femoral vein, proximal deep femoral vein and femoral vein appear patent and compressible. Patient refused further examination. IMPRESSION: Right femoral vein and common femoral veins appear patent. The study is limited as the patient refused further study.
[2017-09-17 13:31] VITALS: BP 142/71
== END 2017-09-17 13:30 ==
LOC: ED 12:00
DX: R60.9 Edema, unspecified (principal); J44.9 Chronic obstructive pulmonary disease, unspecified; Z87.891 Personal history of nicotine dependence
CPT/HCPCS: 99281

== ENCOUNTER → 2017-10-06 15:52 | Emergency (ER) | payer MEDICARE ==
[~2017-10-06 15:52] MED LIST: cefTRIAXone(*) 1 GM in NS 0.9% 50 ML* 50 ML IVPB ONE
--- NOTE | 2017-10-06 16:13 | ED ---
Syncope/Near Syncope - HPI Summary HPI Summary: LEVEL 5 CAVEAT:Unable to obtain complete HPI due to dementia The pt is an 87 y/o male accompanied by his son and is BIBA to [facility] s/p a syncope episode at 15:00 today while at [facility]. The pt had an unwitnessed fall and hit his head (temporal side) on the dining table. The family reports a hx of frequent falls and dizziness when the pt is not using his walker. They also note a parietal hematoma and disorientation compared to baseline but deny any pain complaints. Per medication records the pt is not on any blood thinners. - History Of Current Complaint Hx Obtained From: Patient, Family/[employer] - and son Hx From Patient Unobtainable Due To: Dementia Onset/Duration: Sudden Onset Activity At Onset: Other - Ambulating without his walker Associated Head Trauma: Yes Aggravating Factor(s): Other - Ambulating without his walker Associated Signs And Symptoms: Negative - Pain complaints, Head Trauma (Recent) - today, Other - Positive: dizziness, LOC, frequent falls, disorientation - Allergies/Home Medications Allergies/Adverse Reactions: Allergies Allergy/AdvReac Type Severity Reaction Status Date / Time No Known Allergies Allergy Verified 10/06/17 16:21 PMH/Surg Hx/FS Hx/Imm Hx Previously Healthy: No Endocrine/Hematology History: Reports: Hx Thyroid Disease Denies: Hx Anticoagulant Therapy, Hx Diabetes Cardiovascular History: Reports: Hx Angina, Hx Deep Vein Thrombosis, Hx Hypercholesterolemia, Hx Hypertension, Other Cardiovascular Problems/Disorders - ANGINA Denies: Hx Congestive Heart Failure, Hx Myocardial Infarction, Hx Pacemaker/ ICD Respiratory History: Reports: Hx Chronic Obstructive Pulmonary Disease (COPD) Denies: Hx Asthma, Hx Lung Cancer, Hx Pneumonia, Hx Pulmonary Embolism GI History: Reports: Hx Gastroesophageal Reflux Disease - WELL CONTROLLED Denies: Hx Gall Bladder Disease, Hx Gastrointestinal Bleed, Hx Ulcer, Hx Urosepsis History: Reports: Hx Benign Prostatic Hyperplasia, Other Problems/ Disorders - indwelling piedra Denies: Hx Kidney Stones, Hx Renal Disease Sensory History: Reports: Hx Contacts or Glasses Opthamlomology History: Reports: Hx Contacts or Glasses Neurological History: Reports: Hx Dementia Denies: Hx Migraine, Hx Seizures, Hx Transient Ischemic Attacks (TIA) Psychiatric History: Denies: Hx Anxiety, Hx Depression, Hx Schizophrenia, Hx Bipolar Disorder - Surgical History Surgery Procedure, Year, and Place: TUR 2014 Hx Anesthesia Reactions: No - Immunization History Date of Tetanus Vaccine: UTD Date of Influenza Vaccine: 11/2016 Infectious Disease History: Denies: Hx Clostridium Difficile, Hx Hepatitis, Hx Human Immunodeficiency Virus (HIV), Hx of Known/Suspected MRSA, Hx Shingles, Hx Tuberculosis, Hx Known/ Suspected VRE, Hx Known/Suspected VRSA, History Other Infectious Disease - Family History Known Family History: Positive: Cardiac Disease Family History: no fhx of malignant hyperthermia or anesthesia reaction - Social History Occupation: Retired Lives: At [facility] Alcohol Use: None Hx Substance Use: No Substance Use Type: Reports: None Hx Tobacco Use: Yes Smoking Status (MU): Former Smoker Type: Cigarettes Length of Time of Smoking/Using Tobacco: 40 years Have You Smoked in the Last Year: No Review of Systems - ROS Summary Review of Systems Summary: LEVEL 5 CAVEAT: Unable to obtain a complete ROS due to dementia Constitutional: Negative - Pain complaints Positive: Other - Positive: Disorientation Positive: Other - Positive: frequent falls Skin: Other - Positve: parietal hematoma Positive: Syncope - Unwitnessed All Other Systems Reviewed And Are Negative: No Physical Exam - Summary Physical Exam Summary: LEVEL 5 CAVEAT: Unable to obtain complete PE due to dementia Appearance: Demented, nontoxic appearing Skin: Warm, dry, no mottling, no rashes, no contusions HEENT: EOMI, PERRL, moist mucous membrane; hematoma on the R posterior parietal side of the head Neck: No masses on the neck, supple Respiratory: Clear to auscultation, breath sounds present, no rales, no rhonchi , no wheezes Cardiovascular: RRR, pulses are symmetrical in both lower and upper extremities ; mild pedal edema, bilateral compression socks Abdomen: Soft, non-tender Bowel Sounds: Present Musculoskeletal: No CVA tenderness, no obvious deformity, moving all extremities in a grossly normal manner; back non-tender Neurological: CN II-XII Intact, moving all extremities symmetrically GCS: 15 (at bedside) Psychiatric: Normal affect and mood Triage Information Reviewed: Yes Vital Signs On Initial Exam: Initial Vital Signs Temp 98.4 F 10/06/17 16:21 Pulse 55 10/06/17 16:21 Resp 18 10/06/17 16:21 BP 153/61 10/06/17 16:21 Pulse Ox 97 10/06/17 16:21 Vital Signs Reviewed: Yes Diagnostics - Laboratory Result Diagrams: 10/06/17 16:53 10/06/17 16:53 Lab Statement: Any lab studies that have been ordered have been reviewed, and results considered in the medical decision making process. - Radiology CXR Radiology Interpretation Completed By: Radiologist - IMPRESSION: No active cardiopulmonary disease is noted. The ED physician has reviewed this radiology report and agrees with it. - CT Cervical Spine CT CT Interpretation Completed By: Radiologist - IMPRESSION: No fracture is identified. Multilevel degenerative disc disease is noted with grade 1 spondylolisthesis of C3 on 4 likely due to facet arthropathy. No fracture is identified. The ED physician has reviewed this radiology report and agrees with it. Brain CT CT Interpretation Completed By: Radiologist - IMPRESSION: Age-appropriate atrophy without evidence of intracranial mass or hemorrhage. The ED physician has reviewed this radiology report and agrees with it. - EKG 16:50 Cardiac Rate: Bradycardia - 55 EKG Rhythm: Sinus Bradycardia EKG Interpretation: Nonspecific ST waves in lead III and AVF , RBBB, Prolonged QRS Course/Dx Course Of Treatment: An 87 year-old demented male accompanied by his son and is BIBA to [facility] s/p a syncope episode at 15:00 today while at [facility]. The pt had an unwitnessed fall and hit his head (temporal side) on the dining table. The family reports a hx of frequent falls and dizziness when the pt is not using his walker. They also note a parietal hematoma and disorientation compared to baseline but deny any pain complaints. Per medication records the pt is not on any blood thinners. CT of the cervical spine , CXR and CT head are all negative. An EKG reveals bradycardia, RBBB, nonspecific ST waves in lead III and AV, and prolonged QRS. In the ED course, pt was given Ceftriaxone and Ns 0.9% which improved the symptoms. A physical exam revealed a hematoma on the R posterior parietal side of the head, mild pedal edema, and bilateral compression socks. The patient will be discharged with a final Dx of UTI and frequent falls. The pt's family is agreeable with this plan. Allergies noted. - Diagnoses Provider Diagnoses: UTI (urinary tract infection), Frequent falls Discharge - Sign-Out/Discharge Documenting (check all that apply): Patient Departure - DC - Discharge Plan Condition: Stable Disposition: HOME Prescriptions: Cephalexin CAP* [Keflex CAP*] 500 mg PO TID #21 cap Patient Education Materials: Urinary Tract Infection in Men (ED), Fall Prevention (ED) Referrals: Nav Feng MD [Primary Care Provider] - 3 Days Additional Instructions: Take Keflex 500mg three times a day for 7 days. return if worse or any new symptoms. Please follow up with your doctor on Monday. take all other medications as previously instructed. - Billing Disposition and Condition Condition: STABLE Disposition: Home - Attestation Statements Document Initiated by Kareem: Yes Documenting Scribe: Nora Marks Provider For Whom Kareem is Documenting (Include Credential): Dr. Clare Fermin MD Scribe Attestation: Nora Ram , scribed for Dr. Clare Fermin MD on 10/11/17 at 1133. Scribe Documentation Reviewed: Yes Provider Attestation: The documentation as recorded by the Nora foster accurately reflects the service I personally performed and the decisions made by me, Dr. Clare Fermin MD
[2017-10-06 17:11] LABS: ABS Basophils 0.1 10^3/ul (0-0.2); ABS Eosinophils 0.1 10^3/ul (0-0.6); ABS Lymphocytes 1.2 10^3/ul (1.0-4.8); ABS Monocytes 0.4 10^3/ul (0-0.8); ABS Neutrophils 4.2 10^3/ul (1.5-7.7); ABS Nucleated RBC 0 10^3/ul; Eosinophil % 2.4 % (0-6); Hematocrit 40 % (42-52); Hemoglobin 13.4 g/dl (14.0-18.0); Lymphocyte % 19.8 % (25-47); Mean Corpuscular HGB Conc 34 g/dl (31-36); Mean Corpuscular Hemoglobin 32 pg (27-31); Mean Corpuscular Volume 95 fL (80-94); Mean Platelet Volume 8.1 um3 (7.4-10.4); Nucleated Red Blood Cells % 0; Platelet Count 261 10^3/ul (150-450); Red Blood Count 4.18 10^6/ul (4.00-5.40); Red Cell Distribution Width 14 % (10.5-15)
--- NOTE | 2017-10-06 17:15 | RAD ---
Indication: Syncope, head injury. CT of the brain performed without IV contrast. Ventricular structures are midline. No midline shift is noted. Central and cortical atrophy is noted. There is no evidence of intracranial mass or hemorrhage. There is periventricular lucency consistent with chronic ischemic White matter change similar in distribution to that seen on August 13, 2017. Mastoid air cells and paranasal sinuses are otherwise unremarkable. IMPRESSION: Age-appropriate atrophy without evidence of intracranial mass or hemorrhage.
[2017-10-06 17:30] LABS: EGFR Non-African American 77.6 (>60)
--- NOTE | 2017-10-06 17:34 | RAD ---
Indication: Syncope. Single frontal view of the chest performed at 1715 hours demonstrates no mediastinal shift. Heart is of normal size and configuration. Lung pendleton are clear. No changes noted since previous exam of August 13, 2017. IMPRESSION: No active cardiopulmonary disease is noted.
--- NOTE | 2017-10-06 17:34 | RAD ---
Indication: Syncope, head trauma. CT of the cervical spine was obtained in the axial plane. Sagittal and coronal reconstructed images were obtained. The skull base demonstrates no evidence of basilar skull fracture. The C1 ring is intact. There is calcification of the transverse ligament. At C2-C3 there is no disc protrusion. Spondylitic ridge flattens the thecal sac. No foraminal stenosis is noted. At C3-C4 there is grade 1 spondylolisthesis noted. This is likely due to facet arthropathy no evidence of fracture is noted. At C4-C5 spondylitic ridge flattens the thecal sac. Facet arthropathy is noted. No central or foraminal stenosis is noted. At C5-C6, C6-C7 there is spondylitic ridge flattening the thecal sac. Grade 1 spondylolisthesis of C7 on T1 is noted. IMPRESSION: No fracture is identified. Multilevel degenerative disc disease is noted with grade 1 spondylolisthesis of C3 on 4 likely due to facet arthropathy. No fracture is identified.
[2017-10-06 18:03] LABS: Urine Appearance Clear; Urine Blood 1+ (Negative); Urine Color Yellow; Urine Ketones Negative (Negative); Urine Protein Negative (Negative); Urine Red Blood Cell 1+(3-5/hpf) (Absent); Urine Specific Gravity 1.016 (1.010-1.030); Urine Urobilinogen Negative (Negative); Urine White Blood Cell 2+(11-20/hpf) (Absent)
[2017-10-06 19:25] VITALS: BP 154/74
== END | disposition home or self-care (01) ==
LOC: ED 15:52
DX: N39.0 Urinary tract infection, site not specified (principal); Z91.81 History of falling; R55 Syncope and collapse; Z87.891 Personal history of nicotine dependence
CPT/HCPCS: 36415; 70450; 71045; 72125; 80053; 81003; 81015; 83690; 83735; 84443; 84484; 85025; 87086; 93005; 96365; 99283; J0696

== ENCOUNTER → 2017-10-23 16:37 | Emergency (ER) | payer MEDICARE ==
--- NOTE | 2017-10-23 17:15 | ED ---
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 Pt fell several weeks ago. Pt also c/o low back ache, back of neck pain for several days. Fall unwitnessed. Pt had no pants on when found, per pt daughter. Pt lives in [facility]. Pt uses a walker normally but was not using it today. PMHx of dementia, COPD and HTN. - History Of Current Complaint Chief Complaint: EDHeadInjury Stated Complaint: FALL Time Seen by Provider: 10/23/17 16:46 Hx Obtained From: Patient Mechanism Of Injury: Fall From A Standing Position Pain Intensity: 0 Character: Aching - low back Associated Signs And Symptoms: Other: - abrasion - Allergies/Home Medications Allergies/Adverse Reactions: Allergies Allergy/AdvReac Type Severity Reaction Status Date / Time No Known Allergies Allergy Verified 10/23/17 17:00 Home Medications: Home Medications Albuterol inh POWDER (NF) [Proair Respiclick] 2 puff INH DAILY 10/23/17 [ History Confirmed 10/23/17] Citalopram TAB* [CeleXA TAB*] 20 mg PO DAILY 10/23/17 [History Confirmed ] Doxazosin TAB* [Cardura TAB*] 4 mg PO BEDTIME 10/23/17 [History Confirmed ] Furosemide TAB* [Lasix TAB*] 40 mg PO DAILY 10/23/17 [History Confirmed 10/23/17 ] Levothyroxine TAB* [Synthroid TAB*] 150 mcg PO DAILY 10/23/17 [History Confirmed 10/23/17] Lidocaine PATCH 5%* [Lidoderm 5% Patch*] 1 patch TOPICAL DAILY 10/23/17 [ History Confirmed 10/23/17] Methenamine Hippurate TAB* [Hiprex TAB*] 1 gm PO DAILY 10/23/17 [History Confirmed 10/23/17] Polyethylene Glycol 3350* [Miralax*] 17 gm PO EVERY OTHER DAY 10/23/17 [History Confirmed 10/23/17] Tiotropium CAP.INH* [Spiriva CAP.INH*] 1 cap INH DAILY 10/23/17 [History Confirmed 10/23/17] PMH/Surg Hx/FS Hx/Imm Hx Previously Healthy: No Endocrine/Hematology History: Reports: Hx Thyroid Disease Denies: Hx Anticoagulant Therapy, Hx Diabetes Cardiovascular History: Reports: Hx Angina, Hx Deep Vein Thrombosis, Hx Hypercholesterolemia, Hx Hypertension, Other Cardiovascular Problems/Disorders - ANGINA Denies: Hx Congestive Heart Failure, Hx Myocardial Infarction, Hx Pacemaker/ ICD Respiratory History: Reports: Hx Chronic Obstructive Pulmonary Disease (COPD) Denies: Hx Asthma, Hx Lung Cancer, Hx Pneumonia, Hx Pulmonary Embolism GI History: Reports: Hx Gastroesophageal Reflux Disease - WELL CONTROLLED Denies: Hx Gall Bladder Disease, Hx Gastrointestinal Bleed, Hx Ulcer, Hx Urosepsis History: Reports: Hx Benign Prostatic Hyperplasia, Other Problems/ Disorders - indwelling piedra Denies: Hx Kidney Stones, Hx Renal Disease Sensory History: Reports: Hx Contacts or Glasses Opthamlomology History: Reports: Hx Contacts or Glasses Neurological History: Reports: Hx Dementia Denies: Hx Migraine, Hx Seizures, Hx Transient Ischemic Attacks (TIA) Psychiatric History: Denies: Hx Anxiety, Hx Depression, Hx Schizophrenia, Hx Bipolar Disorder - Surgical History Surgery Procedure, Year, and Place: TURP 2014 Hx Anesthesia Reactions: No - Immunization History Date of Tetanus Vaccine: UTD Date of Influenza Vaccine: 11/2016 Immunizations Up to Date: Yes Infectious Disease History: No Infectious Disease History: Denies: Hx Clostridium Difficile, Hx Hepatitis, Hx Human Immunodeficiency Virus (HIV), Hx of Known/Suspected MRSA, Hx Shingles, Hx Tuberculosis, Hx Known/ Suspected VRE, Hx Known/Suspected VRSA, History Other Infectious Disease, Traveled Outside the [place] in Last 30 Days - Family History Known Family History: Positive: Cardiac Disease Family History: no fhx of malignant hyperthermia or anesthesia reaction - Social History Alcohol Use: None Hx Substance Use: No Substance Use Type: Reports: None Hx Tobacco Use: Yes Smoking Status (MU): Former Smoker Type: Cigarettes Length of Time of Smoking/Using Tobacco: 40 years Have You Smoked in the Last Year: No Review of Systems Negative: Fever, Chills Negative: Drainage Negative: Sore Throat Negative: Chest Pain Negative: Shortness Of Breath, Cough Negative: Abdominal Pain, Vomiting, Nausea Negative: dysuria, hematuria Positive: Other - Back of neck, low back pain. Negative: Edema Positive: Other - abrasion @ top of head, L knee. Negative: Rash Neurological: Other - no dizziness All Other Systems Reviewed And Are Negative: Yes Physical Exam - Summary Physical Exam Summary: Constitutional: Well-developed, Well-nourished, Alert. (-) Distressed Skin: Warm, Dry HENT: Normocephalic; Atraumatic Eyes: Conjunctiva normal Neck: Musculoskeletal ROM normal neck. (-) JVD, (-) Stridor, (-) Tracheal deviation Cardio: Rhythm regular, rate normal, Heart sounds normal; Intact distal pulses; The pedal pulses are 2+ and symmetric. Radial pulses are 2+ and symmetric. (-) Murmur Pulmonary/Chest wall: Effort normal. (-) Respiratory distress, (-) Wheezes, (-) Rales Abd: Soft, (-) epigastric tenderness, (-) Distension, (-) Guarding, (-) Rebound Musculoskeletal: (-) Edema Lymph: (-) Cervical adenopathy Neuro: Alert, Oriented x3 Psych: Mood and affect Normal GCS: 15. Trauma exam: Abrasion at the vertex of his skull. Otherwise normal. Triage Information Reviewed: Yes Vital Signs On Initial Exam: Initial Vitals Temp Pulse Resp BP Pulse Ox 98.3 F 62 18 167/66 95 10/23/17 16:46 10/23/17 16:46 10/23/17 16:46 10/23/17 16:46 10/23/17 16:46 Vital Signs Reviewed: Yes Diagnostics - Vital Signs Vital Signs Temp Pulse Resp BP Pulse Ox 10/23/17 16:46 98.3 F 62 18 167/66 95 - Laboratory Lab Statement: Any lab studies that have been ordered have been reviewed, and results considered in the medical decision making process. - Radiology LUMBAR SPINE XR Xray Interpretation: No Acute Changes Radiology Interpretation Completed By: ED Physician - CT BRAIN CT CT Interpretation Completed By: Radiologist - Age-appropriate atrophy. Mucosal thickening of the right ethmoid air cells. No intracranial mass or hemorrhage is noted. ED PHYSICIAN REVIEWS AND AGREES. CSPINE CT CT Interpretation Completed By: Radiologist - 1. No cervical spine traumatic abnormalities. 2. Moderate multilevel cervical spondylopathy causing C3-C4 canal stenosis and compression of the bilateral C4 nerve roots. ED PHYSICIAN REVIEWS AND AGREES Re-Evaluation - Re-Evaluation 1 Re-Evaluation Time: 19:45 Comment: Discuss test results, imaging results, plan of care. Pt agrees with plan Head Injury Course/Dx Assessment/Plan: XRs negative. Pt will be d/c home. Mechanical fall. Pt wasn't using walker, no significant injuries. - Diagnoses Provider Diagnoses: Scalp abrasion Discharge - Sign-Out/Discharge Documenting (check all that apply): Patient Departure - Discharge Plan Condition: Stable Disposition: HOME Patient Education Materials: Fall Prevention for Older Adults (ED), Abrasion ( ED) Referrals: Nav Feng MD [Primary Care Provider] - 3 Days (PLEASE F/U IN 2-3 DAYS) Additional Instructions: PLEASE USE YOUR WALKER AT ALL TIMES - Attestation Statements Document Initiated by Scribe: Yes Documenting Scribe: Mark Abreu Provider For Whom Scribe is Documenting (Include Credential): Isaiah Cobb MD Scribe Attestation: Mark Ram, scribed for Isaiah Cobb MD on 10/23/17 at 1952.
--- NOTE | 2017-10-23 17:38 | RAD ---
Indication: Fall, head injury. CT of the brain performed without IV contrast. Ventricular structures are midline. No midline shift is noted. There is central and cortical atrophy noted. There is no evidence of intracranial mass or hemorrhage. There is no evidence of other high or low density lesions. Mastoid air cells are well aerated. There may be some minimal fluid in the right ethmoid air cells. This is unchanged from previous exam. IMPRESSION: Age-appropriate atrophy. Mucosal thickening of the right ethmoid air cells. No intracranial mass or hemorrhage is noted.
--- NOTE | 2017-10-23 19:37 | RAD ---
EXAM: CT Cervical Spine Without Intravenous Contrast CLINICAL HISTORY: 87 years old, male; Pain; Neck pain; Additional info: Fall pain TECHNIQUE: Axial computed tomography images of the cervical spine without intravenous contrast. All CT scans at this facility use at least one of these dose optimization techniques: automated exposure control; mA and/or kV adjustment per patient size (includes targeted exams where dose is matched to clinical indication); or iterative reconstruction. Coronal and sagittal reformatted images were created and reviewed. COMPARISON: SP C WO CT SPINE CERVICAL W/O 10/06/2017 5:00 PM FINDINGS: Vertebrae: Straightened cervical lordosis with degenerative grade 1 anterolisthesis of C3 on C4 and retrolisthesis of C4 on C5.The craniocervical junction and atlantoaxial articulation are symmetric and normal. No fractures. Vertebral body heights are maintained. Discs/spinal canal/neural foramina: C2-C3: Mild disc height loss and endplate osteophyte disc bulge complex causing no canal stenosis. Left uncovertebral and facet hypertrophy causing mild left neural foraminal narrowing. Normal right facet and neural foramen. C3-C4: Disc height loss and endplate osteophyte disc bulge complex causing mild canal stenosis. Uncovertebral and facet hypertrophy causing severe bilateral neural foraminal narrowing. C4-C5: Complete disc height loss with endplate osteophyte disc bulge complex causing no canal stenosis. Uncovertebral and facet hypertrophy causing moderate bilateral neural foraminal narrowing. C5-C6: Complete disc height loss with endplate osteophyte disc bulge complex causing no canal stenosis. Uncovertebral and facet hypertrophy causing moderate bilateral neural foraminal narrowing. C6-C7: Complete disc height loss with endplate osteophyte disc bulge complex causing no canal stenosis. Uncovertebral and facet hypertrophy causing mild bilateral neural foraminal narrowing. C7-T1:There is no disc space narrowing. No canal stenosis or foraminal narrowing. The facet joints are normal. Soft tissues: Normal. Lung apices: Normal as visualized. IMPRESSION: 1. No cervical spine traumatic abnormalities. 2. Moderate multilevel cervical spondylopathy causing C3-C4 canal stenosis and compression of the bilateral C4 nerve roots.
[2017-10-23 19:56] VITALS: BP 160/65
--- NOTE | 2017-10-24 07:36 | RAD ---
HISTORY: FALL PAIN COMPARISONS: August 29, 2017 VIEWS: 5 , Frontal, lateral, coned-down lateral sacral, and bilateral oblique views of the lumbar spine. FINDINGS: ALIGNMENT: There is straightening of the normal lumbar lordosis. VERTEBRAL BODIES: There is diffuse osteopenia. Is multilevel anterolateral marginal osteophyte formation. The vertebral bodies are preserved in height. JOINTS: There is diffuse facet osteoarthritis most pronounced at L5-S1. INTERVERTEBRAL DISCS: There is diffuse loss of intervertebral disc height. SOFT TISSUE: There is calcification of the aorta and its branches. OTHER: There is osteoarthritis of the hips and SI joints. There is a large amount of stool throughout the colon. IMPRESSION: 1. OSTEOPENIA. 2. DEGENERATIVE DISC DISEASE AND OSTEOARTHRITIS. 3. ATHEROSCLEROSIS R0
== END | disposition home or self-care (01) ==
LOC: ED 16:37
DX: S80.212A Abrasion, left knee, initial encounter (principal); S00.01XA Abrasion of scalp, initial encounter; M54.5 Low back pain; Z87.891 Personal history of nicotine dependence; W19.XXXA Unspecified fall, initial encounter; Z91.81 History of falling; Y92.9 Unspecified place or not applicable
CPT/HCPCS: 70450; 72110; 72125; 99283

== ENCOUNTER 2017-10-28 08:09 | Emergency (ER) | payer MEDICARE ==
--- NOTE | 2017-10-28 08:29 | ED ---
Complex/Multi-Sys Presentation - HPI Summary HPI Summary: 87 year old M BIB EMS to [facility] from [facility] accompanied by daughter complains of unwitnessed fall to floor one hour ago. Symptoms aggravated by nothing. Symptoms alleviated by nothing. Patient denies headache. [facility] staff reports that patient hit his right eye. Patient is not taking blood thinners. - History Of Current Complaint Chief Complaint: EDGeneral Time Seen by Provider: 10/28/17 08:22 Hx Obtained From: Patient, Other: - [facility] staff Onset/Duration: Sudden Onset, Lasting Hours - 1, Still Present Timing: Constant Aggravating Factor(s): Nothing Alleviating Factor(s): Nothing Associated Signs And Symptoms: Negative: Headache - Allergies/Home Medications Allergies/Adverse Reactions: Allergies Allergy/AdvReac Type Severity Reaction Status Date / Time No Known Allergies Allergy Verified 10/28/17 08:29 Home Medications: Home Medications Budesonide/Formote 160/4.5(NF) [Symbicort 160/4.5 (NF)] 1 puff INH DAILY [History Confirmed 10/28/17] PMH/Surg Hx/FS Hx/Imm Hx Previously Healthy: No Endocrine/Hematology History: Reports: Hx Thyroid Disease Denies: Hx Anticoagulant Therapy, Hx Diabetes Cardiovascular History: Reports: Hx Angina, Hx Deep Vein Thrombosis, Hx Hypercholesterolemia, Hx Hypertension, Other Cardiovascular Problems/Disorders - ANGINA Denies: Hx Congestive Heart Failure, Hx Myocardial Infarction, Hx Pacemaker/ ICD Respiratory History: Reports: Hx Chronic Obstructive Pulmonary Disease (COPD) Denies: Hx Asthma, Hx Lung Cancer, Hx Pneumonia, Hx Pulmonary Embolism GI History: Reports: Hx Gastroesophageal Reflux Disease - WELL CONTROLLED Denies: Hx Gall Bladder Disease, Hx Gastrointestinal Bleed, Hx Ulcer, Hx Urosepsis History: Reports: Hx Benign Prostatic Hyperplasia, Other Problems/ Disorders - indwelling piedra Denies: Hx Kidney Stones, Hx Renal Disease Sensory History: Reports: Hx Contacts or Glasses, Hx Hearing Aid Opthamlomology History: Reports: Hx Contacts or Glasses Neurological History: Reports: Hx Dementia Denies: Hx Migraine, Hx Seizures, Hx Transient Ischemic Attacks (TIA) Psychiatric History: Denies: Hx Anxiety, Hx Depression, Hx Schizophrenia, Hx Bipolar Disorder - Surgical History Surgery Procedure, Year, and Place: TURP 2014 Hx Anesthesia Reactions: No - Immunization History Date of Tetanus Vaccine: UTD Date of Influenza Vaccine: 11/2016 Infectious Disease History: No Infectious Disease History: Denies: Hx Clostridium Difficile, Hx Hepatitis, Hx Human Immunodeficiency Virus (HIV), Hx of Known/Suspected MRSA, Hx Shingles, Hx Tuberculosis, Hx Known/ Suspected VRE, Hx Known/Suspected VRSA, History Other Infectious Disease, Traveled Outside the [place] in Last 30 Days - Family History Known Family History: Positive: Cardiac Disease Family History: no fhx of malignant hyperthermia or anesthesia reaction - Social History Alcohol Use: None Hx Substance Use: No Substance Use Type: Reports: None Hx Tobacco Use: Yes Smoking Status (MU): Former Smoker Type: Cigarettes Length of Time of Smoking/Using Tobacco: 40 years Have You Smoked in the Last Year: No Review of Systems Positive: Other - unwitnessed fall to floor Negative: Headache All Other Systems Reviewed And Are Negative: Yes Physical Exam - Summary Physical Exam Summary: Appearance: The patient is well-nourished in no acute distress and in no acute pain. Skin: he has some healing ecchymosis on the top of his head and on his right forearm that are not new. HEENT: The head is normocephalic and atraumatic. The pupils are equal and reactive. The conjunctivae are clear and without drainage. Nares are patent and without drainage. Mouth reveals moist mucous membranes and the throat is without erythema and exudate. The external ears are intact. The ear canals are patent and without drainage. The tympanic membranes are intact. Neck: The neck is supple with full range of motion and non-tender. There are no carotid bruits. There is no neck vein distension. Respiratory: Chest is non-tender. Lungs are clear to auscultation and breath sounds are symmetrical and equal. Cardiovascular: Heart is regular rate and rhythm. There is no murmur or rub auscultated. There is no peripheral edema and pulses are symmetrical and equal. Abdomen: The abdomen is soft and non-tender. There are normal bowel sounds heard in all four quadrants and there is no organomegaly palpated. Musculoskeletal: There is no back tenderness noted. Extremities are non-tender with full range of motion. There is good capillary refill. There is no peripheral edema or calf tenderness elicited. Neurological: Patient is alert and oriented to person, place and time. The patient has symmetrical motor strength in all four extremities. Cranial nerves are grossly intact. Deep tendon reflexes are symmetrical and equal in all four extremities. Psychiatric: The patient has an appropriate affect and does not exhibit any anxiety or depression. Triage Information Reviewed: Yes Vital Signs On Initial Exam: Initial Vitals Temp Pulse Resp BP Pulse Ox 98.2 F 58 18 134/53 95 10/28/17 08:14 10/28/17 08:14 10/28/17 08:14 10/28/17 08:14 10/28/17 08:14 Vital Signs Reviewed: Yes Diagnostics - Vital Signs Vital Signs Temp Pulse Resp BP Pulse Ox 10/28/17 08:18 63 20 149/54 95 10/28/17 08:16 56 15 96 10/28/17 08:14 98.2 F 58 18 134/53 95 - Laboratory Lab Statement: Any lab studies that have been ordered have been reviewed, and results considered in the medical decision making process. Re-Evaluation - Re-Evaluation First Eval Re-Evaluation Time: 08:32 Comment: Discussed discharge plan with patient and his daughter, who are both agreeable to discharge Complex Multi-Symp Course/Dx Course Of Treatment: Mr. Antunez was sent over from the care home after an unwitnessed fall. The patient has no complaints. He has dementia and is pleasant and in no distress. There are some old bruises on him from a recent fall but nothing acute. At this point I see no reason for any further workup. - Diagnoses Provider Diagnoses: Fall Discharge - Sign-Out/Discharge Documenting (check all that apply): Patient Departure - Discharge - Discharge Plan Condition: Stable Disposition: HOME Patient Education Materials: Fall Prevention for Older Adults (ED) Referrals: Nav Feng MD [Primary Care Provider] - 2 Days Additional Instructions: Follow up with Dr. Feng in 2 days. RETURN TO THE EMERGENCY DEPARTMENT FOR NEW OR WORSENING SYMPTOMS. - Billing Disposition and Condition Condition: STABLE Disposition: Home - Attestation Statements Document Initiated by Karlaibe: Yes Documenting Scribe: Livia Shah Provider For Whom Kareem is Documenting (Include Credential): Savage Liu MD Scribe Attestation: Livia Ram, scribed for Savage Liu MD on 10/28/17 at 1041. Scribe Documentation Reviewed: Yes Provider Attestation: The documentation as recorded by the Livia foster accurately reflects the service I personally performed and the decisions made by me, Savage Liu MD
[2017-10-28 08:44] VITALS: BP 00/0
== END 2017-10-28 08:43 | disposition home or self-care (01) ==
LOC: ED 08:09
DX: Z04.3 Encounter for examination and observation following other accident (principal); F03.90 Unspecified dementia, unspecified severity, without behavioral disturbance, psychotic disturbance, mood disturbance, and anxiety; Z91.81 History of falling; Z87.891 Personal history of nicotine dependence
CPT/HCPCS: 99282